=== PATIENT | female | born 1940 | race Caucasian/White ===

== ENCOUNTER 2019-05-18 05:39 | Outpatient (RCR) | payer MEDICARE, MEDICAID, SELFPAY | END 2019-05-18 09:00 | disposition home or self-care (01) | LOC: ONCMED 05:39 | PROVIDERS: Family Provider Family Medicine; Visit Provider Nurse Practitioner | DX: D46.Z Other myelodysplastic syndromes (principal); E78.00 Pure hypercholesterolemia, unspecified; K21.9 Gastro-esophageal reflux disease without esophagitis; N18.3 Chronic kidney disease, stage 3 (moderate); I12.9 Hypertensive chronic kidney disease with stage 1 through stage 4 chronic kidney disease, or unspecified chronic kidney disease; E89.0 Postprocedural hypothyroidism; F32.9 Major depressive disorder, single episode, unspecified; R32 Unspecified urinary incontinence; Z85.828 Personal history of other malignant neoplasm of skin; Z79.899 Other long term (current) drug therapy; Z79.891 Long term (current) use of opiate analgesic | CPT/HCPCS: 36415; 36430; 80053 ×3; 83615; 85025 ×4; 86850 ×3; 86900 ×3; 86901 ×3; 86920 ×6; 96374 ×2; 99214; J1940 ×2; J7050 ×2; P9040 ×6 ==

== ENCOUNTER 2019-05-18 11:07 | Outpatient (RCR) | payer MEDICARE, MEDICAID, SELFPAY | END 2019-05-18 23:59 | disposition home or self-care (01) | LOC: ONCMED 11:07 | PROVIDERS: Family Provider Family Medicine; Visit Provider Internal Medicine Medical Oncology | DX: D46.Z Other myelodysplastic syndromes (principal) | CPT/HCPCS: 36430; 96374; G0463; J1940 ==

== ENCOUNTER → 2019-05-25 00:01 | Outpatient (RCR) | payer SELFPAY | LOC: ONCMED 05-24 12:20 | PROVIDERS: Family Provider Family Medicine; Visit Provider Internal Medicine Medical Oncology | DX: D46.Z Other myelodysplastic syndromes (principal) | CPT/HCPCS: 85025; 86850; 86900; 86901; 86920 ×2; 96374; J1940; J7050; P9040 ×2 ==

== ENCOUNTER 2019-06-22 08:00 | Outpatient (RCR) | payer MEDICARE, MEDICAID, SELFPAY ==
[2019-05-31 17:32] LABS: Hematocrit 22.8 % (37.0-47.0); Hemoglobin 7.2 g/dL (11.5-15.3); Lymphocytes # 0.2 10^3/uL (0.8-4.8); Lymphocytes % 46.7 %; Mean Corpuscular HGB Conc 31.6 g/dL (30.0-36.0); Mean Corpuscular Hemoglobin 28.9 pg (28.0-34.0); Mean Corpuscular Volume 91.6 fL (81-99); Monocytes % 6.7 %; Neutrophils % 44.4 %; Nucleated Red Blood Cells % 0 %; Red Blood Count 2.49 10^6/uL (4.1-5.3); Red Cell Distribution Width 14.1 % (12.1-15.1)
[2019-05-31 17:56] LABS: White Blood Count 0.5 10^3/uL (4.0-10.0)
[2019-05-31 17:57] LABS: Neutrophils # 0.2 10^3/uL (1.8-7.7); Platelet Count 28 10^3/cmm (130-400)
[2019-05-31 23:22] LABS: Alanine Aminotransferase 24 U/L (0-33); Albumin Level 3.5 g/dL (3.5-5.2); Alkaline Phosphatase 91 IU/L (35-105); Anion Gap 14.4 (5-19); Aspartate Amino Transferase 22 U/L (0-32); Blood Urea Nitrogen 47 mg/dL (8-23); Carbon Dioxide 27 mmol/L (22-29); Chloride 96 mmol/L (98-107); Globulin 2.8 g/dL (1.3-4.6); Glucose 109 mg/dL (74-106); Potassium 4.4 mmol/L (3.5-5.1); Sodium 133 mmol/L (136-145); Total Protein 6.3 g/dL (6.6-8.7)
[2019-06-01] VITALS (10 sets, daily range): BP systolic 94–159; BP diastolic 50–65; PULSE 64–82; RESP 16; TEMP 36.8–37; O2SAT 97–98
[2019-06-01] MEDS: acetaminophen 325 mg Tablet 650 MG PO (09:50)
[2019-06-01] MEDS: diphenhydrAMINE 25 mg Capsule PO (09:50)
--- NOTE | 2019-06-07 10:37 | ONC FU_ITS ---
Dr. Chavez Patient Follow-Up Note Patient: Radha Boyd Unit #: [id number]: [id number] Dicatated By: Martin Chavez M.D.Date of Visit:Jun 01, 2019 Onc Med Follow-up/Prog Note Chief Complaint: Myelodysplasia/anemia. History of Present Illness: This is a 78 year-old woman with myelodysplasia, IPSS-R score 2.5, low risk. She has associated transfusion dependent anemia. She had initially presented in 2010 with a mild anemia, hemoglobin at that time in the range of 10 g. Her white blood cell count was borderline low at 4800, but her platelet count was mildly elevated at 459,000. Bone marrow aspiration/biopsy in February 2011 showed mildly increased cellularity, estimated at 60-70%. There were increased megakaryocytes with associated dyspoiesis in the megakaryocytes and in the red cells. Iron stores were 1+. Blasts were estimated at 1%. The chromosome analysis was normal, and the FISH panel for myelodysplasia was negative. The findings were felt to be nonspecific, but suggestive of myeloproliferative/myelodysplastic disease. She did complete a course of parenteral iron replacement with Venofer in October 2012, but there was no improvement in the anemia. She also was given the option of trying an erythropoietin stimulating agent, but as she was not overtly symptomatic, she preferred to just monitor it with observation. Over a period of several years, her hemoglobin/hematocrit levels had declined very gradually, but remaining in the range of 8 to 9 g. She had developed some fatigue with it, but not significant enough in her opinion to warrant any treatment. In 2014 she had some further elevation of the platelet count and an increasing LDH level, though hemoglobin/hematocrit levels had remained stable. She was, though, showing some decline in performance status. She also complained of persistent pain in the right leg, from the groin to the knee. Her laboratory studies in January 2015 included a JAK2 gene mutation study, which was positive for the JAK2 V617F mutation. An MRI of the right hip in February showed abnormal signal with enhancement involving the right acetabulum, lateral femoral head, and joint capsule, which appeared to be on the basis of degenerative arthritis and acute superimposed inflammatory response. She underwent repeat bone marrow aspiration/biopsy on 04/05/2015. The marrow was hypercellular, with overall cellularity 75%, but focally packed in some areas up to 100%. There was significant megakaryocytic hyperplasia and megakaryocyte dyspoiesis. There was also evidence of dyserythropoiesis and granulocytes were noted to be hypogranular. Blasts were estimated at 2%. The chromosome analysis was normal and the FISH panel for MDS was negative. 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 Her calculated IPSS-R score was still in the low risk category at 2.5. With the worsening anemia, she definitely needed to start treatment. As her IPSS-R score was still in the low risk category, I opted to give her a trial of therapy with Revlimid and to then proceed to a demethylating agent, as necessary. We had some difficulty getting insurance approval for the Revlimid, but she eventually did start treatment on 06/07/2015 at a dose of 10 mg daily. Unfortunately, within a week she developed a bad rash and itching, severe enough that she did have to stop the medication on 06/16/2015. She subsequently started a trial of therapy with decitabine, with cycle 1 day 1 on 06/26/2015. She was able to tolerate it without any significant acute toxicity. Following her 1st cycle of decitabine she had developed persistent, severe granulocytopenia, which was not unexpected. She remained afebrile on antibiotic prophylaxis with Levaquin. She continued to require transfusions of PRBC at least every week, and she also did require a platelet pheresis. At day 29 her her granulocyte count was still only 100, and I did opt to give her a treatment delay. However, she did start cycle 2 as of 07/31/2015, with a CBC at that point showing hemoglobin at 8.1 g, white blood cell count 1300 with ANC 400, and platelet count 66,000. During subsequent follow-up, her ANC again dropped to 100, though she remained afebrile on antibiotic prophylaxis. She continued to require transfusions of packed red blood cells. Her platelet counts remained moderately decreased, but adequate. At cycle 2 day 29, there was no indication of improvement in her blood counts. She underwent bone marrow aspiration/biopsy on 09/06/2015. Interpretation was somewhat limited, as it was a dry tap. Cellularity was 30%. Megakaryocytes were noted to be increased with dyspoietic changes. The most significant change was the development of significant fibrosis, with strongly positive reticulin stain and strongly positive trichrome stain. With those findings, I recommended stopping the decitabine. She did consent to going to [facility] for a second opinion evaluation. She was seen at [facility] yesterday by Dr. Jennifer Quinn. Unfortunately, with her low blood counts, her further treatment options appear to be very limited. In particular, with the low platelet count she was not eligible for treatment with ruxolitinib. She did recommend that we consider repeating bone marrow aspiration/biopsy to reassess for possible leukemic transformation. During subsequent follow-up she was admitted several times with symptoms of diverticulitis. The episodes all resolved with antibiotic therapy and other conservative measures. A repeat MRI of the right hip on 06/06/2016 showed significant improvement in the marrow fatty replacement of the proximal femurs compared to the previous study in September 2015. There was significant abnormal marrow signal in the right femoral head. There was progression in the mild destructive and degenerative changes involving the right hip joint and there was mild progression of enhancement involving the acetabulum and synovium of the right hip, possibly related to progression of myelodysplastic disease. For a period of time she had shown some evidence of spontaneous recovery of her blood counts. She had still been requiring transfusion, but less frequently. There was significant improvement in her platelet count and in her granulocyte count. Following her visit in December 2016 she was given a prescription to start treatment with Exjade for the iron overload. After some delay she eventually did start taking it, but she stopped it within a short time because she felt she was getting too many phone calls about it. I had seen her for a follow-up visit on 12/26/2017. At that point she appeared significantly weaker and more short of breath. She had jugular venous distention. Clinically I had suspected that she was in heart failure, presumably from the iron overload, and I did have her start diuretic therapy. Echocardiogram showed adequate left ventricular ejection fraction of 55%, there was grade 2 diastolic dysfunction with moderately elevated filling pressures and there was moderately increased left atrial size. There was just mild mitral valve regurgitation and mild aortic valve stenosis. Her CT abdomen/pelvis showed increased cardiomegaly compared to previous study in February 2017, consistent with progressive cardiomyopathy. There was decreased attenuation of the periportal soft tissues suggestive of mild periportal fibrosis. There was evidence of axial skeletal osteosclerosis. She required admission to the hospital on 04/11/2018 for acute diastolic heart failure. She was discharged the following day, but on 04/13/2018 she returned to the emergency room for syncope in association with profound bradycardia. She was then admitted to [facility] in [place] where she underwent placement of permanent pacemaker. Following that admission she had temporary residential placement for physical therapy/rehabilitation, and she eventually was able to get placed in [facility] for assisted living. During this time, she remained transfusion dependent. Her other medical illnesses include hypertension, hypercholesterolemia, and GERD. She has stage III chronic kidney disease. She also has a history of hyperthyroidism and history of depression. She underwent laparoscopic cholecystectomy in August 2012. She had upper GI endoscopy and colonoscopy prior to that procedure. In January 2013 she underwent repair of a ventral hernia which developed following the cholecystectomy. Prior surgeries have been limited to partial thyroidectomy for goiter in 1990 and removal of a skin cancer from the nose in 1999. She does not smoke or drink alcohol. Family history significant in that a brother was treated for renal cell cancer. INTERIM HISTORY: Following admission to [facility], she had continued decline in her performance status, in part due to her anemia and cardiac issues and in part due to progressive worsening of her right hip joint pain. The pain became severe enough that eventually did have her evaluated by Dr. Pina for possible palliative surgery/hip replacement. CT of the right hip on 02/09/2019 did confirm progressive severe degenerative arthritic changes of the right hip joint. Ultimately she was offered the option of undergoing hip replacement, but she then opted against surgery. During followup she has continued symptomatic/supporitve care. She has remained transfusion dependent. She is seen for a followup visit. She has been feeling about the same. Her only new complaint is that she has been having more swelling in her legs. She continues have very limited activity. ECOG score is 3. She says her appetite is not as good, but she is eating. She occasionally has nosebleeds, attributable to dryness. She has some shortness of breath. She does not complain of chest pain. She has just occasional nausea. Bowel function has been okay. She has urinary frequency and incontinence. She continues to have constant pain in her right hip. It is tolerable on the pain medication. Medications: Arctic Relief Pain Relieving 1 (4 %) Gel (jelly) Topical four times a day PRN, Bumex 1 (2 mg) Tablet Oral daily, Duragesic-25 1 Patch(es) (of 50 mcg/hr) Patch 72 Hr Transdermal q 72 hours, Escitalopram Oxalate 1 Tablet (of 20 mg) Oral daily, Fleet Enema Enema Rectal PRN, Hydrocodone-Acetaminophen 1 Tablet (of 10-325 mg) Oral four times a day PRN, lacri-lube opthalmic 1 Ointment q 3 hours PRN, Loratadine 1 Capsule (of 10 mg) Oral daily, Milk of Magnesia 1 (400 mg/5mL) Suspension Oral PRN, Ondansetron 1 - 2 Tablet (of 4 mg) Oral q 8 hours, raNITIdine HCl 1 (150 mg) Capsule Oral b.i.d., Requip 1 Tablet (of 0.25 mg) Oral at bedtime, Saline 2 [place](s) (of 0.65 %) Solution Nasal four times a day PRN, Soothe Solution Ophthalmic PRN, Tums Tablet, chewable Oral PRN Allergies: Amoxicillin, Codeine Sulfate, contrast dye, Lenalidoide , and Revlimid. Review of Systems: Constitutional - Her energy is low, but it does seed cone picker after her blood transfusions. She is mainly sedentary. Her appetite is not very good, but her weight is up about 5 pounds. No fever, chills, hot flashes, or night sweats. ECOG score is 3, ENMT - She has sinus drainage. No mouth sores. No sore throat or difficulty swallowing, Hematologic/Lymphatic - She has nosebleeds. She bruises easily, Respiratory - She has shortness of breath with activity. No cough. No pleuritic pain or hemoptysis, Cardiovascular - No angina pain. No palpitations, Gastrointestinal - She has occasional nausea. No vomiting. No heartburn or acid reflux. No diarrhea or constipation. No blood in the stool or black stools, Genitourinary (F) - No dysuria or hematuria. She has urinary frequency. She has urgency and incontinence, Musculoskeletal - She has pain in her hip, Integumentary - No skin complications, Neurologic - No headache or dizziness. She has occasional numbness and tingling in her feet, Psychiatric - She has some depression and she wants to sleep all the time. No insomnia. Vital Signs: Performed on Jun 01, 2019 08:22 Height - 62.00 in Weight - 165.4 lbs (HIGH) BSA - 1.76 sq.m BMI - 30.25 (HIGH) Temperature - 98.2 F (LOW) Pulse - 75 /min Respiration - 16 /min BP - 96/44 mm(hg) O2 Sat - 96 % Pain - 0 Physical Examination: Constitutional - She appears generally weak, Eyes - Sclerae nonicteric. Conjunctivae clear, ENMT - No lesions noted in the oral cavity, Hematologic/Lymphatic - No cervical, clavicular, or axillary adenopathy, Respiratory - Lungs sound clear, Cardiovascular - Heart rhythm is regular. There is a III/ systolic murmur. There is no gallop or rub noted, Abdomen - Soft. Liver is enlarged. Spleen is not palpable. There is no abdominal mass or ascites noted and there is no inguinal adenopathy, Extremities - There is 3+ lower extremity edema on the right and 2+ on the left. She has extensive purpura, Neurologic - No focal neurologic deficits noted. Lab/Imaging: Test performed on May 31, 2019 16:23 Glucose 109 mg/dL BUN 47 mg/dL Creatinine 1.4 mg/dL Cr Clearance (Est) 38.59 mL/min Sodium 133 mmol/L Potassium 4.4 mmol/L Chloride 96 mmol/L CO2 27 mmol/L Calcium 9 mg/dL Protein, Total 6.3 g/dL Albumin 3.5 g/dL Globulin 2.8 g/dL Bilirubin, Total 1 mg/dL Alkaline Phosphatase 91 IU/L AST (SGOT) 22 IU/L ALT (SGPT) 24 IU/L WBC 0.5 10^9/L RBC 2.49 10^12/L HGB 7.2 g/dL HCT 22.8 % MCV 91.6 fl MCH 28.9 pg MCHC 31.6 g/dL RDW 14.1 % Platelet Count 28 10^9/L MPV 15 fL Neutrophils (Gran) 0.2 10^9/L Lymphocytes 0.2 10^9/L Monocytes 0 10^9/L Eosinophils 0 10^9/L Basophils 0 10^9/L Manual Segs 44.4 % Manual Lymphocytes 46.7 % Manual Monocytes 6.7 % Manual Eosinophils 0 % Manual Basophils 0 % Impression: 1. Patient with moderately severe anemia along with a mildly decreased white blood cell count and a mildly increased platelet count. The initial bone marrow findings in February 2011 were consistent with myelodysplasia. She opted not to attempt any treatment, as she really had not been all that symptomatic. 2. In December 2014 she had a significant increase in her platelet count and her LDH level also increased significantly. She then had a drop in her hemoglobin/hematocrit levels. A JAK2 gene mutation study was positive for the JAK2 V617F mutation. Along with the changes in her blood count, she had a significant decline in her performance status, and she also became transfusion dependent. 3. Repeat bone marrow aspiration/biopsy on 04/05/2015 continued to show findings consistent with myeloproliferative disease/myelodysplasia, though with no identifiable cytogenetic changes. Her calculated IPSS-R score was 2.5, low risk category. 4. A trial of Revlimid at 10 mg daily was initiated on 06/07/2015. Treatment was stopped as of 06/16/2015 due to multiple side effects, most significantly a skin eruption. 5. She then started treatment with decitabine, cycle 1 day 1 on 06/26/2015. She subsequently developed severe, persistent granulocytopenia, and she also remained transfusion dependent. 6. She received a second cycle of decitabine starting 07/31/2015. During subsequent follow-up she has had no evidence of response, as she has continued to have severe granulocytopenia and moderately severe thrombocytopenia, and she remained transfusion dependent. 7. She had repeat bone marrow aspiration/biopsy on 09/06/2015. Interpretation was somewhat limited, as it was a dry tap. Cellularity was 30%. Megakaryocytes were noted to be increased with dyspoietic changes. The most significant change was the development of significant fibrosis, with strongly positive reticulin stain and strongly positive trichrome stain. 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 Due to her low platelet count it was felt that she was not appropriate for treatment with ruxolitinib. 8. She had ongoing complaint of fairly severe pain in the right leg, from the groin down to the knee. MRI of the right hip showed findings which appeared most consistent with severe degenerative arthritis. 9. She has had several hospital admissions for symptoms of diverticulitis. These have resolved with conservative management. 10. She had evidence of transfusion associated iron overload, but she declined to treatment for it. 11. She has CT evidence of gradually enlarging goiter with extension into the mediastinum. In November 2017 she had presented to the emergency room with fullness in her throat and difficulty swallowing. She was also having shortness of breath and cough. In addition, during the preceding month she had developed increasing lower extremity edema. By clinical evaluation she appeared to be in heart failure, and a subsequent echocardiogram did show evidence of grade [address] abdomen/pelvis showed increasing cardiomegaly since February 2017, consistent with progressive cardiomyopathy. There were also findings in the liver suggestive of periportal fibrosis. 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 In March 2018 she required admission to the hospital for acute diastolic congestive heart failure, and she then required placement of permanent pacemaker for syncope in association with profound bradycardia. During subsequent follow-up she continued to require transfusion on a regular basis, and there was a continued gradual decline in her performance status. She eventually was admitted to [facility] for assisted living. Initially she did show some improvement in her quality of life. However, it has since then been declining, in large part due to the worsening pain in the right hip. She was evaluated by Dr. Pina, and she was offered the option of undergoing palliative hip replacement, but she ultimately opted against surgery. She has since then continued symptomatic/supportive care. She has remained transfusion dependent. She continues to have fairly marginal performance status. She recently has developed more significant lower extremity edema. Her blood pressure now is relatively low. Plan: Blood counts will be monitored weekly and she will be transfused as needed for hemoglobin less than 8 gm. I will stop the losartan. She will be scheduled for a followup visit in 2 months. Signed By: Martin Chavez M.D. <<Signature on File>>
[2019-06-07 14:29] LABS: Alanine Aminotransferase 27 U/L (0-33); Albumin Level 3.8 g/dL (3.5-5.2); Alkaline Phosphatase 100 IU/L (35-105); Anion Gap 14.4 (5-19); Aspartate Amino Transferase 24 U/L (0-32); Blood Urea Nitrogen 41 mg/dL (8-23); Calcium 9.1 mg/Dl (8.8-10.2); Carbon Dioxide 27 mmol/L (22-29); Chloride 96 mmol/L (98-107); Globulin 2.8 g/dL (1.3-4.6); Glucose 124 mg/dL (74-106); Potassium 4.4 mmol/L (3.5-5.1); Sodium 133 mmol/L (136-145); Total Bilirubin 1.1 mg/dL (0.15-1.2); Total Protein 6.6 g/dL (6.6-8.7)
[2019-06-07 15:17] LABS: Hematocrit 25.9 % (37.0-47.0); Hemoglobin 8.1 g/dL (11.5-15.3); Lymphocytes # 0.4 10^3/uL (0.8-4.8); Lymphocytes % 46.1 %; Mean Corpuscular HGB Conc 31.3 g/dL (30.0-36.0); Mean Corpuscular Hemoglobin 29.8 pg (28.0-34.0); Mean Corpuscular Volume 95.2 fL (81-99); Monocytes # 0.1 10^3/uL (0.2-0.9); Monocytes % 6.6 %; Nucleated Red Blood Cells % 0 %; Platelet Count 41 10^3/cmm (130-400); Red Blood Count 2.72 10^6/uL (4.1-5.3); Red Cell Distribution Width 14.1 % (12.1-15.1)
[2019-06-07 15:19] LABS: Neutrophils # 0.4 10^3/uL (1.8-7.7); White Blood Count 0.8 10^3/uL (4.0-10.0)
[2019-06-08] MEDS: diphenhydrAMINE 25 mg Capsule PO (08:45)
[2019-06-08] MEDS: acetaminophen 325 mg Tablet 650 MG PO (08:45)
[2019-06-08 09:10] VITALS: BP 93/56; RESP 18; TEMP 37.1; O2SAT 96
[2019-06-08 09:25] VITALS: BP 134/61; PULSE 72; RESP 18; O2SAT 99
[2019-06-08 10:25] VITALS: BP 130/62; PULSE 72; RESP 18; TEMP 37.2; O2SAT 95
[2019-06-08] MEDS: FUROsemide 10 mg/mL SDV 2mL 20 MG IV (10:30)
[2019-06-08 11:05] VITALS: BP 142/62; PULSE 70; RESP 18; TEMP 37.2
[2019-06-08] MEDS: sodium chloride 0.9% 250 ML 999 ML IV (11:08)
[2019-06-08 11:20] VITALS: BP 138/58; PULSE 70; RESP 18; TEMP 37.1; O2SAT 96
[2019-06-08 12:00] VITALS: BP 138/58; PULSE 70; RESP 18; TEMP 37.3; O2SAT 96
[2019-06-14 12:10] LABS: Hematocrit 23.2 % (37.0-47.0); Hemoglobin 7.4 g/dL (11.5-15.3); Lymphocytes # 0.2 10^3/uL (0.8-4.8); Lymphocytes % 45.7 %; Mean Corpuscular HGB Conc 31.9 g/dL (30.0-36.0); Mean Corpuscular Hemoglobin 29.1 pg (28.0-34.0); Mean Corpuscular Volume 91.3 fL (81-99); Monocytes % 8.7 %; Neutrophils % 43.4 %; Nucleated Red Blood Cells % 0 %; Red Blood Count 2.54 10^6/uL (4.1-5.3); Red Cell Distribution Width 13.6 % (12.1-15.1)
[2019-06-14 12:12] LABS: Neutrophils # 0.2 10^3/uL (1.8-7.7); Platelet Count 28 10^3/cmm (130-400); White Blood Count 0.5 10^3/uL (4.0-10.0)
[2019-06-14 14:24] LABS: Alanine Aminotransferase 29 U/L (0-33); Albumin Level 3.2 g/dL (3.5-5.2); Alkaline Phosphatase 91 IU/L (35-105); Anion Gap 16.5 (5-19); Aspartate Amino Transferase 25 U/L (0-32); Blood Urea Nitrogen 48 mg/dL (8-23); Calcium 8.7 mg/Dl (8.8-10.2); Carbon Dioxide 25 mmol/L (22-29); Chloride 96 mmol/L (98-107); Glucose 137 mg/dL (74-106); Potassium 4.5 mmol/L (3.5-5.1); Sodium 133 mmol/L (136-145); Total Bilirubin 1.3 mg/dL (0.15-1.2); Total Protein 6.2 g/dL (6.6-8.7)
[2019-06-15] VITALS (9 sets, daily range): BP systolic 132–162; BP diastolic 65–74; PULSE 67–74; RESP 18; TEMP 36.6–37.3; O2SAT 95–100
[2019-06-15] MEDS: sodium chloride 0.9% 250 ML 999 ML IV (08:30)
[2019-06-15] MEDS: diphenhydrAMINE 25 mg Capsule PO (08:30)
[2019-06-15] MEDS: acetaminophen 325 mg Tablet 650 MG PO (08:30)
[2019-06-15] MEDS: FUROsemide 10 mg/mL SDV 2mL 20 MG IV (11:00)
[2019-06-21 15:38] LABS: Hematocrit 22.3 % (37.0-47.0); Hemoglobin 7.2 g/dL (11.5-15.3); Lymphocytes # 0.2 10^3/uL (0.8-4.8); Mean Corpuscular HGB Conc 32.3 g/dL (30.0-36.0); Mean Corpuscular Hemoglobin 29.3 pg (28.0-34.0); Mean Corpuscular Volume 90.7 fL (81-99); Monocytes % 8.3 %; Neutrophils % 39.6 %; Nucleated Red Blood Cells % 0 %; Red Blood Count 2.46 10^6/uL (4.1-5.3); Red Cell Distribution Width 13.2 % (12.1-15.1)
[2019-06-21 16:39] LABS: Neutrophils # 0.2 10^3/uL (1.8-7.7); Platelet Count 28 10^3/cmm (130-400); Slide Review Slide Review Perform; White Blood Count 0.5 10^3/uL (4.0-10.0)
[2019-06-22] VITALS (8 sets, daily range): BP systolic 108–153; BP diastolic 57–69; PULSE 68–78; RESP 18; TEMP 36.8–36.9; O2SAT 95–97
[2019-06-22] MEDS: acetaminophen 325 mg Tablet 650 MG PO (13:56)
[2019-06-22] MEDS: diphenhydrAMINE 25 mg Capsule PO (13:57)
[2019-06-22] MEDS: sodium chloride 0.9% 250 ML 999 ML IV (13:59)
[2019-06-22] MEDS: sodium chloride 0.9% 100 ML IV (13:59)
[2019-06-22] MEDS: sodium chloride 0.9% 100 ML 99 ML (14:00)
== END 2019-06-25 23:59 | disposition home or self-care (01) ==
LOC: ONCMED 08:00
PROVIDERS: Nurse Practitioner; Family Provider Family Medicine; PCP Family Medicine; Visit Provider Internal Medicine Medical Oncology
DX: D46.Z Other myelodysplastic syndromes (principal); E83.111 Hemochromatosis due to repeated red blood cell transfusions; K74.69 Other cirrhosis of liver; I42.9 Cardiomyopathy, unspecified; I13.0 Hypertensive heart and chronic kidney disease with heart failure and stage 1 through stage 4 chronic kidney disease, or unspecified chronic kidney disease; N18.3 Chronic kidney disease, stage 3 (moderate); I50.30 Unspecified diastolic (congestive) heart failure; E78.00 Pure hypercholesterolemia, unspecified; K21.9 Gastro-esophageal reflux disease without esophagitis; F32.9 Major depressive disorder, single episode, unspecified; E89.0 Postprocedural hypothyroidism; Z79.899 Other long term (current) drug therapy; Z79.891 Long term (current) use of opiate analgesic; Z85.828 Personal history of other malignant neoplasm of skin; Z90.49 Acquired absence of other specified parts of digestive tract; Z95.0 Presence of cardiac pacemaker
CPT/HCPCS: 36415; 36430; 80053; 85025; 86850; 86900; 99214; J1940; J7050; P9040

== ENCOUNTER 2019-07-19 03:45 | Outpatient (RCR) | payer MEDICARE, MEDICAID, SELFPAY ==
[2019-06-28 14:55] LABS: Hemoglobin 7.9 g/dL (11.5-15.3); Lymphocytes # 0.3 10^3/uL (0.8-4.8); Lymphocytes % 54.4 %; Mean Corpuscular HGB Conc 31.6 g/dL (30.0-36.0); Mean Corpuscular Hemoglobin 28.7 pg (28.0-34.0); Mean Corpuscular Volume 90.9 fL (81-99); Neutrophils % 36.8 %; Nucleated Red Blood Cells % 0 %; Platelet Count 37 10^3/cmm (130-400); Red Blood Count 2.75 10^6/uL (4.1-5.3); Red Cell Distribution Width 13.2 % (12.1-15.1)
[2019-06-28 15:03] LABS: Neutrophils # 0.2 10^3/uL (1.8-7.7); White Blood Count 0.6 10^3/uL (4.0-10.0)
[2019-06-28 15:17] LABS: Alanine Aminotransferase 25 U/L (0-33); Albumin Level 3.1 g/dL (3.5-5.2); Alkaline Phosphatase 105 IU/L (35-105); Anion Gap 15.5 (5-19); Aspartate Amino Transferase 22 U/L (0-32); Blood Urea Nitrogen 47 mg/dL (8-23); Calcium 8.9 mg/dL (8.5-10.5); Carbon Dioxide 26 mmol/L (22-29); Chloride 94 mmol/L (98-107); Globulin 3.5 g/dL (1.3-4.6); Glucose 116 mg/dL (74-106); Potassium 4.5 mmol/L (3.5-5.1); Sodium 131 mmol/L (136-145); Total Bilirubin 1.1 mg/dL (0.15-1.2); Total Protein 6.6 g/dL (6.6-8.7)
[2019-06-29] VITALS (9 sets, daily range): BP systolic 110–128; BP diastolic 50–68; PULSE 66–78; RESP 18; TEMP 36.6–37; O2SAT 95–98
[2019-06-29] MEDS: acetaminophen 325 mg Tablet 650 MG PO (16:14)
[2019-06-29] MEDS: diphenhydrAMINE 25 mg Capsule PO (16:15)
[2019-06-29] MEDS: sodium chloride 0.9% 500 ML 999 ML IV (16:16)
[2019-06-29] MEDS: FUROsemide 10 mg/mL SDV 2mL 20 MG IV (16:16)
[2019-07-05 15:08] LABS: Basophils % 1.7 %; Hematocrit 24.8 % (37.0-47.0); Hemoglobin 7.8 g/dL (11.5-15.3); Lymphocytes # 0.3 10^3/uL (0.8-4.8); Lymphocytes % 53.3 %; Mean Corpuscular HGB Conc 31.5 g/dL (30.0-36.0); Mean Corpuscular Hemoglobin 27.6 pg (28.0-34.0); Mean Corpuscular Volume 87.6 fL (81-99); Monocytes # 0.1 10^3/uL (0.2-0.9); Monocytes % 8.3 %; Nucleated Red Blood Cells % 0 %; Platelet Count 32 10^3/cmm (130-400); Red Blood Count 2.83 10^6/uL (4.1-5.3); Red Cell Distribution Width 13.9 % (12.1-15.1)
[2019-07-05 15:23] LABS: Alanine Aminotransferase 27 U/L (0-33); Albumin Level 3.3 g/dL (3.5-5.2); Alkaline Phosphatase 103 IU/L (35-105); Anion Gap 14.1 (5-19); Aspartate Amino Transferase 23 U/L (0-32); Blood Urea Nitrogen 57 mg/dL (8-23); Calcium 8.6 mg/dL (8.5-10.5); Carbon Dioxide 25 mmol/L (22-29); Chloride 96 mmol/L (98-107); Glucose 135 mg/dL (65-115); Potassium 5.1 mmol/L (3.5-5.1); Sodium 130 mmol/L (136-145); Total Bilirubin 0.8 mg/dL (0.15-1.2); Total Protein 6.3 g/dL (6.6-8.7)
[2019-07-05 15:26] LABS: Neutrophils # 0.2 10^3/uL (1.8-7.7); White Blood Count 0.6 10^3/uL (4.0-10.0)
[2019-07-07] VITALS (9 sets, daily range): BP systolic 121–134; BP diastolic 54–62; PULSE 67–73; RESP 18; TEMP 36.6–36.9; O2SAT 96
[2019-07-07] MEDS: acetaminophen 325 mg Tablet 650 MG PO (16:15)
[2019-07-07] MEDS: sodium chloride 0.9% 250 ML 999 ML IV (16:15)
[2019-07-07] MEDS: FUROsemide 10 mg/mL SDV 2mL 20 MG IV (16:16)
[2019-07-07] MEDS: diphenhydrAMINE 25 mg Capsule PO (16:17)
[2019-07-12 08:16] LABS: Hematocrit 25.5 % (37.0-47.0); Hemoglobin 8.1 g/dL (11.5-15.3); Lymphocytes # 0.4 10^3/uL (0.8-4.8); Mean Corpuscular HGB Conc 31.8 g/dL (30.0-36.0); Mean Corpuscular Hemoglobin 27.4 pg (28.0-34.0); Mean Corpuscular Volume 86.1 fL (81-99); Monocytes % 5.7 %; Neutrophils % 26.4 %; Nucleated Red Blood Cells % 0 %; Platelet Count 38 10^3/cmm (130-400); Red Blood Count 2.96 10^6/uL (4.1-5.3); Red Cell Distribution Width 13.5 % (12.1-15.1)
[2019-07-12 08:31] LABS: Mean Platelet Volume 10.5 fL (7.4-10.4); Neutrophils # 0.1 10^3/uL (1.8-7.7); White Blood Count 0.5 10^3/uL (4.0-10.0)
[2019-07-13] VITALS (9 sets, daily range): BP systolic 112–121; BP diastolic 59–64; PULSE 64–70; RESP 18; TEMP 20.5–37.1; O2SAT 96–98
[2019-07-13] MEDS: diphenhydrAMINE 25 mg Capsule PO (14:42)
[2019-07-13] MEDS: acetaminophen 325 mg Tablet 650 MG PO (14:42)
[2019-07-13] MEDS: FUROsemide 10 mg/mL SDV 2mL 20 MG IV (14:54)
[2019-07-13] MEDS: sodium chloride 0.9% 250 ML 999 ML IV (14:56)
[2019-07-19 08:45] LABS: Hematocrit 27.1 % (37.0-47.0); Hemoglobin 8.6 g/dL (11.5-15.3); Lymphocytes # 0.3 10^3/uL (0.8-4.8); Lymphocytes % 58.5 %; Mean Corpuscular HGB Conc 31.7 g/dL (30.0-36.0); Mean Corpuscular Hemoglobin 29.1 pg (28.0-34.0); Mean Corpuscular Volume 91.6 fL (81-99); Monocytes % 7.5 %; Neutrophils % 32.1 %; Nucleated Red Blood Cells % 0 %; Platelet Count 31 10^3/cmm (130-400); Red Blood Count 2.96 10^6/uL (4.1-5.3); Red Cell Distribution Width 13.5 % (12.1-15.1)
[2019-07-19 09:40] LABS: Neutrophils # 0.2 10^3/uL (1.8-7.7); White Blood Count 0.5 10^3/uL (4.0-10.0)
== END 2019-07-24 23:59 | disposition home or self-care (01) ==
LOC: ONCMED 03:45
PROVIDERS: Nurse Practitioner; Family Provider Family Medicine; PCP Family Medicine; Visit Provider Internal Medicine Medical Oncology
DX: D46.Z Other myelodysplastic syndromes (principal)
CPT/HCPCS: 36415; 36430; 80053; 85025; 86850; 86900; 96361; 96374; J1940; J7040; J7050; P9040

== ENCOUNTER 2019-08-24 08:21 | Outpatient (RCR) | payer MEDICARE, MEDICAID, SELFPAY ==
[2019-07-26] VITALS (9 sets, daily range): BP systolic 111–139; BP diastolic 52–72; PULSE 71–74; RESP 17–18; TEMP 36.6–37; O2SAT 96–98
[2019-07-26 09:45] LABS: Basophils % 1.1 %; Hematocrit 24.3 % (37.0-47.0); Hemoglobin 7.6 g/dL (11.5-15.3); Lymphocytes # 0.6 10^3/uL (0.8-4.8); Lymphocytes % 61.1 %; Mean Corpuscular HGB Conc 31.3 g/dL (30.0-36.0); Mean Corpuscular Hemoglobin 28.7 pg (28.0-34.0); Mean Corpuscular Volume 91.7 fL (81-99); Monocytes # 0.1 10^3/uL (0.2-0.9); Monocytes % 5.3 %; Neutrophils % 31.4 %; Nucleated Red Blood Cells % 0 %; Platelet Count 53 10^3/cmm (130-400); Red Blood Count 2.65 10^6/uL (4.1-5.3)
[2019-07-26 10:17] LABS: Neutrophils # 0.3 10^3/uL (1.8-7.7)
[2019-07-26] MEDS: sodium chloride 0.9% 250 ML 999 ML IV (17:07)
[2019-07-26] MEDS: FUROsemide 10 mg/mL SDV 2mL 20 MG IV (17:07)
[2019-07-26] MEDS: diphenhydrAMINE 25 mg Capsule PO (17:07)
[2019-07-26] MEDS: acetaminophen 325 mg Tablet 650 MG PO (17:07)
[2019-08-02 08:55] LABS: Hematocrit 22.3 % (37.0-47.0); Hemoglobin 7.1 g/dL (11.5-15.3); Lymphocytes # 0.3 10^3/uL (0.8-4.8); Lymphocytes % 55.6 %; Mean Corpuscular HGB Conc 31.8 g/dL (30.0-36.0); Mean Corpuscular Hemoglobin 29.3 pg (28.0-34.0); Mean Corpuscular Volume 92.1 fL (81-99); Monocytes % 4.4 %; Neutrophils % 35.6 %; Nucleated Red Blood Cells % 0 %; Platelet Count 30 10^3/cmm (130-400); Red Blood Count 2.42 10^6/uL (4.1-5.3); Red Cell Distribution Width 13.5 % (12.1-15.1)
[2019-08-02 09:20] LABS: Alanine Aminotransferase 17 U/L (0-33); Alkaline Phosphatase 100 IU/L (35-105); Anion Gap 13.5 (5-19); Aspartate Amino Transferase 16 U/L (0-32); Blood Urea Nitrogen 32 mg/dL (8-23); Calcium 8.7 mg/dL (8.5-10.5); Carbon Dioxide 26 mmol/L (22-29); Chloride 99 mmol/L (98-107); Globulin 3.2 g/dL (1.3-4.6); Glucose 91 mg/dL (65-115); Osmolality Calculated 275 mOsm/kg (285-295); Potassium 4.5 mmol/L (3.5-5.1); Sodium 134 mmol/L (136-145); Total Bilirubin 1.1 mg/dL (0.15-1.2); Total Protein 6.2 g/dL (6.6-8.7)
[2019-08-02 09:56] LABS: Neutrophils # 0.2 10^3/uL (1.8-7.7); Slide Review Slide Review Perform; White Blood Count 0.5 10^3/uL (4.0-10.0)
[2019-08-03] VITALS (11 sets, daily range): BP systolic 124–163; BP diastolic 49–71; PULSE 66–71; RESP 18; TEMP 36.4–36.8; O2SAT 97–99
[2019-08-03] MEDS: diphenhydrAMINE 25 mg Capsule PO (08:10)
[2019-08-03] MEDS: acetaminophen 325 mg Tablet 650 MG PO (08:10)
[2019-08-03] MEDS: sodium chloride 0.9% 250 ML 999 ML IV (08:20)
[2019-08-03] MEDS: FUROsemide 10 mg/mL SDV 2mL 20 MG IV (10:00)
[2019-08-03] MEDS: HYDROmorphone 1 mg/mL INJ 1 mL 2 MG SUBCUT (10:15)
--- NOTE | 2019-08-03 11:45 | PC.NURSE ---
IV dc'd and this time, catheter intake, site asymptomatic.
[2019-08-09 17:39] LABS: Hematocrit 23.7 % (37.0-47.0); Hemoglobin 7.4 g/dL (11.5-15.3); Lymphocytes # 0.4 10^3/uL (0.8-4.8); Lymphocytes % 60.9 %; Mean Corpuscular HGB Conc 31.2 g/dL (30.0-36.0); Mean Corpuscular Hemoglobin 29.4 pg (28.0-34.0); Monocytes # 0.1 10^3/uL (0.2-0.9); Monocytes % 11.6 %; Neutrophils % 26.1 %; Nucleated Red Blood Cells % 0 %; Platelet Count 34 10^3/cmm (130-400); Red Blood Count 2.52 10^6/uL (4.1-5.3); Red Cell Distribution Width 13.6 % (12.1-15.1)
[2019-08-09 18:00] LABS: Neutrophils # 0.2 10^3/uL (1.8-7.7); White Blood Count 0.7 10^3/uL (4.0-10.0)
[2019-08-10] VITALS (10 sets, daily range): BP systolic 104–148; BP diastolic 48–64; PULSE 65–94; RESP 18; TEMP 36.2–36.9; O2SAT 95–97
[2019-08-10] MEDS: diphenhydrAMINE 25 mg Capsule PO (12:32)
[2019-08-10] MEDS: sodium chloride 0.9% 250 ML 999 ML IV (12:32)
[2019-08-10] MEDS: acetaminophen 325 mg Tablet 650 MG PO (12:32)
[2019-08-10] MEDS: FUROsemide 10 mg/mL SDV 2mL 20 MG IV (14:40)
[2019-08-16] VITALS (10 sets, daily range): BP systolic 117–159; BP diastolic 55–67; PULSE 65–82; RESP 16–18; TEMP 36.2–36.6; O2SAT 94–98
[2019-08-16 06:15] LABS: Basophils % 1.5 %; Hematocrit 25.4 % (37.0-47.0); Hemoglobin 8.1 g/dL (11.5-15.3); Lymphocytes # 0.4 10^3/uL (0.8-4.8); Lymphocytes % 58.8 %; Mean Corpuscular HGB Conc 31.9 g/dL (30.0-36.0); Mean Corpuscular Hemoglobin 28.8 pg (28.0-34.0); Mean Corpuscular Volume 90.4 fL (81-99); Monocytes # 0.1 10^3/uL (0.2-0.9); Monocytes % 7.4 %; Neutrophils % 30.8 %; Nucleated Red Blood Cells % 0 %; Platelet Count 36 10^3/cmm (130-400); Red Blood Count 2.81 10^6/uL (4.1-5.3); Red Cell Distribution Width 13.3 % (12.1-15.1)
[2019-08-16 08:27] LABS: Neutrophils # 0.2 10^3/uL (1.8-7.7); White Blood Count 0.7 10^3/uL (4.0-10.0)
[2019-08-16] MEDS: acetaminophen 325 mg Tablet 650 MG PO (10:55)
[2019-08-16] MEDS: diphenhydrAMINE 25 mg Capsule PO (10:55)
[2019-08-16] MEDS: sodium chloride 0.9% 250 ML 999 ML IV (11:00)
[2019-08-16] MEDS: FUROsemide 10 mg/mL SDV 2mL 20 MG IV (13:08)
[2019-08-23 12:00] LABS: Hematocrit 22.7 % (37.0-47.0); Hemoglobin 7.2 g/dL (11.5-15.3); Lymphocytes # 0.3 10^3/uL (0.8-4.8); Lymphocytes % 56.4 %; Mean Corpuscular HGB Conc 31.7 g/dL (30.0-36.0); Mean Corpuscular Volume 91.5 fL (81-99); Monocytes % 7.3 %; Neutrophils % 34.5 %; Nucleated Red Blood Cells % 0 %; Platelet Count 32 10^3/cmm (130-400); Red Blood Count 2.48 10^6/uL (4.1-5.3); Red Cell Distribution Width 13.2 % (12.1-15.1)
[2019-08-23 13:00] LABS: Alanine Aminotransferase 24 U/L (0-33); Albumin Level 3.1 g/dL (3.5-5.2); Alkaline Phosphatase 96 IU/L (35-105); Anion Gap 13.6 (5-19); Aspartate Amino Transferase 22 U/L (0-32); Blood Urea Nitrogen 44 mg/dL (8-23); Calcium 8.9 mg/dL (8.5-10.5); Carbon Dioxide 27 mmol/L (22-29); Chloride 99 mmol/L (98-107); Free T4 Free Thyroxine 1.42 ng/dL (0.82-1.77); Globulin 2.6 g/dL (1.3-4.6); Glucose 85 mg/dL (65-115); Lactate Dehydrogenase 143 U/L (135-214); Osmolality Calculated 277 mOsm/kg (285-295); Potassium 4.6 mmol/L (3.5-5.1); Sodium 135 mmol/L (136-145); Thyroid Stimulating Hormone 0.05 uIU/mL (0.27-4.20); Total Bilirubin 1.2 mg/dL (0.15-1.2); Total Protein 5.7 g/dL (6.6-8.7)
[2019-08-23 13:53] LABS: Neutrophils # 0.2 10^3/uL (1.8-7.7); White Blood Count 0.6 10^3/uL (4.0-10.0)
[2019-08-23 13:54] LABS: Slide Review Slide Review Perform
[2019-08-24] VITALS (10 sets, daily range): BP systolic 117–132; BP diastolic 57–68; PULSE 68–80; RESP 16; TEMP 36.6–37.1; O2SAT 94–97
[2019-08-24] MEDS: sodium chloride 0.9% 250 ML 999 ML IV (09:00)
[2019-08-24] MEDS: ondansetron 2 mg/ML SDV 2 mL 8 MG IV (09:06)
[2019-08-24] MEDS: diphenhydrAMINE 25 mg Capsule PO (09:10)
[2019-08-24] MEDS: acetaminophen 325 mg Tablet 650 MG PO (09:10)
[2019-08-24] MEDS: FUROsemide 10 mg/mL SDV 2mL 20 MG IV (11:30)
== END 2019-08-24 23:59 | disposition home or self-care (01) ==
LOC: ONCMED 08:21
PROVIDERS: Family Provider Family Medicine; PCP Family Medicine; Visit Provider Internal Medicine Medical Oncology
DX: D64.9 Anemia, unspecified (principal)
CPT/HCPCS: 36430; 80053; 83615; 84439; 84443; 85025; 86850; 86900; 86920; 96372; 96374; J1170; J1940; J2405; J7050; P9040

== ENCOUNTER 2019-09-13 05:30 | Outpatient (RCR) | payer MEDICARE, MEDICAID, SELFPAY ==
[2019-08-30 07:34] LABS: Hematocrit 24.3 % (37.0-47.0); Hemoglobin 7.6 g/dL (11.5-15.3); Lymphocytes # 0.4 10^3/uL (0.8-4.8); Lymphocytes % 69.5 %; Mean Corpuscular HGB Conc 31.3 g/dL (30.0-36.0); Mean Corpuscular Hemoglobin 28.7 pg (28.0-34.0); Mean Corpuscular Volume 91.7 fL (81-99); Monocytes # 0.1 10^3/uL (0.2-0.9); Monocytes % 8.5 %; Neutrophils % 20.3 %; Nucleated Red Blood Cells % 0 %; Platelet Count 33 10^3/cmm (130-400); Red Blood Count 2.65 10^6/uL (4.1-5.3); Red Cell Distribution Width 13.1 % (12.1-15.1)
[2019-08-30 07:55] LABS: Alanine Aminotransferase 23 U/L (0-33); Albumin Level 3.1 g/dL (3.5-5.2); Alkaline Phosphatase 110 IU/L (35-105); Anion Gap 11.7 (5-19); Aspartate Amino Transferase 22 U/L (0-32); Blood Urea Nitrogen 39 mg/dL (8-23); Calcium 8.6 mg/dL (8.5-10.5); Carbon Dioxide 27 mmol/L (22-29); Chloride 98 mmol/L (98-107); Free T4 Free Thyroxine 1.38 ng/dL (0.82-1.77); Globulin 3.1 g/dL (1.3-4.6); Glucose 85 mg/dL (65-115); Lactate Dehydrogenase 149 U/L (135-214); Osmolality Calculated 271 mOsm/kg (285-295); Potassium 4.7 mmol/L (3.5-5.1); Sodium 132 mmol/L (136-145); Thyroid Stimulating Hormone 0.04 uIU/mL (0.27-4.20); Total Bilirubin 1.4 mg/dL (0.15-1.2); Total Protein 6.2 g/dL (6.6-8.7)
[2019-08-30 08:05] LABS: Slide Review Slide Review Perform
[2019-08-30 08:21] LABS: White Blood Count 0.6 10^3/uL (4.0-10.0)
[2019-08-30 08:22] LABS: Neutrophils # 0.1 10^3/uL (1.8-7.7)
[2019-08-31] VITALS (10 sets, daily range): BP systolic 128–152; BP diastolic 55–70; PULSE 67–76; RESP 17–18; TEMP 37.1–37.6; O2SAT 95–97
[2019-08-31] MEDS: diphenhydrAMINE 25 mg Capsule PO (08:30)
[2019-08-31] MEDS: acetaminophen 325 mg Tablet 650 MG PO ×2 (08:30→12:06)
[2019-08-31] MEDS: HYDROmorphone 1 mg/mL INJ 1 mL SUBCUT (08:34)
[2019-08-31] MEDS: sodium chloride 0.9% 250 ML 999 ML IV (09:00)
[2019-08-31] MEDS: FUROsemide 10 mg/mL SDV 2mL 20 MG IV (10:42)
--- NOTE | 2019-08-31 12:34 | ONC FU_ITS ---
Dr. Chavez Patient Follow-Up Note Patient: Radha Boyd Unit #: [id number]: 1940 Dicatated By: Martin Chavez M.D.Date of Visit:Aug 31, 2019 Onc Med Follow-up/Prog Note Chief Complaint: Myelodysplasia/anemia. History of Present Illness: This is an 79 year-old woman with myelodysplasia, IPSS-R score 2.5, low risk. She has associated transfusion dependent anemia and associated iron overload. She had initially presented in 2010 with a mild anemia, hemoglobin at that time in the range of 10 g. Her white blood cell count was borderline low at 4800, but her platelet count was mildly elevated at 459,000. Bone marrow aspiration/biopsy in February 2011 showed mildly increased cellularity, estimated at 60-70%. There were increased megakaryocytes with associated dyspoiesis in the megakaryocytes and in the red cells. Iron stores were 1+. Blasts were estimated at 1%. The chromosome analysis was normal, and the FISH panel for myelodysplasia was negative. The findings were felt to be nonspecific, but suggestive of myeloproliferative/myelodysplastic disease. She did complete a course of parenteral iron replacement with Venofer in October 2012, but there was no improvement in the anemia. She also was given the option of trying an erythropoietin stimulating agent, but as she was not overtly symptomatic, she preferred to just monitor it with observation. Over a period of several years, her hemoglobin/hematocrit levels had declined very gradually, but remaining in the range of 8 to 9 g. She had developed some fatigue with it, but not significant enough in her opinion to warrant any treatment. In 2014 she had some further elevation of the platelet count and an increasing LDH level, though hemoglobin/hematocrit levels had remained stable. She was, though, showing some decline in performance status. She also complained of persistent pain in the right leg, from the groin to the knee. Her laboratory studies in January 2015 included a JAK2 gene mutation study, which was positive for the JAK2 V617F mutation. An MRI of the right hip in February showed abnormal signal with enhancement involving the right acetabulum, lateral femoral head, and joint capsule, which appeared to be on the basis of degenerative arthritis and acute superimposed inflammatory response. She underwent repeat bone marrow aspiration/biopsy on 04/05/2015. The marrow was hypercellular, with overall cellularity 75%, but focally packed in some areas up to 100%. There was significant megakaryocytic hyperplasia and megakaryocyte dyspoiesis. There was also evidence of dyserythropoiesis and granulocytes were noted to be hypogranular. Blasts were estimated at 2%. The chromosome analysis was normal and the FISH panel for MDS was negative. 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 Her calculated IPSS-R score was still in the low risk category at 2.5. With the worsening anemia, she definitely needed to start treatment. As her IPSS-R score was still in the low risk category, I opted to give her a trial of therapy with Revlimid and to then proceed to a demethylating agent, as necessary. We had some difficulty getting insurance approval for the Revlimid, but she eventually did start treatment on 06/07/2015 at a dose of 10 mg daily. Unfortunately, within a week she developed a bad rash and itching, severe enough that she did have to stop the medication on 06/16/2015. She subsequently started a trial of therapy with decitabine, with cycle 1 day 1 on 06/26/2015. She was able to tolerate it without any significant acute toxicity. Following her 1st cycle of decitabine she had developed persistent, severe granulocytopenia, which was not unexpected. She remained afebrile on antibiotic prophylaxis with Levaquin. She continued to require transfusions of PRBC at least every week, and she also did require a platelet pheresis. At day 29 her her granulocyte count was still only 100, and I did opt to give her a treatment delay. However, she did start cycle 2 as of 07/31/2015, with a CBC at that point showing hemoglobin at 8.1 g, white blood cell count 1300 with ANC 400, and platelet count 66,000. During subsequent follow-up, her ANC again dropped to 100, though she remained afebrile on antibiotic prophylaxis. She continued to require transfusions of packed red blood cells. Her platelet counts remained moderately decreased, but adequate. At cycle 2 day 29, there was no indication of improvement in her blood counts. She underwent bone marrow aspiration/biopsy on 09/06/2015. Interpretation was somewhat limited, as it was a dry tap. Cellularity was 30%. Megakaryocytes were noted to be increased with dyspoietic changes. The most significant change was the development of significant fibrosis, with strongly positive reticulin stain and strongly positive trichrome stain. With those findings, I recommended stopping the decitabine. She did consent to going to [facility] for a second opinion evaluation. She was seen at [facility] yesterday by Dr. Jennifer Quinn. Unfortunately, with her low blood counts, her further treatment options appear to be very limited. In particular, with the low platelet count she was not eligible for treatment with ruxolitinib. She did recommend that we consider repeating bone marrow aspiration/biopsy to reassess for possible leukemic transformation. During subsequent follow-up she was admitted several times with symptoms of diverticulitis. The episodes all resolved with antibiotic therapy and other conservative measures. A repeat MRI of the right hip on 06/06/2016 showed significant improvement in the marrow fatty replacement of the proximal femurs compared to the previous study in September 2015. There was significant abnormal marrow signal in the right femoral head. There was progression in the mild destructive and degenerative changes involving the right hip joint and there was mild progression of enhancement involving the acetabulum and synovium of the right hip, possibly related to progression of myelodysplastic disease. For a period of time she had shown some evidence of spontaneous recovery of her blood counts. She had still been requiring transfusion, but less frequently. There was significant improvement in her platelet count and in her granulocyte count. Following her visit in December 2016 she was given a prescription to start treatment with Exjade for the iron overload. After some delay she eventually did start taking it, but she stopped it within a short time because she felt she was getting too many phone calls about it. I had seen her for a follow-up visit on 12/26/2017. At that point she appeared significantly weaker and more short of breath. She had jugular venous distention. Clinically I had suspected that she was in heart failure, presumably from the iron overload, and I did have her start diuretic therapy. Echocardiogram showed adequate left ventricular ejection fraction of 55%, there was grade 2 diastolic dysfunction with moderately elevated filling pressures and there was moderately increased left atrial size. There was just mild mitral valve regurgitation and mild aortic valve stenosis. Her CT abdomen/pelvis showed increased cardiomegaly compared to previous study in February 2017, consistent with progressive cardiomyopathy. There was decreased attenuation of the periportal soft tissues suggestive of mild periportal fibrosis. There was evidence of axial skeletal osteosclerosis. She required admission to the hospital on 04/11/2018 for acute diastolic heart failure. She was discharged the following day, but on 04/13/2018 she returned to the emergency room for syncope in association with profound bradycardia. She was then admitted to [facility] in [place] where she underwent placement of permanent pacemaker. Following that admission she had temporary prison placement for physical therapy/rehabilitation, and she eventually was able to get placed in [facility] for assisted living. During this time, she remained transfusion dependent. Her other medical illnesses include hypertension, hypercholesterolemia, and GERD. She has stage III chronic kidney disease. She also has a history of hyperthyroidism and history of depression. She underwent laparoscopic cholecystectomy in August 2012. She had upper GI endoscopy and colonoscopy prior to that procedure. In January 2013 she underwent repair of a ventral hernia which developed following the cholecystectomy. Prior surgeries have been limited to partial thyroidectomy for goiter in 1990 and removal of a skin cancer from the nose in 1999. She does not smoke or drink alcohol. Family history significant in that a brother was treated for renal cell cancer. INTERIM HISTORY: Following admission to [facility], she had continued decline in her performance status, in part due to her anemia and cardiac issues and in part due to progressive worsening of her right hip joint pain. The pain became severe enough that eventually did have her evaluated by Dr. Pina for possible palliative surgery/hip replacement. CT of the right hip on 02/09/2019 did confirm progressive severe degenerative arthritic changes of the right hip joint. Ultimately she was offered the option of undergoing hip replacement, but she then opted against surgery. During followup she has continued symptomatic/supporitve care. She has remained transfusion dependent. She is seen for a followup visit. She has not been feeling good. Her main complaint is that her right hip pain continues to get worse despite having pain medication, including an increased dosage on her fentanyl patch and hydrocodone/APAP as needed. She says the pain gets bad enough that she can hardly bear it. She does have some increase in her energy with blood transfusion, but her activity remains very limited. ECOG score is 3. Her appetite is good enough, though not as good as it used to be. She has not had fever or night sweats. She says her breathing has been pretty good lately. She has not had cough and she does not complain of chest pain. She has no GI complaints. She does have frequent urination and she has urgency/incontinence. She does not complain of headache or dizziness. She has some numbness/tingling in her feet, and she complains that her hands and arms cramp up. She also complains that her memory is getting worse. Medications: Arctic Relief Pain Relieving 1 (4 %) Gel (jelly) Topical four times a day PRN, Bumex 1 (2 mg) Tablet Oral daily, Duragesic-25 1 Patch(es) (of 50 mcg/hr) Patch 72 Hr Transdermal q 72 hours, Escitalopram Oxalate 1 Tablet (of 20 mg) Oral daily, Fleet Enema Enema Rectal PRN, Hydrocodone-Acetaminophen 1 Tablet (of 10-325 mg) Oral four times a day PRN, lacri-lube opthalmic 1 Ointment q 3 hours PRN, Loratadine 1 Capsule (of 10 mg) Oral daily, Milk of Magnesia 1 (400 mg/5mL) Suspension Oral PRN, Ondansetron 1 - 2 Tablet (of 4 mg) Oral q 8 hours, raNITIdine HCl 1 (150 mg) Capsule Oral b.i.d., Requip 1 Tablet (of 0.25 mg) Oral at bedtime, Saline 2 [place](s) (of 0.65 %) Solution Nasal four times a day PRN, Soothe Solution Ophthalmic PRN, Tums Tablet, chewable Oral PRN Allergies: Amoxicillin, Codeine Sulfate, contrast dye, Lenalidoide , and Revlimid. Review of Systems: Constitutional - Her energy is a little better after her blood transfusions, but her activity remains very limited. She is mainly sedentary. Her appetite is good enough, but not as good as it used to be. No fever, chills, hot flashes, or night sweats. ECOG score is 3, ENMT - No sinus congestion/drainage. She has a bad tooth. No sore throat or difficulty swallowing, Hematologic/Lymphatic - She has some bruising, Respiratory - Her breathing is pretty good. No cough. No pleuritic pain or hemoptysis, Cardiovascular - No angina pain. No palpitations, Gastrointestinal - No nausea or vomiting. No heartburn or acid reflux. No diarrhea or constipation. No blood in the stool or black stools, Genitourinary (F) - No dysuria or hematuria. She has urinary frequency with urgency and incontinence, Musculoskeletal - She has pain in her right hip, which has continued to get worse, Integumentary - No skin complications, Neurologic - No headache or dizziness. She has occasional numbness and tingling in her feet. She also complains that her hands and arms cramp up, Psychiatric - She has some depression, but not as bad. She usually sleeps OK. Vital Signs: Blood pressure 130/55, pulse 71, respirations 18, temp 99.7 degrees, oxygen saturation 95%. Physical Examination: Constitutional - She appears generally weak, Eyes - Sclerae nonicteric. Conjunctivae clear, ENMT - She has a few remaining teeth which are in poor repair. There are no other lesions noted in the oral cavity, Hematologic/Lymphatic - No cervical, clavicular, or axillary adenopathy, Respiratory - Lungs sound clear, Cardiovascular - Heart rhythm is regular. There is a III/ systolic murmur. There is no gallop or rub noted, Abdomen - Mildly distended and firm. Liver appears to be significantly enlarged. Spleen is not palpable. There is no abdominal mass or ascites noted and there is no inguinal adenopathy, Extremities - There is mild lower extremity edema. She has scattered purpuric lesions, Integumentary - No skin eruption, Neurologic - No focal neurologic deficits noted. Lab/Imaging: Test performed on Aug 30, 2019 04:00 LDH (Total) 149 U/L Sodium 132 mmol/L T4, Free 1.38 ng/dL TSH 0.04 uIU/mL Potassium 4.7 mmol/L Chloride 98 mmol/L CO2 27 mmol/L Anion Gap 11.7 BUN 39 mg/dL Creatinine 1.2 mg/dL Cr Clearance (Est) 44.2900 mL/min Glucose 85 mg/dL Calcium 8.6 mg/dL Protein, Total 6.2 g/dL Albumin 3.1 g/dL Globulin 3.1 g/dL Bilirubin, Total 1.4 mg/dL ALT (SGPT) 23 U/L AST (SGOT) 22 U/L Alkaline Phosphatase 110 IU/L WBC 0.6 10 3/uL RBC 2.65 10 6/uL HGB 7.6 g/dL HCT 24.3 % MCV 91.7 fL MCH 28.7 pg MCHC 31.3 g/dL RDW 13.1 % Platelet Count 33 10 3/cmm Neutrophils 0.1 10 3/uL Lymphocytes 0.4 10 3/uL Monocytes 0.1 10 3/uL Eosinophils 0.0 10 3/uL Basophils 0.0 10 3/uL Neutrophil % 20.3 % Lymphocyte % 69.5 % Monocyte % 8.5 % Eosinophil % 0.0 % Basophils % 0.0 % CBC Slide Review Slide Review Perform SLIDE REVIEW AGREES WITH AUTOMATED RESULTS ST Impression: 1. Patient with moderately severe anemia along with a mildly decreased white blood cell count and a mildly increased platelet count. The initial bone marrow findings in February 2011 were consistent with myelodysplasia. She opted not to attempt any treatment, as she really had not been all that symptomatic. 2. In December 2014 she had a significant increase in her platelet count and her LDH level also increased significantly. She then had a drop in her hemoglobin/hematocrit levels. A JAK2 gene mutation study was positive for the JAK2 V617F mutation. Along with the changes in her blood count, she had a significant decline in her performance status, and she also became transfusion dependent. 3. Repeat bone marrow aspiration/biopsy on 04/05/2015 continued to show findings consistent with myeloproliferative disease/myelodysplasia, though with no identifiable cytogenetic changes. Her calculated IPSS-R score was 2.5, low risk category. 4. A trial of Revlimid at 10 mg daily was initiated on 06/07/2015. Treatment was stopped as of 06/16/2015 due to multiple side effects, most significantly a skin eruption. 5. She then started treatment with decitabine, cycle 1 day 1 on 06/26/2015. She subsequently developed severe, persistent granulocytopenia, and she also remained transfusion dependent. 6. She received a second cycle of decitabine starting 07/31/2015. During subsequent follow-up she has had no evidence of response, as she has continued to have severe granulocytopenia and moderately severe thrombocytopenia, and she remained transfusion dependent. 7. She had repeat bone marrow aspiration/biopsy on 09/06/2015. Interpretation was somewhat limited, as it was a dry tap. Cellularity was 30%. Megakaryocytes were noted to be increased with dyspoietic changes. The most significant change was the development of significant fibrosis, with strongly positive reticulin stain and strongly positive trichrome stain. 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 Due to her low platelet count it was felt that she was not appropriate for treatment with ruxolitinib. 8. She had ongoing complaint of fairly severe pain in the right leg, from the groin down to the knee. MRI of the right hip showed findings which appeared most consistent with severe degenerative arthritis. 9. She has had several hospital admissions for symptoms of diverticulitis. These have resolved with conservative management. 10. She had evidence of transfusion associated iron overload, but she declined to treatment for it. 11. She has CT evidence of gradually enlarging goiter with extension into the mediastinum. In November 2017 she had presented to the emergency room with fullness in her throat and difficulty swallowing. She was also having shortness of breath and cough. In addition, during the preceding month she had developed increasing lower extremity edema. By clinical evaluation she appeared to be in heart failure, and a subsequent echocardiogram did show evidence of grade [address] abdomen/pelvis showed increasing cardiomegaly since February 2017, consistent with progressive cardiomyopathy. There were also findings in the liver suggestive of periportal fibrosis. 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 In March 2018 she required admission to the hospital for acute diastolic congestive heart failure, and she then required placement of permanent pacemaker for syncope in association with profound bradycardia. During subsequent follow-up she continued to require transfusion on a regular basis, and there was a continued gradual decline in her performance status. She eventually was admitted to [facility] for assisted living. Initially she did show some improvement in her quality of life. However, it has since then been declining, in large part due to the worsening pain in the right hip. She was evaluated by Dr. Pina, and she was offered the option of undergoing palliative hip replacement, but she ultimately opted against surgery. During followup she has continued on symptomatic/supportive care. She has remained transfusion dependent. She continues to have fairly marginal performance status, but her main complaint is that the right hip pain is continued to worsen even with her current opiate pain regimen. Plan: At the present time she desires to continue transfusion support, so her blood counts will be monitored weekly and she will be transfused PRBC as indicated. Her fentanyl dosage will now be increased to 100 mcg/h and her breakthrough pain medication will be changed to immediate release oxycodone 15 mg. I did have a discussion with her regarding a healthcare directive, and she is undecided about those issues, which she does not fully comprehend. Her overall prognosis, though, is poor. Signed By: Martin Chavez M.D. <<Signature on File>>
[2019-09-06 09:21] LABS: Basophils % 1.3 %; Hematocrit 27.5 % (37.0-47.0); Hemoglobin 8.6 g/dL (11.5-15.3); Lymphocytes # 0.5 10^3/uL (0.8-4.8); Lymphocytes % 67.5 %; Mean Corpuscular HGB Conc 31.3 g/dL (30.0-36.0); Mean Corpuscular Hemoglobin 29.2 pg (28.0-34.0); Mean Corpuscular Volume 93.2 fL (81-99); Neutrophils % 24.9 %; Nucleated Red Blood Cells % 0 %; Platelet Count 36 10^3/cmm (130-400); Red Blood Count 2.95 10^6/uL (4.1-5.3); Red Cell Distribution Width 13.2 % (12.1-15.1)
[2019-09-06 09:30] LABS: Neutrophils # 0.2 10^3/uL (1.8-7.7); White Blood Count 0.8 10^3/uL (4.0-10.0)
[2019-09-13 08:44] LABS: Basophils % 0.8 %; Hematocrit 24.2 % (37.0-47.0); Hemoglobin 7.6 g/dL (11.5-15.3); Lymphocytes # 0.6 10^3/uL (0.8-4.8); Lymphocytes % 49.6 %; Mean Corpuscular HGB Conc 31.4 g/dL (30.0-36.0); Mean Corpuscular Hemoglobin 28.4 pg (28.0-34.0); Mean Corpuscular Volume 90.3 fL (81-99); Monocytes # 0.1 10^3/uL (0.2-0.9); Neutrophils % 39.6 %; Nucleated Red Blood Cells % 0 %; Platelet Count 61 10^3/cmm (130-400); Red Blood Count 2.68 10^6/uL (4.1-5.3); White Blood Count 1.2 10^3/uL (4.0-10.0)
[2019-09-13 09:26] LABS: Neutrophils # 0.5 10^3/uL (1.8-7.7); Slide Review Slide Review Perform
[2019-09-14] VITALS (10 sets, daily range): BP systolic 100–144; BP diastolic 46–69; PULSE 70–95; RESP 16–18; TEMP 36.2–37.1
[2019-09-14] MEDS: acetaminophen 325 mg Tablet 650 MG PO (10:22)
[2019-09-14] MEDS: diphenhydrAMINE 25 mg Capsule PO (10:22)
[2019-09-14] MEDS: sodium chloride 0.9% 250 ML 50 ML IV (10:40)
[2019-09-14] MEDS: FUROsemide 10 mg/mL SDV 2mL 20 MG IV (12:37)
== END 2019-09-13 23:59 | disposition home or self-care (01) ==
LOC: ONCMED 05:30
PROVIDERS: Family Provider Family Medicine; PCP Family Medicine; Visit Provider Internal Medicine Medical Oncology
DX: D46.Z Other myelodysplastic syndromes (principal); M25.551 Pain in right hip; E05.90 Thyrotoxicosis, unspecified without thyrotoxic crisis or storm; E83.111 Hemochromatosis due to repeated red blood cell transfusions; E04.9 Nontoxic goiter, unspecified; Z95.0 Presence of cardiac pacemaker; Z79.891 Long term (current) use of opiate analgesic
CPT/HCPCS: 36430; 80053; 83615; 84439; 84443; 85025; 86850; 86900; 86920; 96372; 99214; J1170; J1940; J7050; P9040

== ENCOUNTER 2019-09-18 20:01 | Inpatient (IN) | payer MEDICARE, MEDICAID, SELFPAY ==
[2019-09-18 20:16] VITALS: BP 163/64; PULSE 72; RESP 18; TEMP 37.3; O2SAT 98; BMI 29.1
--- NOTE | 2019-09-18 20:43 | XRR_ITS ---
PROCEDURE INFORMATION: Exam: XR Chest, 1 View Exam date and time: 09/18/2019 9:39 PM Age: 79 years old Clinical indication: Other: Weakness TECHNIQUE: Imaging protocol: XR of the chest Views: 1 view. COMPARISON: [place] Chest 1 [place] [id number] 04/12/2019 12:00 PM FINDINGS: Lungs: Lungs are clear. Pleural space: There is no pleural effusion or pneumothorax. Heart/Mediastinum: The cardiac silhouette is within normal limits of size given AP technique. Bones/joints: Bones Other findings: There is there is a stable substernal mass with rightward tracheal displacement, unchanged since 04/12/2019. XR/XR chest 1V portable [id number] IMPRESSION: 1. No acute findings. 2. 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
--- NOTE | 2019-09-18 20:44 | ED_ITS ---
HPI - Weakness General: Chief complaint: Weakness Stated complaint: NEEDS BLOOD TRANSFUSION/ WEAKNESS Time Seen by Provider: 09/18/19 20:40 History of Present Illness: HPI Narrative: 79-year-old female evidently with a myelodysplastic disorder who presents with generalized weakness. She states that she usually has to have a transfusion every week to 2 weeks. She has not had one in 2 weeks. She is afraid that this is the problem. He also complains of chronic right hip pain. MD Complaint: generalized weakness Onset (ago): day(s) Duration: constant Location: generalized Migration: none Severity: similar to previous episodes Relieving factors: none Exacerbating factors: exertion Context: history of similar Associated symptoms: Reports myalgias; Denies chest pain, chills, dysuria, fever(s), headache(s), nausea or vomiting Review of Systems Const: Denies: fever or chills Eyes: Denies: change in vision or blurry vision ENMT: Denies: painful swallowing or facial/sinus pain Card: Denies: chest pain, palpitations, irregular heart rhythm or edema Resp: Denies: shortness of breath, productive cough, non-productive cough or wheezing GI: Denies: abdominal pain, nausea or vomiting : Reports: urinary frequency and urinary urgency; Denies: painful urination or blood in urine Musc: Denies: redness or joint warmth Skin/Breast: Denies: rash, itching or redness Neuro: Denies: headache or dizziness Psych: Denies: anxiety PFSH ED PFSH: Social History Smoking and tobacco status: former smoker Physical Exam Const: GENERAL APPEARANCE: well developed ORIENTATION/CONSCIOUSNESS: Yes oriented to person and Yes oriented to place HENMT: COMMON NORMALS: external ears normal and external nose normal NOSE: external nose normal and no nasal discharge EXTERNAL EAR: Yes external ears normal TEETH & GINGIVA: no abnormal tooth and associated gingiva THROAT: posterior oropharynx normal; no peritonsillar mass Eye: COMMON NORMALS: PERRL, EOMs intact bilaterally and conjunctivae normal EYELID: eyelids normal CONJUNCTIVA: Yes conjunctivae normal PUPIL: Yes PERRL Neck/C-Spine: COMMON NORMALS: full ROM GENERAL: No tracheal deviation CERVICAL SPINE: Yes normal cervical lordosis and No cervical spine tenderness Chest: COMMONS NORMALS: inspection of chest normal CHEST: No tenderness Resp: COMMON NORMALS: clear to auscultation bilaterally EFFORT & INSPECTION: No tachypneic, No respiratory distress, No retractions, No uses accessory muscles and No tracheal deviation AUSCULTATION: clear to auscultation bilaterally, no rhonchi, no wheezes and lung sounds not diminished Cardio: COMMON NORMALS: regular rate and regular rhythm RATE: regular rate RHYTHM: regular rhythm HEART SOUNDS: no murmurs PERIPHERAL PULSES: radial pulses present GI: INSPECTION: No abdominal distension AUSCULTATION: No hyperactive bowel sounds and No hypoactive bowel sounds PALPATION: No guarding and No rigid PERCUSSION: no dullness to percussion and no tympanic to percussion Neuro: SENSORIUM/ORIENTATION: Yes oriented to person and Yes oriented to place Psych: COMMON NORMALS: mental status grossly normal Skin: COMMON NORMALS: no rashes or lesions noted GENERAL SKIN EXAM: no rashes or lesions noted Course Vital Signs: Vital signs: Vital Signs Temperature 98.6 F 09/19/19 02:33 Pulse Rate 73 09/19/19 02:33 Respiratory Rate 18 09/19/19 02:33 Blood Pressure 167/56 09/19/19 02:33 Pulse Oximetry 99 09/19/19 00:46 MDM - Weakness MDM Narrative: Medical decision making narrative: 79-year-old female with a history of myelodysplastic disorder. She presents with generalized weakness. She also has right-sided hip pain. She denies feeling ill otherwise, or having fevers or chills. Her white blood cell count is 0.7. Her ANC is 100. Her hemoglobin is 7.3. She will be transfused 2 units. Her temperature, was elevated on arrival. She has no definite focus of infection, but since she is neutropenic, she will be covered with antibiotics empirically. She will be observed in the hospital. Lab Data: Labs: Lab Results 09/18/19 09/18/19 09/18/19 Range/Units 20:47 20:47 20:47 WBC 0.7 L* (4.0-10.0) 10^3/ uL RBC 2.56 L (4.1-5.3) 10^6/u L Hgb 7.3 L (11.5-15.3) g/dL Hct 22.9 L (37.0-47.0) % MCV 89.5 (81-99) fL MCH 28.5 (28.0-34.0) pg MCHC 31.9 (30.0-36.0) g/dL RDW 13.2 (12.1-15.1) % Plt Count 30 L (130-400) 10^3/c mm Neut % (Auto) 21.6 % Lymph % (Auto) 63.1 % Mclean % (Auto) 9.2 % Eos % (Auto) 0.0 % Baso % (Auto) 1.5 % Neut # (Auto) 0.1 L* (1.8-7.7) 10^3/u L Lymph # (Auto) 0.4 L (0.8-4.8) 10^3/u L Mclean # (Auto) 0.1 L (0.2-0.9) 10^3/u L Eos # (Auto) 0.0 (0.0-0.8) 10^3/u L Baso # (Auto) 0.0 (0.0-0.1) 10^3/u L Nucleated RBC % (a uto) 0 % Nucleated RBCs # 0.0 /100WBC PT 16.40 H (10.5-13.3) SECO NDS INR 1.28 H (0.8-1.2) APTT 37.5 H (23.9-36.7) SECO NDS Sodium 133 L (136-145) mmol/L Potassium 4.5 (3.5-5.1) mmol/L Chloride 98 (98-107) mmol/L Carbon Dioxide 27 (22-29) mmol/L Anion Gap 12.5 (5-19) BUN 35 H (8-23) mg/dL Creatinine 1.4 H (0.5-0.9) mg/dL Glucose 103 (65-115) mg/dL Calculated Osmolal ity 274 L (285-295) mOsm/k g Lactate (0.5-2.2) mmol/L Calcium 8.5 (8.5-10.5) mg/dL Total Bilirubin 1.2 (0.15-1.2) mg/dL AST 21 (0-32) U/L ALT 19 (0-33) U/L Alkaline Phosphata se 137 H (35-105) IU/L C-Reactive Protein 9.0 H (0.0-4.9) mg/L Total Protein 6.2 L (6.6-8.7) g/dL Albumin 3.3 L (3.5-5.2) g/dL Globulin 2.9 (1.3-4.6) g/dL Urine Color (Yellow) Urine Appearance (CLEAR) Urine pH (5-7) Ur Specific Gravit y (1.005-1.030) Urine Protein (Negative) Urine Glucose (UA) (Normal) Urine Ketones (Negative) Urine Blood (Negative) Urine Nitrate (Negative) Urine Bilirubin (NEGATIVE) Prot Sulfosalicyli c Acd (Negative) Urine Urobilinogen (Negative) mg/dL Ur Leukocyte Katia ase (Negative) Blood Type Rho(D) Type Antibody Screen Crossmatch 09/18/19 09/18/19 09/18/19 Range/Units 20:47 20:47 21:15 WBC (4.0-10.0) 10^3/ uL RBC (4.1-5.3) 10^6/u L Hgb (11.5-15.3) g/dL Hct (37.0-47.0) % MCV (81-99) fL MCH (28.0-34.0) pg MCHC (30.0-36.0) g/dL RDW (12.1-15.1) % Plt Count (130-400) 10^3/c mm Neut % (Auto) % Lymph % (Auto) % Mclean % (Auto) % Eos % (Auto) % Baso % (Auto) % Neut # (Auto) (1.8-7.7) 10^3/u L Lymph # (Auto) (0.8-4.8) 10^3/u L Mclean # (Auto) (0.2-0.9) 10^3/u L Eos # (Auto) (0.0-0.8) 10^3/u L Baso # (Auto) (0.0-0.1) 10^3/u L Nucleated RBC % (a uto) % Nucleated RBCs # /100WBC PT (10.5-13.3) SECO NDS INR (0.8-1.2) APTT (23.9-36.7) SECO NDS Sodium (136-145) mmol/L Potassium (3.5-5.1) mmol/L Chloride (98-107) mmol/L Carbon Dioxide (22-29) mmol/L Anion Gap (5-19) BUN (8-23) mg/dL Creatinine (0.5-0.9) mg/dL Glucose (65-115) mg/dL Calculated Osmolal ity (285-295) mOsm/k g Lactate 0.6 (0.5-2.2) mmol/L Calcium (8.5-10.5) mg/dL Total Bilirubin (0.15-1.2) mg/dL AST (0-32) U/L ALT (0-33) U/L Alkaline Phosphata se (35-105) IU/L C-Reactive Protein (0.0-4.9) mg/L Total Protein (6.6-8.7) g/dL Albumin (3.5-5.2) g/dL Globulin (1.3-4.6) g/dL Urine Color Yellow (Yellow) Urine Appearance Clear (CLEAR) Urine pH 8 H (5-7) Ur Specific Gravit y 1.010 (1.005-1.030) Urine Protein Neg (Negative) Urine Glucose (UA) Norm (Normal) Urine Ketones Negative (Negative) Urine Blood Neg (Negative) Urine Nitrate Negative (Negative) Urine Bilirubin Neg (NEGATIVE) Prot Sulfosalicyli c Acd Negative (Negative) Urine Urobilinogen 1 H (Negative) mg/dL Ur Leukocyte Katia ase Negative (Negative) Blood Type O Positive Rho(D) Type Positive Antibody Screen Negative Crossmatch See Detail Discharge Plan Discharge Patient Disposition: Placed in Observation Admit Provider: Bela Vaz Clinical Impression: Anemia Qualifiers: Anemia type: bone marrow failure Bone marrow failure anemia type: pancytopenia, other Qualified Code(s): D61.818 - Other pancytopenia Condition: Stable Discharge Date/Time: 09/19/19 02:40 Coding Level of Care Code 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
--- NOTE | 2019-09-18 20:44 | ECG_ITS ---
Measurements Intervals [place] Rate: 72 P: 62 AL: 252 QRS: 22 QRSD: 104 T: 40 QT: 406 QTc: 444 SINUS RHYTHM WITH FIRST DEGREE AV BLOCK Compared to ECG 04/12/2019 23:15:56 No significant changes Electronically Signed On 09-19-2019 20:21:37 CDT by Wojciech Valdivia M.D. [email or web address]
[2019-09-18 21:31] LABS: Add Urine Microscopic? NO
[2019-09-18 21:32] LABS: Basophils % 1.5 %; Hematocrit 22.9 % (37.0-47.0); Hemoglobin 7.3 g/dL (11.5-15.3); Lymphocytes # 0.4 10^3/uL (0.8-4.8); Lymphocytes % 63.1 %; Mean Corpuscular HGB Conc 31.9 g/dL (30.0-36.0); Mean Corpuscular Hemoglobin 28.5 pg (28.0-34.0); Mean Corpuscular Volume 89.5 fL (81-99); Monocytes # 0.1 10^3/uL (0.2-0.9); Monocytes % 9.2 %; Neutrophils % 21.6 %; Nucleated Red Blood Cells % 0 %; Platelet Count 30 10^3/cmm (130-400); Positive M 1; Red Blood Count 2.56 10^6/uL (4.1-5.3); Red Cell Distribution Width 13.2 % (12.1-15.1)
[2019-09-18 21:42] LABS: INR 1.28 (0.8-1.2); Partial Thromboplastin Time 37.5 SECONDS (23.9-36.7)
[2019-09-18 21:46] VITALS: BP 165/70; PULSE 77; RESP 16; O2SAT 100
[2019-09-18 21:50] LABS: Alanine Aminotransferase 19 U/L (0-33); Albumin Level 3.3 g/dL (3.5-5.2); Alkaline Phosphatase 137 IU/L (35-105); Anion Gap 12.5 (5-19); Aspartate Amino Transferase 21 U/L (0-32); Blood Urea Nitrogen 35 mg/dL (8-23); Calcium 8.5 mg/dL (8.5-10.5); Carbon Dioxide 27 mmol/L (22-29); Chloride 98 mmol/L (98-107); Globulin 2.9 g/dL (1.3-4.6); Glucose 103 mg/dL (65-115); Osmolality Calculated 274 mOsm/kg (285-295); Potassium 4.5 mmol/L (3.5-5.1); Sodium 133 mmol/L (136-145); Total Bilirubin 1.2 mg/dL (0.15-1.2); Total Protein 6.2 g/dL (6.6-8.7)
[2019-09-18 21:51] LABS: Lactate (Lactic Acid level) 0.6 mmol/L (0.5-2.2)
[2019-09-18 22:02] LABS: Neutrophils # 0.1 10^3/uL (1.8-7.7); White Blood Count 0.7 10^3/uL (4.0-10.0)
[2019-09-18 22:08] VITALS: RESP 14
[2019-09-18] MEDS: fentaNYL 50 mcg/mL INJ 2mL IVP (22:08)
[2019-09-18] MEDS: ondansetron 2 mg/ML SDV 2 mL 4 MG IVP (22:08)
[2019-09-18 22:12] LABS: Urine Appearance Clear (CLEAR); Urine Color Yellow (Yellow)
[2019-09-18 22:13] LABS: Bilirubin Urine Neg (NEGATIVE); Blood Urine Neg (Negative); Glucose Urine UA Norm (Normal); Ketones Urine Negative (Negative); Leukocyte Esterase Urine Negative (Negative); Nitrate Urine Negative (Negative); Protein Urine Neg (Negative); Sulfosalicylic Acid Urine Negative (Negative); Urobilinogen Urine 1 mg/dL (Negative); pH Urine 8 (5-7)
[2019-09-19] VITALS (14 sets, daily range): BP systolic 149–196; BP diastolic 56–89; PULSE 70–110; RESP 16–20; TEMP 36.3–37.1; O2SAT 96–99
[2019-09-19] MEDS: morphine 4 mg/mL SDV 1 mL IVP (01:10)
[2019-09-19] MEDS: levoFLOXacin 750 mg Tablet PO (01:11)
--- NOTE | 2019-09-19 01:48 | PM.HP ---
Providers/Chief Complaint Admitting Physician: Bela Vaz MD Primary Care Provider: Tiff Lafleur MD Chief Complaint: NEEDS BLOOD TRANSFUSION/ WEAKNESS History of Present Illness Radha Boyd is a 79 year old female who presented to the emergency room stating that she needed some blood. She also complained of being more and more weak lately. She has transfusion dependent myelodysplasia with myelofibrosis. Has had chronic issues with neutropenia and thrombocytopenia as well. She has not responded to various treatments. She gets weekly blood transfusions. It looks like her last transfusion was on September 13. She felt too weak and short of breath to make it until Friday. Hemoglobin was at 7.3. She is being admitted for transfusion given her symptoms. In addition to the shortness of breath and weakness, she complains of pain. She saw Dr. Chavez earlier this month and he increased her fentanyl patch to 100 mcg. She cannot tell me when it was last placed nor where it is on her body. Looking at facility medication records, it looks like she has been on only 75 mcg. At this point in time I do not know if her dose was not increased to 100 or if it was taken back down to [address] Chavez on August 30 and the JUL list the date of the fentanyl patch as August 22. Patient is not able to localize the pain to a new area. It is primarily located in the right hip. She does not report any fevers. She not had any night sweats. Denies productive cough. No painful urination. No diarrhea. Review of Systems Const: Reports: fatigue and malaise; Denies: fever ENMT: Denies: throat pain Card: Denies: chest pain Resp: Reports: shortness of breath GI: Reports: other (Reports eating okay); Denies: vomiting or diarrhea : Reports: urinary frequency and urinary incontinence; Denies: painful urination Musc: Reports: extremity pain (Severe); Denies: joint swelling or redness Skin/Breast: Denies: itching Neuro: Reports: numbness in extremities and weakness in extremities Psych: Reports: anxiety Medications/Allergies Allergies Allergy/AdvReac Type Severity Reaction Status Date / Time No Known Drug Allergies Allergy Unknown Verified 09/18/19 20:23 PFSH Acute PFSH: Medical History (Updated 09/19/19 @ 08:15 by Bela Vaz MD) Chronic kidney disease, stage III (moderate) GERD (gastroesophageal reflux disease) Hyperlipidemia Hypertension Hyperthyroidism Myelodysplastic syndrome Transfusion dependent, 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, associated with neutropenia and thrombocytopenia Skin cancer of nose Removed Surgical History (Updated 09/19/19 @ 08:07 by Bela Vaz MD) History of cholecystectomy History of partial thyroidectomy History of ventral hernia repair Family History (Updated 09/19/19 @ 08:08 by Bela Vaz MD) Brother Cancer Social History Smoking and tobacco status: former smoker Vitals/I&O/Wt Last Vital Signs Temp 99.2 F 09/18/19 20:16 Pulse 77 09/18/19 21:46 Resp 14 09/18/19 22:08 BP 165/70 09/18/19 21:46 Pulse Ox 100 09/18/19 21:46 Weight last 48 hrs Weight 79.379 kg Physical Exam Const: COMMON NORMALS: oriented x3 and alert HENMT: COMMON NORMALS: normocephalic, head/scalp atraumatic and moist oral mucous membranes TEETH & GINGIVA: Yes fair dentition Eye: COMMON NORMALS: PERRL and EOMs intact bilaterally Neck/C-Spine: COMMON NORMALS: supple Resp: COMMON NORMALS: normal respiratory effort, no use of accessory muscles and clear to auscultation bilaterally Cardio: COMMON NORMALS: regular rate and regular rhythm GI: COMMON NORMALS: soft to palpation and non-tender AUSCULTATION: Yes normoactive bowel sounds Extremity: COMMON NORMALS: normal capillary refill GENERAL: No edema Neuro: COMMON NORMALS: oriented x3, moves all extremities and no sensory deficits noted SENSORIUM/ORIENTATION: Yes alert Psych: OTHER: Patient is generally cooperative but but determined, as she should be, to make her own decisions regardless of what others might think Skin: NARRATIVE SKIN EXAM: Patient has a bronze appearance to her skin. Skin is dry. She has some small ecchymoses and a few scratches. Data : 09/18/19 20:47 09/18/19 20:47 Micro: Microbiology 09/18/19 22:30 Blood Culture - Preliminary Blood SPECIMEN COLLECTED 09/18/19 22:25 Blood Culture - Preliminary Blood SPECIMEN COLLECTED A&P Assessment and plan (1) Anemia: With neutropenia and thrombocytopenia. Secondary to myelodysplastic syndrome with myelofibrosis. Currently symptomatic with increased shortness of breath and malaise Status: Acute Qualifiers: Anemia type: bone marrow failure Bone marrow failure anemia type: pancytopenia, other Qualified Code(s): D61.818 - Other pancytopenia (2) Myelodysplastic syndrome: Follows with Dr. Chavez, transfusion dependent. No longer a candidate for most if any therapies otherwise. Status: Chronic (3) Chronic right hip pain: Has had some changes in pain medications lately. Not knowing her is hard to discern if the pain is worse than usual. It has been quite severe per her descriptions. She was offered palliative surgery but ultimately declined. Status: Chronic (4) Hypertension: I am sure currently exacerbated by pain Status: Chronic Qualifiers: Hypertension type: essential hypertension Qualified Code(s): I10 - Essential (primary) hypertension (5) Chronic kidney disease, stage III (moderate): Probably near baseline Status: Acute Additional A&P Information Observation admission Patient is to receive transfusion CBC posttransfusion I have asked nurses to also search for a fentanyl patch, which I am not able to personally find. That may be part of why the pain is more severe if it is no longer on her. We will order oral medications for breakthrough pain Need to clarify between Dr. Chavez's most recent visit note and [facility] what pain medication patient is actually supposed to be on as we may be able to make adjustments to medications to help her pain control better Keep in isolation secondary to neutropenia with low absolute neutrophil count Low volume IV fluids tonight Supportive care otherwise No pharmacological DVT prophylaxis secondary to thrombocytopenia Full code. I cannot find paperwork or get a clear answer from her regarding advanced directives [facility] Necessity Statement*: Currently anticipated stay less than 2 midnights and transfusion dependent patient presenting with shortness of breath and malaise suggestive of symptomatic anemia. She also complains of chronic hip pain that is not well controlled presently. Coding Level of Care Code Acute House Wire[employer] Hel[employer] for [employer] Spann Diagnoses Anemia D61.818 Anemia type: bone marrow failure Bone marrow failure anemia type: pancytopenia, other Myelodysplastic syndrome D46.9 Chronic right hip pain M25.551; G89.29 Hypertension I10 Hypertension type: essential hypertension Chronic kidney disease, stage III (moderate) N18.3
[2019-09-19] MEDS: HYDROcodone-acetaminophen 10-325 mg Tablet 1 TAB PO ×2 (03:48→07:33)
[2019-09-19] MEDS: sodium chloride 0.9% 1,000 ML 75 ML IV (04:29)
[2019-09-19 09:21] LABS: Hematocrit 25.3 % (37.0-47.0); Hemoglobin 8.2 g/dL (11.5-15.3); Mean Corpuscular HGB Conc 32.4 g/dL (30.0-36.0); Mean Corpuscular Hemoglobin 28.8 pg (28.0-34.0); Mean Corpuscular Volume 88.8 fL (81-99); Platelet Count 35 10^3/cmm (130-400); Red Blood Count 2.85 10^6/uL (4.1-5.3); Red Cell Distribution Width 12.9 % (12.1-15.1)
[2019-09-19 09:40] LABS: White Blood Count 0.6 10^3/uL (4.0-10.0)
[2019-09-19 09:49] LABS: Total Cells Counted 50 (0-100)
[2019-09-19 09:50] LABS: Absolute Segmented Neutrophil 0.2 10/cmm (1.6-7.1); Lymphocytes 60 %; Segmented Neutrophils 36 %; Smudge Cells Trace
[2019-09-19 09:51] LABS: Anisocytosis Trace; Giant Platelets 1+; Platelet Estimate Decreased (Normal); Poikilocytosis 1+
[2019-09-19 09:52] LABS: Lymphocytes Absolute 0.4 10^3/cmm (1.2-3.4)
[2019-09-19 09:58] LABS: Absolute Neutrophil 0.2 10^3/cmm (1.4-6.5)
--- NOTE | 2019-09-19 10:46 | CTR_ITS ---
PROCEDURE INFORMATION: Exam: CT Maxillofacial Without Contrast Exam date and time: 09/19/2019 10:53 AM Age: 79 years old Clinical indication: Mass, lump, or swelling; Mouth; Patient HX: C/O R sided facial/jaw swelling w intermittent pain x 6 weeks; Additional info: Right jaw swelling, R/O jaw abscess TECHNIQUE: Imaging protocol: Computed tomography images of the face without contrast. Total DLP: 711.59 mGy-cm Radiation optimization: All CT scans at this facility use at least one of these dose optimization techniques: automated exposure control; mA and/or kV adjustment per patient size (includes targeted exams where dose is matched to clinical indication); or iterative reconstruction. COMPARISON: CT facial bones wo con* [id number] 04/12/2018 8:19 PM FINDINGS: Orbits: See Bones/joints finding. Bones/joints: Mandible, pterygoid plates, maxilla, skull base, middle ears, paranasal sinuses, zygomatic arches, and orbital taylor normal. Retrobulbar fat and orbits are normal. Nasal fractures likely chronic. severe degenerative changes in the spine most pronounced C4-C5 Sinuses: Normal. No air-fluid levels. 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 No significant perimandibular inflammatory changes. No visualized abscess. Other findings: Poor dentition CT/CT facial bones wo con* [id number] IMPRESSION: 1. 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 2. No significant perimandibular inflammatory changes. No visualized abscess. large soft tissue mass in the neck on the left in the region of the thoracic inlet measuring 4 cm x 3.5 cm. Thyroid in nature. Radiation Dose CTDIVOL = (mGy): DLP = 711.59 (mGy-cm)
[2019-09-19] MEDS: haloperidol inj 5 mg/mL INJ 1 mL 2 MG IM (10:52)
[2019-09-19 11:35] LABS: Procalcitonin 0.25 ng/mL (0-0.5)
[2019-09-19 11:47] LABS: C Reactive Protein 7.2 mg/L (0.0-4.9); Erythrocyte Sedimentation Rate 14 mm/hr (0-15)
[2019-09-19] MEDS: fentaNYL 100 mcg Patch 1 PATCH TRANSDERMA (13:00)
--- NOTE | 2019-09-19 14:06 | PM.PN ---
Subjective Subjective: Interval history: This morning patient had episodes of agitation, confusion, alert oriented x1, she was found wandering the hallways with her purse, stated that she want to leave the hospital, wanted to go see her sister Patient was escorted back to her room, she is alert oriented x1, states that all she needs is a blood transfusion, and she wants to leave the hospital, During my examination, patient does answer questions appropriately such as knowing that she has a bone marrow disorder, she requires blood transfusions on a weekly basis, she sees Dr. Chavez as outpatient, she lives by her self at [facility], she denies a history of falls, no cough, no fevers, but does have right jaw pain related to a molar tooth infection, I was able to get more of the history from [facility], according to nurses there, patient has had a steady decline, has been more and more confused, no falls, no injury, has been on multiple rounds of antibiotics for a molar tooth infection Vitals/I&O/Wt Last Vital Signs Temp 98.1 F 09/19/19 11:40 Pulse 83 09/19/19 11:40 Resp 18 09/19/19 11:40 BP 149/70 09/19/19 11:40 Pulse Ox 97 09/19/19 11:40 09/18/19 09/19/19 09/19/19 22:59 06:59 14:59 Intake Total 570 / 570 120 / 120 Output Total 350 / 350 Balance 220 / 220 120 / 120 Weight last 48 hrs Weight 79.379 kg Physical Exam Const: COMMON NORMALS: no apparent distress and alert ORIENTATION/CONSCIOUSNESS: not oriented to person, not oriented to place and not oriented to time HENMT: COMMON NORMALS: normocephalic HEAD & SCALP: normocephalic Neck/C-Spine: COMMON NORMALS: no JVD Resp: COMMON NORMALS: normal respiratory effort, no retractions, no use of accessory muscles and clear to auscultation bilaterally AUSCULTATION: clear to auscultation bilaterally Cardio: COMMON NORMALS: no JVD, regular rate, regular rhythm, S1 normal heart sound and S2 normal heart sound RATE: regular rate RHYTHM: regular rhythm HEART SOUNDS: S1 normal and S2 normal GI: COMMON NORMALS: normal to inspection, nondistended, normoactive bowel sounds, soft to palpation, non-tender, no hepatosplenomegaly, no masses and no bruits PALPATION: Yes soft and Yes no hepatosplenomegaly Extremity: COMMON NORMALS: normal capillary refill, no clubbing, cyanosis or edema, no calf tenderness and no pedal edema Neuro: SENSORIUM/ORIENTATION: Yes alert, No oriented to person, No oriented to place, No oriented to time and Yes fluctuating sensorium Psych: COMMON NORMALS: mental status grossly normal Data : 09/19/19 09:14 09/18/19 20:47 Micro: Microbiology 09/18/19 22:30 Blood Culture - Preliminary Blood SPECIMEN COLLECTED 09/18/19 22:25 Blood Culture - Preliminary Blood SPECIMEN COLLECTED A&P Assessment and plan (1) Anemia: - Secondary to myelodysplastic syndrome with myelofibrosis -Currently symptomatic with increased shortness of breath and malaise -Status post 1 unit PRBC, hemoglobin up to 8.2 -We will continue to monitor hemoglobin -Patient's myelodysplastic syndrome, 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 Chavez about the case, he states that patient has had a slow decline over the last month, has been more confused, and is been discussing with the patient her goals of care, end-of-life care, hospice, CODE STATUS, however patient would never provide an answer, would always want to discuss with sister before making a decision, but no decision would be made -When patient was more oriented, I had a discussion with patient about her goals of care, patient declined to answer, she stated that she want to talk to her sister before making a decision, wants to continue all interventions, wants to continue to get blood transfusions -I will reach out to patient's sisters to help in decision making, goals of care, CODE STATUS, Status: Acute Qualifiers: Anemia type: bone marrow failure Bone marrow failure anemia type: pancytopenia, other Qualified Code(s): D61.818 - Other pancytopenia (2) Myelodysplastic syndrome: Follows with Dr. Chavez, transfusion dependent. No longer a candidate for most if any therapies otherwise. Status: Chronic (3) Chronic right hip pain: -I spoke to the long term, today's a day that patient's fentanyl patch 100 mcg will be changed , we could not find the fentanyl patch on her -Continue fentanyl 100 mcg once daily -Will obtain medication reconciliation list from [facility] Status: Chronic (4) Hypertension: I am sure currently exacerbated by pain Status: Chronic Qualifiers: Hypertension type: essential hypertension Qualified Code(s): I10 - Essential (primary) hypertension (5) Chronic kidney disease, stage III (moderate): Probably near baseline Status: Acute (6) Neutropenia: Neutropenic precautions, monitor for fevers, Augmentin Levaquin Status: Acute (7) Dental abscess: -Dental abscess of right lower molar, with right jaw swelling, and periodontitis -CT scan of the jaw has no evidence of deep tissue infection, no abscess -But given patient's absolute neutropenia will treat with Augmentin and Levaquin -Clinically monitor Status: Acute (8) AMS (altered mental status): -Agitation and altered mental status multifactorial -Likely related to anemia, some component related to opiate withdrawal, dental infection, dementia -I believe that the underlying source of patient's alteration of her mentation is likely her progressive dementia that has been become more pronounced while she is hospitalized -UA is unremarkable for UTI, chest x-ray unremarkable for pneumonia, she does have a right dental abscess without evidence of deep tissue infection Plan: -Haldol for anxiety, will require one-on-one sitter -I have reached out to patient's sisters to help in decision-making Status: Acute Additional A&P Information Observation admission Patient is to receive transfusion CBC posttransfusion I have asked nurses to also search for a fentanyl patch, which I am not able to personally find. That may be part of why the pain is more severe if it is no longer on her. We will order oral medications for breakthrough pain Need to [facility] what pain medication patient is actually supposed to be on as we may be able to make adjustments to medications to help her pain control better Keep in isolation secondary to neutropenia with low absolute neutrophil count Low volume IV fluids tonight Supportive care otherwise No pharmacological DVT prophylaxis secondary to thrombocytopenia Full code. I cannot find paperwork or get a clear answer from her regarding advanced directives Anticipate disposition back to [facility] Attestations Medical Necessity Statement*: She requires continued hospitalization due to altered mental status, anemia, absolute neutropenia Coding Level of Care Code Acute Risk Control Field Representative for g Fwd Diagnoses Anemia D61.818 Anemia type: bone marrow failure Bone marrow failure anemia type: pancytopenia, other Myelodysplastic syndrome D46.9 Chronic right hip pain M25.551; G89.29 Hypertension I10 Hypertension type: essential hypertension Chronic kidney disease, stage III (moderate) N18.3 Neutropenia D70.9 Dental abscess K04.7 AMS (altered mental status) R41.82
[2019-09-19] MEDS: amoxicillin-clav 500-125 mg Tablet 1 TAB PO ×2 (14:20→20:53)
[2019-09-19] MEDS: LORazepam 2 mg/mL INJ 1 mL 1 MG IVP (14:20)
[2019-09-19] MEDS: ciprofloxacin 500 mg Tablet 750 MG PO (17:20)
[2019-09-19] MEDS: ropinirole 0.25 mg Tablet PO (17:20)
[2019-09-19] MEDS: oxyCODONE 5 mg IR Tab/Cap 10 MG PO ×2 (19:29→23:42)
[2019-09-20] VITALS (8 sets, daily range): BP systolic 160–184; BP diastolic 63–89; PULSE 83–105; RESP 16–18; TEMP 36.6–37.5; O2SAT 94–99
--- NOTE | 2019-09-20 00:34 | PC.PHAR ---
RENAL DOSING OF CIPRO 750MG PO BID CHANGED TO 500 MG BID DUE TO CRCL OF [phone]
[2019-09-20 05:34] LABS: Hematocrit 24.8 % (37.0-47.0); Lymphocytes # 0.2 10^3/uL (0.8-4.8); Lymphocytes % 42.9 %; Mean Corpuscular HGB Conc 32.3 g/dL (30.0-36.0); Mean Corpuscular Hemoglobin 28.6 pg (28.0-34.0); Mean Corpuscular Volume 88.6 fL (81-99); Monocytes % 7.1 %; Neutrophils % 48.2 %; Nucleated Red Blood Cells % 0 %; Platelet Count 32 10^3/cmm (130-400)
[2019-09-20 05:52] LABS: Alanine Aminotransferase 21 U/L (0-33); Albumin Level 3.1 g/dL (3.5-5.2); Alkaline Phosphatase 107 IU/L (35-105); Anion Gap 14.7 (5-19); Blood Urea Nitrogen 21 mg/dL (8-23); Calcium 8.7 mg/dL (8.5-10.5); Carbon Dioxide 21 mmol/L (22-29); Chloride 100 mmol/L (98-107); Globulin 2.7 g/dL (1.3-4.6); Glucose 90 mg/dL (65-115); Magnesium 2.3 mg/dL (1.7-2.3); Osmolality Calculated 268 mOsm/kg (285-295); Phosphorus 2.9 mg/dL (2.5-4.5); Potassium 4.7 mmol/L (3.5-5.1); Sodium 131 mmol/L (136-145); Total Bilirubin 1.7 mg/dL (0.15-1.2); Total Protein 5.8 g/dL (6.6-8.7)
[2019-09-20 06:17] LABS: Aspartate Amino Transferase 25 U/L (0-32)
[2019-09-20 06:26] LABS: White Blood Count 0.6 10^3/uL (4.0-10.0)
[2019-09-20 06:27] LABS: Neutrophils # 0.3 10^3/uL (1.8-7.7); Slide Review Slide Review Perform
[2019-09-20] MEDS: oxyCODONE 5 mg IR Tab/Cap 10 MG PO ×2 (09:38→16:35)
[2019-09-20] MEDS: ciprofloxacin 500 mg Tablet PO ×2 (09:39→18:00)
[2019-09-20] MEDS: amoxicillin-clav 500-125 mg Tablet 1 TAB PO ×3 (09:39→21:14)
--- NOTE | 2019-09-20 09:46 | PC.CHAP ---
Pastoral Care Encounter/Spiritual Assessment Type of Contact [] Declined safety technician visit [] Patient/Family/Request visit [] Outpatient visit [] Follow-up visit [] Physician referral [] Code/Alert [x] Routine visit [] Staff referral [] Actively dying [x] Patient sleeping [] Family support [] [] Out of room [] Palliative care [] [] Receiving care in room [] Pre-surgical visit [] Trauma [] Long length of stay [] ICU visit [] Other: Relational/Emotional Strength [] Patient feels connected with others/family/visitors/staff [] Distress [] Loneliness/isolation [] Abandonment Spirituality of Patient [] Person of Lorena [] Attends Islam of their [place] [] Believes in Prayer [] Reads Bible or Roman Catholic materials [] There are Spiritual issues to be addressed Bobtail Driver Interventions [x] Prayer [] Active listening [] Non-anxious presence [] Spiritual/emotional support [] Crisis/trauma care [] Spiritual counseling [] Bereavement support [] Provided bereavement packet [] Provided Bible/devotional materials [] Provided toy/stuffed animal, coloring book to patient or family member [] Provided Communion [] Anointing/[place] [] Salvation [x] Completed spiritual assessment [] Other: Impact on Illness or Injury [] Angry [] Fearful [] Anxious [] Often cries [] Exhaustion [] Unable to work [] Unable to attend cheondoism [] Unable to walk/stand [] Unable to read [] Unable to drive [] Unable to eat/drink [] Unable to sleep [] Unable to be with family [] Patient intubated [] Other: Summary Patient resting. Nurse setting with her Time spent with patient
--- NOTE | 2019-09-20 10:33 | P.PN_ITS ---
Subjective Subjective: Interval history: This morning patient is alert, she does not know what town she is in, but thinks it is [place], does not know the date, does not know the year, does know that Sha Traylor is the president, she answers most questions appropriately, but is a bit agitated at times. Patient's concerned about being here in the hospital, she has no complaints this morning, no jaw pain, no jaw swelling, no trouble swallowing, no pain with mastication, no fevers, no chills, no cough, no dysuria I had discussion about patient's disposition, patient is agreeable to consider [facility] [place] [facility], currently she is at [facility] I had a discussion with patient about her goals of care, she understands that this is a important decision, she is not ready to make a decision yet, would like to talk to Dr. Chavez Vitaljagruti/I&O/Wt Last Vital Signs Temp 98.5 F 09/20/19 07:55 Pulse 105 H 09/20/19 07:55 Resp 18 09/20/19 09:38 BP 168/89 09/20/19 07:55 Pulse Ox 95 09/20/19 07:55 09/19/19 09/20/19 09/20/19 22:59 06:59 14:59 Intake Total 0 / 858.75 200 / 1058.75 360 / 360 Balance 0 / 858.75 200 / 1058.75 360 / 360 Weight last 48 hrs Weight 79.379 kg Physical Exam Const: COMMON NORMALS: no apparent distress and alert ORIENTATION/CONSCIOUSNESS: Yes oriented to person; not oriented to place and not oriented to time HENMT: COMMON NORMALS: normocephalic HEAD & SCALP: normocephalic Neck/C-Spine: COMMON NORMALS: no JVD Resp: COMMON NORMALS: normal respiratory effort, no retractions, no use of accessory muscles and clear to auscultation bilaterally AUSCULTATION: clear to auscultation bilaterally Cardio: COMMON NORMALS: no JVD, regular rate, regular rhythm, S1 normal heart sound and S2 normal heart sound RATE: regular rate RHYTHM: regular rhythm HEART SOUNDS: S1 normal and S2 normal GI: COMMON NORMALS: normal to inspection, nondistended, normoactive bowel terrie nds, soft to palpation, non-tender, no hepatosplenomegaly, no masses and no bruits PALPATION: Yes soft and Yes no hepatosplenomegaly Extremity: COMMON NORMALS: normal capillary refill, no clubbing, cyanosis or edema, no calf tenderness and no pedal edema Neuro: SENSORIUM/ORIENTATION: Yes alert, Yes oriented to person, No oriented to place and No oriented to time Psych: COMMON NORMALS: mental status grossly normal and thought process normal THOUGHT PROCESS: normal thought process THOUGHT CONTENT: Yes normal thought content ATTENTION/CONCENTRATION: Yes attention grossly intact and Yes concentration grossly intact INSIGHT: fair JUDGEMENT: fair Data : 09/20/19 05:15 09/20/19 05:15 Micro: Microbiology 09/18/19 22:30 Blood Culture - Preliminary Blood NEGATIVE TO DATE 09/18/19 22:25 Blood Culture - Preliminary Blood NEGATIVE TO DATE A&P Assessment and plan (1) Anemia: - Secondary to myelodysplastic syndrome with myelofibrosis -Currently symptomatic with increased shortness of breath and malaise -Status post 1 unit PRBC, hemoglobin up to 8.0 -We will continue to monitor hemoglobin -Patient's myelodysplastic syndrome, 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 Chavez about the case, he states that patient has had a slow decline over the last month, has been more confused, and is been discussing with the patient her goals of care, end-of-life care, hospice, CODE STATUS, however patient would never provide an answer, would always want to discuss with sister before making a decision, but no decision would be made, Dr. Chavez has been kind enough to come by see the patient today -I had a discussion with patient about her goals of care, patient declined to answer again, she stated that she want to talk to Dr. Chavez, wants to continue all interventions, wants to continue to get blood transfusions -Will await Dr. Chavez's discussion with patient -Currently patient is agreeable to go to [facility] [place] [facility] Status: Acute Qualifiers: Anemia type: bone marrow failure Bone marrow failure anemia type: pancytopenia, other Qualified Code(s): D61.818 - Other pancytopenia (2) Myelodysplastic syndrome: Follows with Dr. Chavez, transfusion dependent. No longer a candidate for most if any therapies otherwise. Status: Chronic (3) Chronic right hip pain: -I [place] to [place] [facility], today's a day that patient's fentanyl patch 100 mcg will be changed , we could not find the fentanyl patch on her -Continue fentanyl 100 mcg once daily, continue [place] Status: Chronic (4) Hypertension: -Continue Bumex -Have added Norvasc Status: Chronic Qualifiers: Hypertension type: essential hypertension Qualified Code(s): I10 - Essential (primary) hypertension (5) Chronic kidney disease, stage III (moderate): Probably near baseline Status: Acute (6) Neutropenia: Neutropenic precautions, monitor for fevers, Augmentin and Levaquin Status: Acute (7) Dental abscess: -Dental abscess of right lower molar, with right jaw swelling, and periodontitis -CT scan of the jaw has no evidence of deep tissue infection, no abscess -But given patient's absolute neutropenia will treat with Augmentin and Levaquin -Clinically monitor Status: Acute (8) AMS (altered mental status): -Agitation and altered mental status multifactorial -Likely related to anemia, some component related to opiate withdrawal, dental infection, dementia -I believe that the underlying source of patient's alteration of her mentation is likely her progressive dementia that has been become more pronounced while she is hospitalized -UA is unremarkable for UTI, chest x-ray unremarkable for pneumonia, she does have a right dental abscess without evidence of deep tissue infection Plan: -Haldol for anxiety, will require one-on-one sitter -I have reached out to patient's sisters to help in decision-making Status: Acute Additional A&P Information No pharmacological DVT prophylaxis secondary to thrombocytopenia Full code. I cannot find paperwork or get a clear answer from her regarding advanced directives Anticipate disposition [place] [facility] [place] Attestations Medical Necessity Statement*: She requires continued hospitalization due to dental abscess, neutropenia, anemia, thrombocytopenia, awaiting [place] [facility] [place] Coding Level of Care Code Acute Document Clerk for Madelyn Spann Diagnoses Anemia D61.818 Anemia type: bone marrow failure Bone marrow failure anemia type: pancytopenia, other Myelodysplastic syndrome D46.9 Chronic right hip pain M25.551; G89.29 Hypertension I10 Hypertension type: essential hypertension Chronic kidney disease, stage III (moderate) N18.3 Neutropenia D70.9 Dental abscess K04.7 AMS (altered mental status) R41.82
[2019-09-20] MEDS: amlodipine 10 mg Tablet PO (11:56)
[2019-09-20] MEDS: famotidine 20 mg Tablet PO (17:59)
[2019-09-20] MEDS: ropinirole 0.25 mg Tablet 0.5 MG PO (18:00)
[2019-09-21] VITALS (13 sets, daily range): BP systolic 95–127; BP diastolic 53–67; PULSE 70–93; RESP 18–70; TEMP 36.5–37.6; O2SAT 95–100
[2019-09-21] MEDS: oxyCODONE 5 mg IR Tab/Cap 10 MG PO ×2 (03:20→09:09)
[2019-09-21 05:30] LABS: Hematocrit 22.5 % (37.0-47.0); Hemoglobin 7.4 g/dL (11.5-15.3); Lymphocytes # 0.4 10^3/uL (0.8-4.8); Lymphocytes % 42.2 %; Mean Corpuscular HGB Conc 32.9 g/dL (30.0-36.0); Mean Corpuscular Hemoglobin 29.4 pg (28.0-34.0); Mean Corpuscular Volume 89.3 fL (81-99); Monocytes # 0.1 10^3/uL (0.2-0.9); Monocytes % 8.4 %; Neutrophils % 48.2 %; Nucleated Red Blood Cells % 0 %; Platelet Count 33 10^3/cmm (130-400); Red Blood Count 2.52 10^6/uL (4.1-5.3); Red Cell Distribution Width 13.2 % (12.1-15.1)
[2019-09-21 05:45] LABS: White Blood Count 0.8 10^3/uL (4.0-10.0)
[2019-09-21 05:46] LABS: Alanine Aminotransferase 20 U/L (0-33); Albumin Level 2.9 g/dL (3.5-5.2); Alkaline Phosphatase 100 IU/L (35-105); Anion Gap 12.5 (5-19); Aspartate Amino Transferase 19 U/L (0-32); Blood Urea Nitrogen 25 mg/dL (8-23); Calcium 8.5 mg/dL (8.5-10.5); Carbon Dioxide 23 mmol/L (22-29); Chloride 100 mmol/L (98-107); Globulin 2.6 g/dL (1.3-4.6); Glucose 101 mg/dL (65-115); Magnesium 2.2 mg/dL (1.7-2.3); Neutrophils # 0.4 10^3/uL (1.8-7.7); Osmolality Calculated 269 mOsm/kg (285-295); Phosphorus 3.1 mg/dL (2.5-4.5); Potassium 4.5 mmol/L (3.5-5.1); Sodium 131 mmol/L (136-145); Total Bilirubin 1.4 mg/dL (0.15-1.2); Total Protein 5.5 g/dL (6.6-8.7)
[2019-09-21] MEDS: bumetanide 1 mg Tablet 2 MG PO (09:02)
[2019-09-21] MEDS: amlodipine 10 mg Tablet PO (09:02)
[2019-09-21] MEDS: amoxicillin-clav 500-125 mg Tablet 1 TAB PO ×3 (09:03→20:15)
[2019-09-21] MEDS: escitalopram 10 mg Tablet 20 MG PO (09:03)
[2019-09-21] MEDS: famotidine 20 mg Tablet PO ×2 (09:03→18:23)
[2019-09-21] MEDS: ropinirole 0.25 mg Tablet 0.5 MG PO ×2 (09:03→18:09)
[2019-09-21] MEDS: ciprofloxacin 500 mg Tablet PO ×2 (09:03→18:08)
--- NOTE | 2019-09-21 11:35 | PC.CHAP ---
Pastoral Care Encounter/Spiritual Assessment Type of Contact [] Declined visual effects artist visit [] Patient/Family/Request visit [] Outpatient visit [] Follow-up visit [] Physician referral [] Code/Alert [] Routine visit [] Staff referral [] Actively dying [] Patient sleeping [] Family support [] [] Out of room [] Palliative care [] [] Receiving care in room [] Pre-surgical visit [] Trauma [] Long length of stay [] ICU visit [x] Other: Isolation Relational/Emotional Strength [] Patient feels connected with others/family/visitors/staff [] Distress [] Loneliness/isolation [] Abandonment Spirituality of Patient [] Person of Lorena [] Attends Mandaen of their [place] [] Believes in Prayer [] Reads Bible or [place] materials [] There are Spiritual issues to be addressed Entertainer & Comic Interventions [] Prayer [] Active listening [] Non-anxious presence [] Spiritual/emotional support [] Crisis/trauma care [] Spiritual counseling [] Bereavement support [] Provided bereavement packet [] Provided Bible/devotional materials [] Provided toy/stuffed animal, coloring book to patient or family member [] Provided Communion [] Anointing/[place] [] Salvation [] Completed spiritual assessment [] Other: Impact on Illness or Injury [] Angry [] Fearful [] Anxious [] Often cries [] Exhaustion [] Unable to work [] Unable to attend congregation [] Unable to walk/stand [] Unable to read [] Unable to drive [] Unable to eat/drink [] Unable to sleep [] Unable to be with family [] Patient intubated [] Other: Summary isolation Time spent with patient 5 mins
--- NOTE | 2019-09-21 12:14 | PC.NURSE ---
Behavior calm patent is was sitting up in her chair eating her lunch, sitter placed call light to have her placed back in bed, patient transferred well with walker and stand by assistance. currently resting in bed calm and happy.
[2019-09-21] MEDS: LORazepam 2 mg/mL INJ 1 mL 1 MG IVP (14:29)
--- NOTE | 2019-09-21 15:51 | P.PN_ITS ---
Subjective Subjective: Interval history: She denies current complains, although earlier did get restless, requesting to call her sister and ended up scratching a nurse in agitation. She had received some Ativan. I had been told this in report after seeing her, and after Ativan during my visit she was calm, collective, able to discuss to limited extent about her condition, remembered speaking to Dr. Chavez yesterday, and stating that limited things can be done for her condition, however, states what could be done has been and she has been interested in continuing so for now. On attempted discussion of goals of care in case of deterioration and cardiopulmonary arrest, she avoids the topic, stating she has not thought about things, and feels that she should discuss this with her family which I encouraged her as well as the previous providers have, though it does not appear that she has so far. I discussed her condition, prognosis, as well as our discussion on goals of care also with her sister to make her informed. Vitals/I&O/Wt Last Vital Signs Temp 98.9 F 09/21/19 12:00 Pulse 72 09/21/19 12:00 Resp 18 09/21/19 12:00 BP 116/62 09/21/19 12:00 Pulse Ox 96 09/21/19 12:00 09/21/19 09/21/19 09/21/19 06:59 14:59 22:59 Intake Total 500 / 1180 350 / 350 Output Total 200 / 401 Balance 300 / 779 350 / 350 Physical Exam Const: COMMON NORMALS: no apparent distress GENERAL APPEARANCE: frail appearing OTHER: Sitting up in chair. HENMT: COMMON NORMALS: oropharynx normal Neck/C-Spine: COMMON NORMALS: no JVD Resp: COMMON NORMALS: normal respiratory effort and clear to auscultation bilaterally AUSCULTATION: clear to auscultation bilaterally Cardio: COMMON NORMALS: no JVD, regular rhythm, S1 normal heart sound, S2 normal heart sound and no murmurs RHYTHM: regular rhythm HEART SOUNDS: S1 normal and S2 normal GI: COMMON NORMALS: normal to inspection, nondistended, normoactive bowel sounds, soft to palpation and non-tender PALPATION: Yes soft Extremity: COMMON NORMALS: no joint enlargement and no pedal edema Neuro: COMMON NORMALS: moves all extremities Skin: COMMON NORMALS: no rashes or lesions noted GENERAL SKIN EXAM: no rashes or lesions noted and ecchymosis Data : 09/21/19 05:05 09/21/19 05:05 A&P Assessment and plan (1) Anemia: Pancytopenia with MDS. Transfusion dependent. She appears to understand that she has the condition, and that she has been receiving transfusions to help support her blood counts, and she has been interested/willing to continue. She is less clear with regards to any additional goals of care, including any CPR wishes in case of cardiopulmonary arrest. Discussed with her internet cafe manager. At this time will give her additional 1 unit PRBC transfusion. As she is currently neutropenic, with suspected dental infection, continue antibiotics. IV Flagyl while in the hospital. Discussed with hematology. In case requiring procedure may need platelet pheresis prior to that. We will follow-up in office for reassessment, and referred for dental procedure if not improving, to be timed with a platelet transfusion. Discussed this also with her sister who Bertha who I am told has power of manufacturing engineer chief and is in agreement with the plan. 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 Will cut down dose of fentanyl patch to 50 mcg in case this is contributing to her episodes of confusion. For now continue Ativan as needed as she appears to responding well to this, although discussed with her sister long-term this is not an optimal strategy, but may be necessary in case of recurrent episodes of agitation. -I spoke to the care home, today's a day that patient's fentanyl patch 100 mcg will be changed , we could not find the fentanyl patch on her Continue Julian Status: Chronic (4) Hypertension: Blood pressure soft. Hold Bumex. Decrease amlodipine dose to 5 mg for now. Monitor. Decrease fentanyl patch to 50 mcg. Status: Chronic Qualifiers: Hypertension type: essential hypertension Qualified Code(s): I10 - Esse ntial (primary) hypertension (5) Chronic kidney disease, stage III (moderate): Probably near baseline Status: Acute (6) Neutropenia: Neutropenic precautions, monitor for fevers, Augmentin and Levaquin Status: Acute (7) Dental abscess: -Dental abscess of right lower molar, with right jaw swelling, and periodontitis -CT scan of the jaw has no evidence of deep tissue infection, no abscess -But given patient's absolute neutropenia will treat with antibiotic. Follow-up for resolution. Refer to dentist if not improving, may need platelets transfusion prior to any procedure due to thrombocytopenia. Status: Acute (8) AMS (altered mental status): Discussed with her sister. Concern is for possible progressing underlying chronic cognitive decline, possibly dementia, which may be making her more prone to episodes of delirium perhaps due to general medical condition, hospitalization, periodontal infection, combined with her age and polypharmacy. As above for now we will decrease fentanyl patch dose to 50 mcg. Monitor symptoms and if very agitated may require Ativan as appears to respond well today. Subsequently calm and lucid during discussion with me. Discussed with her sister that unfortunately she is at elevated risk of delirium. Her sister has been unable to visits due to hospitalwide visitation restrictions. Encouraged her sisters to call when to help reorient. She has done well enough to discontinue sitter. Will have bed alarm on. Monitor. Status: Acute Additional A&P Information Physical deconditioning: Deconditioned, requiring also supervision and greater level of care, awaiting placement to SNF. Attestations Medical Necessity Statement*: Continue admission for assessment management of pancytopenia, anemia, altered mental status with episodes of delirium, periodontal infection. Coding Level of Care Code Acute Hose Wrapper for [facility] Diagnoses Anemia D61.818 Anemia type: bone marrow failure Bone marrow failure anemia type: pancytopenia, other Myelodysplastic syndrome D46.9 Chronic right hip pain M25.551; G89.29 Hypertension I10 Hypertension type: essential hypertension Chronic kidney disease, stage III (moderate) N18.3 Neutropenia D70.9 Dental abscess K04.7 AMS (altered mental status) R41.82
[2019-09-21] MEDS: sodium chloride 0.9% 100 ML 10 ML (18:09)
[2019-09-21] MEDS: fentaNYL 50 mcg Patch 1 PATCH TRANSDERMA (18:17)
[2019-09-21] MEDS: metroNIDAZOLE IV 500 MG/100 ML PREMIX 100 MG IV (20:17)
[2019-09-21 21:19] LABS: Basophils % 0.9 %; Hematocrit 27.3 % (37.0-47.0); Hemoglobin 8.7 g/dL (11.5-15.3); Lymphocytes # 0.5 10^3/uL (0.8-4.8); Lymphocytes % 44.4 %; Mean Corpuscular HGB Conc 31.9 g/dL (30.0-36.0); Mean Corpuscular Hemoglobin 29.5 pg (28.0-34.0); Mean Corpuscular Volume 92.5 fL (81-99); Monocytes # 0.1 10^3/uL (0.2-0.9); Neutrophils % 38.9 %; Nucleated Red Blood Cells % 0 %; Platelet Count 36 10^3/cmm (130-400); Red Blood Count 2.95 10^6/uL (4.1-5.3); Red Cell Distribution Width 13.2 % (12.1-15.1); White Blood Count 1.1 10^3/uL (4.0-10.0)
[2019-09-21 21:23] LABS: Neutrophils # 0.4 10^3/uL (1.8-7.7)
[2019-09-22] VITALS: BP 135/60; PULSE 76; RESP 17; TEMP 36.9; O2SAT 96
[2019-09-22] MEDS: metroNIDAZOLE IV 500 MG/100 ML PREMIX 100 MG IV ×4 (01:36→20:54)
[2019-09-22] MEDS: HYDROcodone-acetaminophen 10-325 mg Tablet PO (01:40)
[2019-09-22 04:00] VITALS: BP 143/58; PULSE 77; RESP 16; TEMP 36.8; O2SAT 96
[2019-09-22 05:28] LABS: Hemoglobin 7.7 g/dL (11.5-15.3); Lymphocytes # 0.3 10^3/uL (0.8-4.8); Lymphocytes % 52.5 %; Mean Corpuscular HGB Conc 30.8 g/dL (30.0-36.0); Mean Corpuscular Hemoglobin 29.5 pg (28.0-34.0); Mean Corpuscular Volume 95.8 fL (81-99); Monocytes # 0.1 10^3/uL (0.2-0.9); Monocytes % 9.8 %; Neutrophils % 34.4 %; Nucleated Red Blood Cells % 0 %; Platelet Count 29 10^3/cmm (130-400); Red Blood Count 2.61 10^6/uL (4.1-5.3); Red Cell Distribution Width 13.3 % (12.1-15.1)
[2019-09-22 05:49] LABS: Alanine Aminotransferase 19 U/L (0-33); Albumin Level 2.8 g/dL (3.5-5.2); Alkaline Phosphatase 88 IU/L (35-105); Anion Gap 16.5 (5-19); Aspartate Amino Transferase 16 U/L (0-32); Blood Urea Nitrogen 41 mg/dL (8-23); Calcium 8.5 mg/dL (8.5-10.5); Carbon Dioxide 19 mmol/L (22-29); Chloride 98 mmol/L (98-107); Globulin 2.9 g/dL (1.3-4.6); Glucose 96 mg/dL (65-115); Magnesium 2.3 mg/dL (1.7-2.3); Osmolality Calculated 266 mOsm/kg (285-295); Phosphorus 4.9 mg/dL (2.5-4.5); Potassium 4.5 mmol/L (3.5-5.1); Sodium 129 mmol/L (136-145); Total Bilirubin 1.1 mg/dL (0.15-1.2); Total Protein 5.7 g/dL (6.6-8.7)
[2019-09-22 06:06] LABS: Neutrophils # 0.2 10^3/uL (1.8-7.7); Slide Review Slide Review Perform; White Blood Count 0.6 10^3/uL (4.0-10.0)
[2019-09-22 08:00] VITALS: BP 143/63; PULSE 96; RESP 16; TEMP 36.4; O2SAT 99
[2019-09-22] MEDS: ciprofloxacin 500 mg Tablet PO ×2 (09:24→16:54)
[2019-09-22] MEDS: famotidine 20 mg Tablet PO ×2 (09:24→16:54)
[2019-09-22] MEDS: ropinirole 0.25 mg Tablet 0.5 MG PO ×2 (09:24→16:54)
[2019-09-22] MEDS: escitalopram 10 mg Tablet 20 MG PO (09:24)
[2019-09-22] MEDS: amlodipine 10 mg Tablet 5 MG PO (09:25)
[2019-09-22] MEDS: amoxicillin-clav 500-125 mg Tablet 1 TAB PO ×3 (09:25→21:08)
[2019-09-22 11:14] VITALS: BP 111/50; PULSE 75; RESP 16; TEMP 36.9; O2SAT 98
[2019-09-22 15:47] VITALS: BP 132/61; PULSE 81; RESP 16; TEMP 37.2; O2SAT 96
[2019-09-22] MEDS: LORazepam 2 mg/mL INJ 1 mL 1 MG IVP (16:53)
[2019-09-22 20:00] VITALS: BP 130/62; PULSE 79; RESP 16; TEMP 36.8; O2SAT 96
--- NOTE | 2019-09-22 22:06 | PM.PN ---
Subjective Subjective: Interval history: She reports she is doing okay today, even feeling little better than yesterday. Vitals/I&O/Wt Last Vital Signs Temp 99.0 F 09/22/19 15:47 Pulse 81 09/22/19 15:47 Resp 16 09/22/19 15:47 BP 132/61 09/22/19 15:47 Pulse Ox 96 09/22/19 15:47 09/22/19 09/22/19 09/22/19 06:59 14:59 22:59 Intake Total 220 / 1140 220 / 220 220 / 440 Balance 220 / 1140 220 / 220 220 / 440 Physical Exam Const: COMMON NORMALS: no apparent distress GENERAL APPEARANCE: frail appearing OTHER: Sitting up in bed. HENMT: FACE & SINUS: other MOUTH: other (Only very minimal swelling at the right side lower cheek, no significant erythema, I do not appreciate a significant gingival swelling, purulence.) Neck/C-Spine: COMMON NORMALS: no JVD Resp: COMMON NORMALS: normal respiratory effort and clear to auscultation bilaterally AUSCULTATION: clear to auscultation bilaterally Cardio: COMMON NORMALS: no JVD, regular rhythm, S1 normal heart sound, S2 normal heart sound and no murmurs RHYTHM: regular rhythm HEART SOUNDS: S1 normal and S2 normal GI: COMMON NORMALS: normal to inspection, nondistended, normoactive bowel sounds, soft to palpation and non-tender PALPATION: Yes soft Extremity: COMMON NORMALS: no joint enlargement and no pedal edema Neuro: COMMON NORMALS: moves all extremities Skin: COMMON NORMALS: no rashes or lesions noted GENERAL SKIN EXAM: no rashes or lesions noted and ecchymosis Data : 09/22/19 04:44 09/22/19 04:44 A&P Assessment and plan (1) Anemia: Pancytopenia with MDS. Transfusion dependent. Improvement in hemoglobin although still 7.7. Will transfuse additional unit PRBC. Goal hemoglobin 8 per her java golden gate developer. If remains stable, potentially may be be discharged tomorrow. Status: Acute Qualifiers: Anemia type: bone marrow failure Bone marrow failure anemia type: pancytopenia, other Qualified Code(s): D61.818 - Other pancytopenia (2) Myelodysplastic syndrome: Transfusion dependent. With neutropenia, with periodontal infection. Currently on antibiotics. Does not appear to be septic. Not febrile. Monitor cautiously due to her severe neutropenia. Neutropenic precautions. In case requiring dental procedure for extraction may need platelet pheresis prior to that. We will follow-up in office for reassessment, and referred for dental procedure if not improving, to be timed with a platelet transfusion. Status: Chronic (3) Chronic right hip pain: Cut down dose of fentanyl patch to 50 mcg in case this is contributing to her episodes of confusion. For now continue Ativan as needed as she appears to responding well to this, although discussed with her sister long-term this is not an optimal strategy, but may be necessary in case of recurrent episodes of agitation. Status: Chronic (4) Hypertension: Blood pressure better. Hold Bumex. Decrease amlodipine dose to 5 mg for now. Monitor. Decreased fentanyl patch to 50 mcg. Status: Chronic Qualifiers: Hypertension type: essential hypertension Qualified Code(s): I10 - Essential (primary) hypertension (5) Chronic kidney disease, stage III (moderate): Probably near baseline Status: Acute (6) Neutropenia: Neutropenic precautions, monitor for fevers, Augmentin and Levaquin Status: Acute (7) Dental abscess: As above. -Dental abscess of right lower molar, with right jaw swelling, and periodontitis -CT scan of the jaw has no evidence of deep tissue infection, no abscess -But given patient's absolute neutropenia will treat with antibiotic. Follow-up for resolution. Refer to dentist if not improving, may need platelets transfusion prior to any procedure due to thrombocytopenia. Status: Acute (8) AMS (altered mental status): Better today. In good spirits. Has been doing well without one-to-one sitter. Discussed with her sister. Concern is for possible progressing underlying chronic cognitive decline, possibly dementia, which may be making her more prone to episodes of delirium perhaps due to general medical condition, hospitalization, periodontal infection, combined with her age and polypharmacy. As above for now we will decrease fentanyl patch dose to 50 mcg. Monitor symptoms and if very agitated may require Ativan as appears to respond well today. Subsequently calm and lucid during discussion with me. Discussed with her sister that unfortunately she is at elevated risk of delirium. Her sister has been unable to visits due to hospitalwide visitation restrictions. Encouraged her sisters to call when to help reorient. Status: Acute Additional A&P Information Acute kidney injury: Creatinine up to 1.9 today. Not clear cause. Reviewed her medications, does not appear to have any nephrotoxins. Bumex is on hold. Recheck renal function, monitor that is not declining. Physical deconditioning: Deconditioned, requiring also supervision and greater level of care, awaiting placement to SNF. Attestations Medical Necessity Statement*: Continue to assessment management of MDS, with transfusion dependence, anemia, additional transfusions today, and monitor for worsening renal function with acute kidney injury, if doing well, potential discharge to nursing home facility with outpatient follow-up with hematology and possible follow-up with dentistry. Coding Level of Care Code Acute Cooper Apprentice for [facility] Fwd Diagnoses Anemia D61.818 Anemia type: bone marrow failure Bone marrow failure anemia type: pancytopenia, other Myelodysplastic syndrome D46.9 Chronic right hip pain M25.551; G89.29 Hypertension I10 Hypertension type: essential hypertension Chronic kidney disease, stage III (moderate) N18.3 Neutropenia D70.9 Dental abscess K04.7 AMS (altered mental status) R41.82
[2019-09-23] VITALS (11 sets, daily range): BP systolic 126–146; BP diastolic 58–67; PULSE 70–86; RESP 16–22; TEMP 36.6–37.4; O2SAT 92–100
[2019-09-23 02:31] LABS: Hematocrit 22.3 % (37.0-47.0); Hemoglobin 7.2 g/dL (11.5-15.3); Lymphocytes # 0.3 10^3/uL (0.8-4.8); Lymphocytes % 49.1 %; Mean Corpuscular HGB Conc 32.3 g/dL (30.0-36.0); Mean Corpuscular Hemoglobin 29.1 pg (28.0-34.0); Mean Corpuscular Volume 90.3 fL (81-99); Monocytes % 7.3 %; Neutrophils % 41.8 %; Nucleated Red Blood Cells % 0 %; Red Blood Count 2.47 10^6/uL (4.1-5.3); Red Cell Distribution Width 13.2 % (12.1-15.1)
[2019-09-23] MEDS: metroNIDAZOLE IV 500 MG/100 ML PREMIX 100 MG IV ×4 (02:32→21:03)
[2019-09-23 02:36] LABS: Anion Gap 13.4 (5-19); Blood Urea Nitrogen 45 mg/dL (8-23); Carbon Dioxide 21 mmol/L (22-29); Chloride 102 mmol/L (98-107); Glucose 85 mg/dL (65-115); Osmolality Calculated 271 mOsm/kg (285-295); Potassium 4.4 mmol/L (3.5-5.1); Sodium 132 mmol/L (136-145)
[2019-09-23 03:59] LABS: Neutrophils # 0.2 10^3/uL (1.8-7.7); Platelet Count 25 10^3/cmm (130-400); White Blood Count 0.6 10^3/uL (4.0-10.0)
[2019-09-23] MEDS: sodium chloride 0.9% (100 ml) 100 ML (06:01)
--- NOTE | 2019-09-23 07:52 | US_ITS ---
NOTE: Report was unsigned for reason: Order was edited. Original Signature date and time was: 09/23/19 0901 WS: [id number] RENAL ULTRASOUND HISTORY: JADIEL COMPARISON: 10/29/2010 TECHNIQUE: 2-D and color Doppler imaging of the kidney submitted. Right kidney: 10.0 cm x 4.1 cm x 3.6 cm. Normal echogenicity with no hydronephrosis or mass. Left kidney: 9.8 cm x 3.8 cm x 4.0 cm. Normal echogenicity with no hydronephrosis or mass. Aorta: Normal. Urinary Bladder: Normal distention. [facility] US/US renal BI with bladder IMPRESSION: Normal renal ultrasound.
[2019-09-23] MEDS: ropinirole 0.25 mg Tablet 0.5 MG PO ×2 (08:03→17:37)
[2019-09-23] MEDS: amoxicillin-clav 500-125 mg Tablet 1 TAB PO ×3 (08:03→21:04)
[2019-09-23] MEDS: famotidine 20 mg Tablet PO (08:03)
[2019-09-23] MEDS: ciprofloxacin 500 mg Tablet PO (08:04)
[2019-09-23] MEDS: escitalopram 10 mg Tablet 20 MG PO (08:04)
[2019-09-23] MEDS: amlodipine 10 mg Tablet 5 MG PO (08:04)
[2019-09-23 08:23] LABS: Creatine Phosphokinase 9 U/L (26-192); Iron 65 ug/dL (37-145); Percent Saturation 66.3 % (20-50); Total Iron Binding Capacity 98 mcg/dl; Unsaturated Iron Binding 33 ug/dL (112-347)
[2019-09-23 08:37] LABS: Vitamin B12 1115 pg/mL (232-1245)
[2019-09-23 08:38] LABS: Folate Level 3.3 ng/mL (4.8-37.3)
[2019-09-23 09:15] LABS: Ferritin 2666 ng/mL (15-150)
--- NOTE | 2019-09-23 09:15 | PC.SOCIAL ---
IMM Page 2 of IMM explained to patient. Initialed, dated, and timed and placed in chart. Copy provided to patient.
--- NOTE | 2019-09-23 12:27 | P.PN_ITS ---
Subjective Subjective: Interval history: She says she is doing all right. Reportedly per nursing staff was thirsty earlier. Denies any pain or discomfort. Vitals/I&O/Wt Last Vital Signs Temp 98.2 F 09/23/19 11:28 Pulse 70 09/23/19 11:28 Resp 22 H 09/23/19 11:28 BP 131/62 09/23/19 11:28 Pulse Ox 96 09/23/19 11:28 09/22/19 09/23/19 09/23/19 22:59 06:59 14:59 Intake Total 800 / 1020 350 / 1370 640 / 640 Output Total 150 / 150 700 / 700 Balance 800 / 1020 200 / 1220 -60 / -60 Physical Exam Const: COMMON NORMALS: no apparent distress GENERAL APPEARANCE: frail appearing OTHER: Sitting up in chair. HENMT: COMMON NORMALS: oropharynx normal FACE & SINUS: other MOUTH: other (Only very minimal swelling at the right side lower cheek, no significant erythema, I do not appreciate a significant gingival swelling, purulence.) Neck/C-Spine: COMMON NORMALS: no JVD Resp: COMMON NORMALS: normal respiratory effort and clear to auscultation bilaterally AUSCULTATION: clear to auscultation bilaterally Cardio: COMMON NORMALS: no JVD, regular rhythm, S1 normal heart sound, S2 n ormal heart sound and no murmurs RHYTHM: regular rhythm HEART SOUNDS: S1 normal and S2 normal GI: COMMON NORMALS: normal to inspection, nondistended, normoactive bowel sounds, soft to palpation and non-tender PALPATION: Yes soft Extremity: COMMON NORMALS: no joint enlargement and no pedal edema Neuro: COMMON NORMALS: moves all extremities Skin: COMMON NORMALS: no rashes or lesions noted GENERAL SKIN EXAM: no rashes or lesions noted and ecchymosis Data : 09/23/19 01:45 09/23/19 01:45 A&P Assessment and plan (1) Anemia: Hemoglobin is again down to 7.2. So far 3 units PRBC transfused during his hospitalization. No outward bleeding grossly noted. Will request for Hemoccult. Change famotidine to Protonix. Discussed with hematology, also request for LDH, haptoglobin. For now hold off additional transfusion as she is also developing JADIEL, otherwise clinically stable. She is iron overloaded. B12 is normal. Folic acid is low. Will request replacement. Monitor. If does not continue to trend down, remains clinically stable, perhaps may be will discharge with outpatient follow-up. Discussed plan with her. Pancytopenia with MDS. Transfusion dependent. Status: Acute Qualifiers: Anemia type: bone marrow failure Bone marrow failure anemia type: pancytopenia, other Qualified Code(s): D61.818 - Other pancytopenia (2) JADIEL (acute kidney injury): Creatinine up to 2 today. BUN elevated 45. Reportedly has been thirsty and drinking quite a bit today. Renal studies, US ordered. I do not see any obvious medications that may contribute to her acute kidney injury. We will switch out famotidine to pantoprazole. We will give gentle IV hydration. With concern of possibly pigment induced injury for now avoid additional transfusion. Status: Acute (3) Myelodysplastic syndrome: Transfusion dependent. With neutropenia, with periodontal infection. Currently on antibiotics. Does not appear to be septic. Not febrile. Monitor cautiously due to her severe neutropenia. Neutropenic precautions. In case requiring dental procedure for extraction may need platelet pheresis prior to that. We will follow-up in office for reassessment, and referred for dental procedure if not improving, to be timed with a platelet transfusion. Status: Chronic (4) Chronic right hip pain: Cut down dose of fentanyl patch to 50 mcg in case this is contributing to her episodes of confusion. For now continue Ativan as needed as she appears to responding well to this, although discussed with her sister long-term this is not an optimal strategy, but may be necessary in case of recurrent episodes of agitation. Status: Chronic (5) Hypertension: Blood pressure better. Hold Bumex. Decrease amlodipine dose to 5 mg for now. Monitor. Decreased fentanyl patch to 50 mcg. Status: Chronic Qualifiers: Hypertension type: essential hypertension Qualified Code(s): I10 - Essential (primary) hypertension (6) Chronic kidney disease, stage III (moderate): Probably near baseline Status: Acute (7) Neutropenia: Neutropenic precautions, monitor for fevers, Augmentin and Levaquin Status: Acute (8) Dental abscess: As above. -Dental abscess of right lower molar, with right jaw swelling, and periodontitis -CT scan of the jaw has no evidence of deep tissue infection, no abscess -But given patient's absolute neutropenia will treat with antibiotic. Follow-up for resolution. Refer to dentist if not improving, may need platelets transfusion prior to any procedure due to thrombocytopenia. Status: Acute (9) AMS (altered mental status): Better. Has been doing well without one-to-one sitter. Concern is for possible progressing underlying chronic cognitive decline, possibly dementia, which may be making her more prone to episodes of delirium perhaps due to general medical condition, hospitalization, periodontal infection, combined with her age and polypharmacy. As above for now we will decrease fentanyl patch dose to 50 mcg. Monitor symptoms and if very agitated may require Ativan as appears to respond well today. Subsequently calm and lucid during discussion with me. Discussed with her sister that unfortunately she is at elevated risk of delirium. Her sister has been unable to visits due to hospitalwide visitation restrictions. Encouraged her sisters to call when to help reorient. Status: Acute Additional A&P Information Physical deconditioning: Deconditioned, requiring also supervision and greater level of care, awaiting placement to SNF. Attestations Medical Necessity Statement*: Continue admission for cyst management of acute on chronic anemia, pancytopenia, acute kidney injury. Coding Level of Care Code Acute Electric Motor Winder for [facility] Fwd Diagnoses Anemia D61.818 Anemia type: bone marrow failure Bone marrow failure anemia type: pancytopenia, other JADIEL (acute kidney injury) N17.9 Myelodysplastic syndrome D46.9 Chronic right hip pain M25.551; G89.29 Hypertension I10 Hypertension type: essential hypertension Chronic kidney disease, stage III (moderate) N18.3 Neutropenia D70.9 Dental abscess K04.7 AMS (altered mental status) R41.82
[2019-09-23 12:49] LABS: Lactate Dehydrogenase 150 U/L (135-214)
[2019-09-23] MEDS: pantoprazole DR 40 mg Tablet PO (13:57)
[2019-09-23] MEDS: folic acid 1 mg Tablet PO (13:58)
[2019-09-23] MEDS: sodium chloride 0.9% 1,000 ML 30 ML IV (14:00)
[2019-09-23] MEDS: acetaminophen 325 mg Tablet 650 MG PO (15:20)
[2019-09-23 17:00] LABS: Urine Creatinine 111 mg/dL (28-217)
[2019-09-23 17:01] LABS: Urine Random Sodium 15 mmol/L
--- NOTE | 2019-09-23 18:11 | PC.NURSE ---
Patient set up for all meals, with assist of one. Patient was continent of urine and stool today, but has incontinence of urine at night. Appetite is fair, eating %50 of meals. Patient has had adequate PO intake of water. Patient complained in pain in her groin and received tylenol and states it helped.
[2019-09-24] VITALS: BP 131/68; PULSE 76; RESP 17; TEMP 36.6; O2SAT 97
[2019-09-24] MEDS: HYDROcodone-acetaminophen 10-325 mg Tablet 1 TAB PO (01:47)
[2019-09-24] MEDS: metroNIDAZOLE IV 500 MG/100 ML PREMIX 100 MG IV ×2 (02:40→08:31)
[2019-09-24] MEDS: ciprofloxacin 500 mg Tablet PO (02:51)
[2019-09-24 03:42] LABS: Urea Nitrogen,Urine Random 824 mg/dL
[2019-09-24 04:00] VITALS: BP 145/69; PULSE 76; RESP 16; TEMP 36.6; O2SAT 97
[2019-09-24 05:34] LABS: Hematocrit 24.2 % (37.0-47.0); Lymphocytes # 0.3 10^3/uL (0.8-4.8); Lymphocytes % 67.3 %; Mean Corpuscular HGB Conc 33.1 g/dL (30.0-36.0); Mean Corpuscular Volume 90.6 fL (81-99); Monocytes % 6.1 %; Neutrophils % 24.6 %; Nucleated Red Blood Cells % 0 %; Red Blood Count 2.67 10^6/uL (4.1-5.3); Red Cell Distribution Width 13.2 % (12.1-15.1)
[2019-09-24 05:59] LABS: Anion Gap 13.2 (5-19); Blood Urea Nitrogen 37 mg/dL (8-23); Calcium 8.5 mg/dL (8.5-10.5); Carbon Dioxide 21 mmol/L (22-29); Chloride 103 mmol/L (98-107); Glucose 93 mg/dL (65-115); Osmolality Calculated 273 mOsm/kg (285-295); Potassium 4.2 mmol/L (3.5-5.1); Sodium 133 mmol/L (136-145)
[2019-09-24 06:27] LABS: Neutrophils # 0.1 10^3/uL (1.8-7.7); Platelet Count 26 10^3/cmm (130-400); Slide Review Slide Review Perform; White Blood Count 0.5 10^3/uL (4.0-10.0)
[2019-09-24 07:54] VITALS: BP 160/60; PULSE 76; RESP 18; TEMP 36.3; O2SAT 98
[2019-09-24] MEDS: sodium chloride 0.9% 1,000 ML 30 ML IV (08:31)
[2019-09-24] MEDS: amoxicillin-clav 500-125 mg Tablet 1 TAB PO (08:32)
[2019-09-24] MEDS: pantoprazole DR 40 mg Tablet PO (08:32)
[2019-09-24] MEDS: amlodipine 10 mg Tablet 5 MG PO (08:32)
[2019-09-24] MEDS: escitalopram 10 mg Tablet 20 MG PO (08:32)
[2019-09-24] MEDS: folic acid 1 mg Tablet PO (08:32)
[2019-09-24] MEDS: ropinirole 0.25 mg Tablet 0.5 MG PO (08:32)
[2019-09-24 11:43] VITALS: BP 162/62; PULSE 90; RESP 18; TEMP 36.6; O2SAT 97
--- NOTE | 2019-09-24 12:29 | P.DS_ITS ---
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, associated with neutropenia and thrombocytopenia (7) Chronic right hip pain: Status: Chronic Problem details: Declined palliative surgery (8) Hypertension: Status: Chronic Qualifiers: Hypertension type: essential hypertension Qualified Code(s): I10 - Essential (primary) hypertension (9) Chronic kidney disease, stage III (moderate): Status: Acute Reason for Visit Reason for Visit: Reason For Visit: NEEDS BLOOD TRANSFUSION/ WEAKNESS Hospital Course Hospital Course: Very pleasant 79-year-old lady with advanced mild dysplastic syndrome, with pancytopenia, transfusion dependent, following up with hematology, treated with palliative transfusions. She was admitted from emergency department due to worsening anemia requiring transfusion, as well as generalized weakness. Confusion/altered mental status was also noted on presentation, perhaps either due to worsening anemia, or related to polypharmacy, possibly fentanyl patch. Dose of this had been decreased to 50 mcg. She has been treated for periodontal infection of right lower molar with which she has been having trouble for a while. No evidence of other acute infection was noted. Blood culture has been negative. She is remained afebrile. For now she will continue on 10 more days of Augmentin and ciprofloxacin. Please extend coverage as needed depending on clinical symptoms. 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 During the hospital also was noted to have mild acute kidney injury with creatinine up to 1.9. Appears to have been mildly dehydrated, and so Bumex dose is decreased to 1 mg. This improved with gentle fluid challenge with slow IV hydration. She states she is feeling well. Her condition and plan was discussed with her sister who Bertha who has power of steak tenderizer machine healthcare. With extremely poor prognosis discussion of goals of care was attempted during this admission, however, patient has been reluctant to make any decisions, and for now preferring to continue the status quo with palliative transfusions. Continue to readdress as her condition evolves. Physical Exam Const: COMMON NORMALS: no apparent distress GENERAL APPEARANCE: frail appearing OTHER: Sitting up in bed. HENMT: COMMON NORMALS: oropharynx normal FACE & SINUS: other MOUTH: other (Barely perceptible if any swelling at the right side lower cheek, no significant erythema, I do not appreciate a significant gingival swelling, purulence.) Neck/C-Spine: COMMON NORMALS: no JVD Resp: COMMON NORMALS: normal respiratory effort and clear to auscultation bilaterally AUSCULTATION: clear to auscultation bilaterally Cardio: COMMON NORMALS: no JVD, regular rhythm, S1 normal heart sound, S2 normal heart sound and no murmurs RHYTHM: regular rhythm HEART SOUNDS: S1 normal and S2 normal GI: COMMON NORMALS: normal to inspection, nondistended, normoactive bowel sounds, soft to palpation and non-tender PALPATION: Yes soft Extremity: COMMON NORMALS: no joint enlargement and no pedal edema Neuro: COMMON NORMALS: moves all extremities Skin: COMMON NORMALS: no rashes or lesions noted GENERAL SKIN EXAM: no rashes or lesions noted and ecchymosis Discharge Data Data Completed and Pending: Completed Studies During Hospitalization Category Date Time Status CT facial bones w o con* [id number] Stat Cat Scan 09/19/19 10:46 Completed XR chest 1V ana maría ble [id number] Urgent Exams 09/18/19 20:43 Completed US renal BI* [id number] Routine Ultrasound 09/23/19 07:52 Completed Pending at discharge Category Date Time Status Basic Metabolic P kirby AM LABS Lab 09/25/19 04:00 Ordered Complete Blood Co unt w/Auto AM LABS Lab 09/25/19 04:00 Ordered Labs from last 24 hours 09/24/19 09/24/19 09/23/19 04:30 04:30 12:53 WBC 0.5 L* RBC 2.67 L Hgb 8.0 L Hct 24.2 L MCV 90.6 MCH 30.0 MCHC 33.1 RDW 13.2 Plt Count 26 L* MPV TNP Neut % (Auto) 24.6 Lymph % (Auto) 67.3 Burnet % (Auto) 6.1 Eos % (Auto) 0.0 Baso % (Auto) 0.0 Neut # (Auto) 0.1 L* Lymph # (Auto) 0.3 L Burnet # (Auto) 0.0 L Eos # (Auto) 0.0 Baso # (Auto) 0.0 Nucleated RBC % (a uto) 0 Nucleated RBCs # 0.0 Haptoglobin Sodium 133 L Potassium 4.2 Chloride 103 Carbon Dioxide 21 L Anion Gap 13.2 BUN 37 H Creatinine 1.3 H Glucose 93 Calculated Osmolal ity 273 L Calcium 8.5 Lactate Dehydrogen ase Ur Random Sodium 15 Ur Random Urea Nit rogn Urine Creatinine 111 09/23/19 09/23/19 12:53 01:45 WBC RBC Hgb Hct MCV MCH MCHC RDW Plt Count MPV Neut % (Auto) Lymph % (Auto) Burnet % (Auto) Eos % (Auto) Baso % (Auto) Neut # (Auto) Lymph # (Auto) Burnet # (Auto) Eos # (Auto) Baso # (Auto) Nucleated RBC % (a uto) Nucleated RBCs # Haptoglobin 77.0 Sodium Potassium Chloride Carbon Dioxide Anion Gap BUN Creatinine Glucose Calculated Osmolal ity Calcium Lactate Dehydrogen ase 150 Ur Random Sodium Ur Random Urea Nit rogn 824 Urine Creatinine Vitals: Last Vital Signs Temp 98 F 09/24/19 11:43 Pulse 90 09/24/19 11:43 Resp 18 09/24/19 11:43 BP 162/62 09/24/19 11:43 Pulse Ox 97 09/24/19 11:43 Discharge Plan Discharge Patient Disposition: Xfer SNF Condition: Stable Prescriptions: New amoxicillin-pot clavulanate 500-125 mg Tablet 1 tab PO TID Qty: 30 RF: 0 ciprofloxacin HCl 500 mg Tablet 500 mg PO Q18H Qty: 14 RF: 0 pantoprazole 40 mg Tablet,Delayed Release (Dr/Ec) 40 mg PO DAILY Qty: 30 RF: 0 folic acid 1 mg Tablet 1 mg PO DAILY Qty: 30 RF: 0 Continued hydrocodone-acetaminophen 10-325 mg tablet 10 - 325 tab PO TID PRN (Reason: Pain) RF: 0 ropinirole 0.5 mg tablet 0.5 mg PO BID RF: 0 ondansetron 4 mg tablet,disintegrating 4 mg PO Q8H PRN (Reason: Nausea) RF: 0 Milk of Magnesia 400 mg/5 mL Suspension 400 mg PO DAILY PRN (Reason: Constipation) RF: 0 escitalopram oxalate 20 mg tablet 20 mg PO DAILY RF: 0 calcium carbonate 500 mg calcium (1,250 mg) Tablet,Chewable 500 mg PO BID PRN (Reason: Heartburn) RF: 0 Changed bumetanide 2 mg tablet 1 mg PO DAILY Qty: 0 RF: 0 fentanyl 100 mcg/hr patch 72 hour 50 mcg topical Q72H Qty: 0 RF: 0 Discontinued clindamycin HCl 300 mg capsule See Rx Instructions .ROUTE .COMPLEX RF: 0 famotidine 20 mg tablet 20 mg PO BID RF: 0 Discharge Orders: Discharge Order (Routine); Ordered 09/24/19 Ordered By: Korey Hudson Other Ambulatory Orders: Complete Blood Count w/Auto (Routine) Timeframe: 3 Days Location: Determined by Patient Ordered By: Korey Hudson Referrals: [facility] [Outside] Tiff Lafleur MD [Primary Care Provider] - 4-7 days Martin Chavez MD [Hospitalist] - 4-7 days Discharge Diet: Regular Discharge Activity: Increase activity as tolerated and As per PT/OT instructions Activity Restrictions/Additional Instructions: Neutropenic precautions and neutropenic diet. Strict fall precautions. High bleeding risk with thrombocytopenia. Follow-up visit with Dr. Chavez in office to also reassess condition of periodontal infection, with possible referral to dentist depending on condition, as this would require platelet pheresis prior to any extraction. Bumetanide dose is decreased for now due to some dehydration while in the hospital. Mild acute kidney injury, which has improved. Discharge Attestations Time Spent in Discharge Care*: greater than 30 min Quality Metrics Clinical Quality Measures During this hospital stay, did patient experience: None Coding Level of Care Code Acute Vendor Quality Supervisor for Chg Fwd Diagnoses Anemia D61.818 Anemia type: bone marrow failure Bone marrow failure anemia type: pancytopenia, other Neutropenia D70.9 Periodontitis K05.30 AMS (altered mental status) R41.82 JADIEL (acute kidney injury) N17.9 Myelodysplastic syndrome D46.9 Chronic right hip pain M25.551; G89.29 Hypertension I10 Hypertension type: essential hypertension Chronic kidney disease, stage III (moderate) N18.3
[2019-09-24 13:03] VITALS: BP 162/62; PULSE 90; RESP 18; TEMP 36.6; O2SAT 97
[2019-09-24 15:31] VITALS: BP 162/62; PULSE 90; RESP 18; TEMP 36.6; O2SAT 97
== END 2019-09-24 15:00 | disposition skilled nursing facility (03) | DRG 812 ==
LOC: ER 21:09 → MEDSURG 09-19 01:06
PROVIDERS: Family Medicine; Admitting Provider Hospitalist; Emergency Provider Emergency Medicine; Family Provider Family Medicine; PCP Family Medicine; Visit Provider Internal Medicine
DX: D46.9 Myelodysplastic syndrome, unspecified (principal); D61.818 Other pancytopenia; N17.9 Acute kidney failure, unspecified; M25.551 Pain in right hip; N18.3 Chronic kidney disease, stage 3 (moderate); K04.7 Periapical abscess without sinus; D47.4 Osteomyelofibrosis; D63.0 Anemia in neoplastic disease; I12.9 Hypertensive chronic kidney disease with stage 1 through stage 4 chronic kidney disease, or unspecified chronic kidney disease; K21.9 Gastro-esophageal reflux disease without esophagitis; E05.90 Thyrotoxicosis, unspecified without thyrotoxic crisis or storm; Z87.891 Personal history of nicotine dependence
CPT/HCPCS: 12345; 36415; 36430; 70486; 71045; 76770; 76857; 80048; 80053; 81003; 82274; 82550; 82570; 82607; 82728; 82746; 83010; 83540; 83550; 83605; 83615; 83735; 84100; 84145; 84300; 84540; 85007; 85025; 85027; 85610; 85651; 85730; 86140; 86850; 86900; 86920; 87040; 93005; 96372; 96374; 96375; 97110; 97116; 97161; 97166; 97530; 97535; 99283; G0378; J1630; J2060; J2270; J2405; J3010; J7030; P9040; S0030

== ENCOUNTER 2019-10-21 11:28 | Outpatient (RCR) | payer OTHER, MEDICARE, MEDICAID, SELFPAY ==
[2019-09-27 13:06] LABS: Basophils % 2.6 %; Hematocrit 23.4 % (37.0-47.0); Hemoglobin 7.4 g/dL (11.5-15.3); Lymphocytes # 0.2 10^3/uL (0.8-4.8); Lymphocytes % 42.1 %; Mean Corpuscular HGB Conc 31.6 g/dL (30.0-36.0); Mean Corpuscular Volume 91.8 fL (81-99); Monocytes % 7.9 %; Neutrophils % 44.8 %; Nucleated Red Blood Cells % 0 %; Red Blood Count 2.55 10^6/uL (4.1-5.3)
[2019-09-27 14:31] LABS: Neutrophils # 0.2 10^3/uL (1.8-7.7); Platelet Count 23 10^3/cmm (130-400); White Blood Count 0.4 10^3/uL (4.0-10.0)
[2019-09-27 14:32] LABS: Slide Review Slide Review Perform
[2019-09-28] VITALS (10 sets, daily range): BP systolic 119–156; BP diastolic 61–66; PULSE 73–83; RESP 16; TEMP 36.4–37.2; O2SAT 98–99
[2019-10-04 15:31] LABS: Hematocrit 25.8 % (37.0-47.0); Hemoglobin 8.4 g/dL (11.5-15.3); Lymphocytes # 0.2 10^3/uL (0.8-4.8); Lymphocytes % 63.9 %; Mean Corpuscular HGB Conc 32.6 g/dL (30.0-36.0); Mean Corpuscular Hemoglobin 29.2 pg (28.0-34.0); Mean Corpuscular Volume 89.6 fL (81-99); Monocytes % 5.6 %; Neutrophils % 27.7 %; Nucleated Red Blood Cells % 0 %; Red Blood Count 2.88 10^6/uL (4.1-5.3); Red Cell Distribution Width 12.8 % (12.1-15.1)
[2019-10-04 16:06] LABS: Neutrophils # 0.1 10^3/uL (1.8-7.7); Platelet Count 27 10^3/cmm (130-400); White Blood Count 0.4 10^3/uL (4.0-10.0)
[2019-10-04 16:07] LABS: Slide Review Slide Review Perform
--- NOTE | 2019-10-06 07:24 | ONC FU_ITS ---
Dr. Chavez Patient Follow-Up Note Patient: Radha Boyd Unit #: [id number]: 1940 Dicatated By: Martin Chavez M.D.Date of Visit:October 05, 2019 Onc Med Follow-up/Prog Note Chief Complaint: Myelodysplasia/anemia. History of Present Illness: This is an 79 year-old woman with myelodysplasia, IPSS-R score 2.5, low risk. She has associated transfusion dependent anemia and associated iron overload. She had initially presented in 2010 with a mild anemia, hemoglobin at that time in the range of 10 g. Her white blood cell count was borderline low at 4800, but her platelet count was mildly elevated at 459,000. Bone marrow aspiration/biopsy in February 2011 showed mildly increased cellularity, estimated at 60-70%. There were increased megakaryocytes with associated dyspoiesis in the megakaryocytes and in the red cells. Iron stores were 1+. Blasts were estimated at 1%. The chromosome analysis was normal, and the FISH panel for myelodysplasia was negative. The findings were felt to be nonspecific, but suggestive of myeloproliferative/myelodysplastic disease. She did complete a course of parenteral iron replacement with Venofer in October 2012, but there was no improvement in the anemia. She also was given the option of trying an erythropoietin stimulating agent, but as she was not overtly symptomatic, she preferred to just monitor it with observation. Over a period of several years, her hemoglobin/hematocrit levels had declined very gradually, but remaining in the range of 8 to 9 g. She had developed some fatigue with it, but not significant enough in her opinion to warrant any treatment. In 2014 she had some further elevation of the platelet count and an increasing LDH level, though hemoglobin/hematocrit levels had remained stable. She was, though, showing some decline in performance status. She also complained of persistent pain in the right leg, from the groin to the knee. Her laboratory studies in January 2015 included a JAK2 gene mutation study, which was positive for the JAK2 V617F mutation. An MRI of the right hip in February showed abnormal signal with enhancement involving the right acetabulum, lateral femoral head, and joint capsule, which appeared to be on the basis of degenerative arthritis and acute superimposed inflammatory response. She underwent repeat bone marrow aspiration/biopsy on 04/05/2015. The marrow was hypercellular, with overall cellularity 75%, but focally packed in some areas up to 100%. There was significant megakaryocytic hyperplasia and megakaryocyte dyspoiesis. There was also evidence of dyserythropoiesis and granulocytes were noted to be hypogranular. Blasts were estimated at 2%. The chromosome analysis was normal and the FISH panel for MDS was negative. 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 Her calculated IPSS-R score was still in the low risk category at 2.5. With the worsening anemia, she definitely needed to start treatment. As her IPSS-R score was still in the low risk category, I opted to give her a trial of therapy with Revlimid and to then proceed to a demethylating agent, as necessary. We had some difficulty getting insurance approval for the Revlimid, but she eventually did start treatment on 06/07/2015 at a dose of 10 mg daily. Unfortunately, within a week she developed a bad rash and itching, severe enough that she did have to stop the medication on 06/16/2015. She subsequently started a trial of therapy with decitabine, with cycle 1 day 1 on 06/26/2015. She was able to tolerate it without any significant acute toxicity. Following her 1st cycle of decitabine she had developed persistent, severe granulocytopenia, which was not unexpected. She remained afebrile on antibiotic prophylaxis with Levaquin. She continued to require transfusions of PRBC at least every week, and she also did require a platelet pheresis. At day 29 her her granulocyte count was still only 100, and I did opt to give her a treatment delay. However, she did start cycle 2 as of 07/31/2015, with a CBC at that point showing hemoglobin at 8.1 g, white blood cell count 1300 with ANC 400, and platelet count 66,000. During subsequent follow-up, her ANC again dropped to 100, though she remained afebrile on antibiotic prophylaxis. She continued to require transfusions of packed red blood cells. Her platelet counts remained moderately decreased, but adequate. At cycle 2 day 29, there was no indication of improvement in her blood counts. She underwent bone marrow aspiration/biopsy on 09/06/2015. Interpretation was somewhat limited, as it was a dry tap. Cellularity was 30%. Megakaryocytes were noted to be increased with dyspoietic changes. The most significant change was the development of significant fibrosis, with strongly positive reticulin stain and strongly positive trichrome stain. With those findings, I recommended stopping the decitabine. She did consent to going to [facility] for a second opinion evaluation. She was seen at [facility] yesterday by Dr. Jennifer Quinn. Unfortunately, with her low blood counts, her further treatment options appear to be very limited. In particular, with the low platelet count she was not eligible for treatment with ruxolitinib. She did recommend that we consider repeating bone marrow aspiration/biopsy to reassess for possible leukemic transformation. During subsequent follow-up she was admitted several times with symptoms of diverticulitis. The episodes all resolved with antibiotic therapy and other conservative measures. A repeat MRI of the right hip on 06/06/2016 showed significant improvement in the marrow fatty replacement of the proximal femurs compared to the previous study in September 2015. There was significant abnormal marrow signal in the right femoral head. There was progression in the mild destructive and degenerative changes involving the right hip joint and there was mild progression of enhancement involving the acetabulum and synovium of the right hip, possibly related to progression of myelodysplastic disease. For a period of time she had shown some evidence of spontaneous recovery of her blood counts. She had still been requiring transfusion, but less frequently. There was significant improvement in her platelet count and in her granulocyte count. Following her visit in December 2016 she was given a prescription to start treatment with Exjade for the iron overload. After some delay she eventually did start taking it, but she stopped it within a short time because she felt she was getting too many phone calls about it. I had seen her for a follow-up visit on 12/26/2017. At that point she appeared significantly weaker and more short of breath. She had jugular venous distention. Clinically I had suspected that she was in heart failure, presumably from the iron overload, and I did have her start diuretic therapy. Echocardiogram showed adequate left ventricular ejection fraction of 55%, there was grade 2 diastolic dysfunction with moderately elevated filling pressures and there was moderately increased left atrial size. There was just mild mitral valve regurgitation and mild aortic valve stenosis. Her CT abdomen/pelvis showed increased cardiomegaly compared to previous study in February 2017, consistent with progressive cardiomyopathy. There was decreased attenuation of the periportal soft tissues suggestive of mild periportal fibrosis. There was evidence of axial skeletal osteosclerosis. She required admission to the hospital on 04/11/2018 for acute diastolic heart failure. She was discharged the following day, but on 04/13/2018 she returned to the emergency room for syncope in association with profound bradycardia. She was then admitted to [facility] in [place] where she underwent placement of permanent pacemaker. Following that admission she had temporary penitentiary placement for physical therapy/rehabilitation, and she eventually was able to get placed in [facility] for assisted living. During this time, she remained transfusion dependent. Her other medical illnesses include hypertension, hypercholesterolemia, and GERD. She has stage III chronic kidney disease. She also has a history of hyperthyroidism and history of depression. She underwent laparoscopic cholecystectomy in August 2012. She had upper GI endoscopy and colonoscopy prior to that procedure. In January 2013 she underwent repair of a ventral hernia which developed following the cholecystectomy. Prior surgeries have been limited to partial thyroidectomy for goiter in 1990 and removal of a skin cancer from the nose in 1999. She does not smoke or drink alcohol. Family history significant in that a brother was treated for renal cell cancer. INTERIM HISTORY: Following admission to [facility], she had continued decline in her performance status, in part due to her anemia and cardiac issues and in part due to progressive worsening of her right hip joint pain. The pain became severe enough that eventually did have her evaluated by Dr. Pina for possible palliative surgery/hip replacement. CT of the right hip on 02/09/2019 did confirm progressive severe degenerative arthritic changes of the right hip joint. Ultimately she was offered the option of undergoing hip replacement, but she then opted against surgery. During followup she continued symptomatic/supporitve care. She remained transfusion dependent. On 09/19/2019 she was admitted to the hospital with increased weakness and confusion. Her hemoglobin was a little lower at 7.3 g, but not dramatically worse. Her neutrophil count had declined to 100, but she was not febrile. Her platelet count also had declined, to 30,000. She had no active bleeding. It was presumed that at least some component of the confusion was related to her opiate pain medication, which was problematic, as she continued to have significant pain in the right hip area. At discharge she was transferred to [facility]. She is seen for a followup visit. She has not been feeling as good since she has been in the penitentiary. Her main complaint is that she has been having severe nausea. She thinks this may be related to medication. The penitentiary staff indicates that she is still having significant confusion. However, at least at the time of this visit, her cognitive function is better compared to her status in the hospital. She still has very limited activity. ECOG score is 3. She says her appetite is not very good. She has not had fever or night sweats. She says she has had some chills. She has some shortness of breath. She does not complain of cough and she has not been having chest pain. She has had diarrhea since she has been in the penitentiary. She has bladder incontinence. She continues to have significant pain in the right hip area. She does not complain of headache or dizziness, and she has no focal neurologic symptoms. Medications: Arctic Relief Pain Relieving 1 (4 %) Gel (jelly) Topical four times a day PRN, Bumex 1 (1 mg) Tablet Oral daily, Calcium Carbonate 1 Tablet (of 500 mg) Oral b.i.d., Duragesic-25 1 Patch(es) (of 50 mcg/hr) Patch 72 Hr Transdermal q 72 hours, Escitalopram Oxalate 1 Tablet (of 20 mg) Oral daily, Fleet Enema Enema Rectal PRN, Folic Acid 1 Tablet (of 1 mg) Oral daily, Hydrocodone-Acetaminophen 1 Tablet (of 10-325 mg) Oral t.i.d. PRN, Milk of Magnesia 1 (400 mg/5mL) Suspension Oral PRN, Ondansetron 1 Tablet (of 4 mg) Oral q 8 hours, Pantoprazole Sodium 1 Tablet (of 40 mg) Tablet, enteric coated Oral daily, Requip 1 Tablet (of 0.5 mg) Oral b.i.d. Allergies: Amoxicillin, Codeine Sulfate, contrast dye, Lenalidoide , and Revlimid. Review of Systems: Constitutional - She has very limited activity. She is mainly sedentary. Her appetite is not very good. No fever or night sweats. She sometimes has chills. ECOG score is 3, ENMT - No sinus congestion/drainage. She has a bad tooth. No sore throat or difficulty swallowing, Hematologic/Lymphatic - She has some bruising, Respiratory - She has some shortness of breath. No cough. No pleuritic pain or hemoptysis, Cardiovascular - No angina pain. No palpitations, Gastrointestinal - She has been having a lot of nausea, but no vomiting. She thinks this may be due to medication. No heartburn or acid reflux. She says she has been having diarrhea since she has been in [facility]. No blood in the stool or black stools, Genitourinary (F) - No dysuria or hematuria. She has urinary frequency and incontinence, Musculoskeletal - She has severe pain in her right hip, Integumentary - No skin complications, Neurologic - No headache or dizziness. No numbness/paresthesias or other focal neurologic symptoms. She does complain of having muscle cramping, Psychiatric - She has had some depression. The penitentiary reports that she is still having significant confusion. She has not been sleeping well. Vital Signs: Performed on October 05, 2019 09:14 Height - 62.00 in Temperature - 98.4 F Pulse - 81 /min Respiration - 18 /min BP - 118/40 mm(hg) O2 Sat - 100 % Pain - 0 Physical Examination: Constitutional - She appears generally weak, but she actually does look a little better compared to her status in the hospital, Eyes - Sclerae nonicteric. Conjunctivae clear, ENMT - She has a bad right lower molar tooth. There are no other lesions noted in the oral cavity, Hematologic/Lymphatic - No cervical, clavicular, or axillary adenopathy, Respiratory - Lungs sound clear, Cardiovascular - Heart rhythm is regular. There is a III/ systolic murmur. There is no gallop or rub noted, Abdomen - Mildly distended. Liver appears to be significantly enlarged. Spleen is not palpable. There is no abdominal mass or ascites noted and there is no inguinal adenopathy, Extremities - Mild edema. She has multiple ecchymoses/purpuric lesions, Integumentary - No skin eruption, Neurologic - No focal neurologic deficits noted. Lab/Imaging: Test performed on September 27, 2019 10:10 WBC 0.4 10 3/uL RBC 2.55 10 6/uL HGB 7.4 g/dL HCT 23.4 % MCV 91.8 fL MCH 29.0 pg MCHC 31.6 g/dL RDW 13.0 % Platelet Count 23 10 3/cmm MPV 15.0 fL Neutrophils 0.2 10 3/uL Lymphocytes 0.2 10 3/uL Monocytes 0.0 10 3/uL Eosinophils 0.0 10 3/uL Basophils 0.0 10 3/uL Neutrophil % 44.8 % Lymphocyte % 42.1 % Monocyte % 7.9 % Eosinophil % 0.0 % Basophils % 2.6 % CBC Slide Review Slide Review Perform SLIDE REVIEW AGREES WITH AUTO DIFF. Impression: 1. Patient with moderately severe anemia along with a mildly decreased white blood cell count and a mildly increased platelet count. The initial bone marrow findings in February 2011 were consistent with myelodysplasia. She opted not to attempt any treatment, as she really had not been all that symptomatic. 2. In December 2014 she had a significant increase in her platelet count and her LDH level also increased significantly. She then had a drop in her hemoglobin/hematocrit levels. A JAK2 gene mutation study was positive for the JAK2 V617F mutation. Along with the changes in her blood count, she had a significant decline in her performance status, and she also became transfusion dependent. 3. Repeat bone marrow aspiration/biopsy on 04/05/2015 continued to show findings consistent with myeloproliferative disease/myelodysplasia, though with no identifiable cytogenetic changes. Her calculated IPSS-R score was 2.5, low risk category. 4. A trial of Revlimid at 10 mg daily was initiated on 06/07/2015. Treatment was stopped as of 06/16/2015 due to multiple side effects, most significantly a skin eruption. 5. She then started treatment with decitabine, cycle 1 day 1 on 06/26/2015. She subsequently developed severe, persistent granulocytopenia, and she also remained transfusion dependent. 6. She received a second cycle of decitabine starting 07/31/2015. During subsequent follow-up she has had no evidence of response, as she has continued to have severe granulocytopenia and moderately severe thrombocytopenia, and she remained transfusion dependent. 7. She had repeat bone marrow aspiration/biopsy on 09/06/2015. Interpretation was somewhat limited, as it was a dry tap. Cellularity was 30%. Megakaryocytes were noted to be increased with dyspoietic changes. The most significant change was the development of significant fibrosis, with strongly positive reticulin stain and strongly positive trichrome stain. 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 Due to her low platelet count it was felt that she was not appropriate for treatment with ruxolitinib. 8. She had ongoing complaint of fairly severe pain in the right leg, from the groin down to the knee. MRI of the right hip showed findings which appeared most consistent with severe degenerative arthritis. 9. She has had several hospital admissions for symptoms of diverticulitis. These have resolved with conservative management. 10. She had evidence of transfusion associated iron overload, but she declined to treatment for it. 11. She has CT evidence of gradually enlarging goiter with extension into the mediastinum. In November 2017 she had presented to the emergency room with fullness in her throat and difficulty swallowing. She was also having shortness of breath and cough. In addition, during the preceding month she had developed increasing lower extremity edema. By clinical evaluation she appeared to be in heart failure, and a subsequent echocardiogram did show evidence of grade [address] abdomen/pelvis showed increasing cardiomegaly since February 2017, consistent with progressive cardiomyopathy. There were also findings in the liver suggestive of periportal fibrosis. 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 In March 2018 she required admission to the hospital for acute diastolic congestive heart failure, and she then required placement of permanent pacemaker for syncope in association with profound bradycardia. During subsequent follow-up she continued to require transfusion on a regular basis, and there was a continued gradual decline in her performance status. She eventually was admitted to [facility] for assisted living. Initially she did show some improvement in her quality of life. However, it has since then been declining, in large part due to the worsening pain in the right hip. She was evaluated by Dr. Pina, and she was offered the option of undergoing palliative hip replacement, but she ultimately opted against surgery. During followup she has continued on symptomatic/supportive care. She has remained transfusion dependent. She continues to have fairly marginal performance status, but her main complaint is that the right hip pain is continued to worsen even with her current opiate pain regimen. Plan: Her blood counts will be monitored weekly, as she still wants to continue transfusion support. Her fentanyl dosage has been reduced to 50 mcg/hr. I will look into the possibility of changing her breakthrough pain medication, as the hydrocodone would be the most likely cause for the nausea. As a precaution, I will also stop the ropinirole. I did have another discussion with her regarding her intermediate outlook and management, and she is agreeable now to a have a DNR order in place. Signed By: Martin Chavez M.D. <<Signature on File>>
[2019-10-11 19:51] LABS: Lymphocytes # 0.3 10^3/uL (0.8-4.8); Lymphocytes % 53.8 %; Mean Corpuscular HGB Conc 31.5 g/dL (30.0-36.0); Mean Corpuscular Hemoglobin 28.8 pg (28.0-34.0); Mean Corpuscular Volume 91.3 fL (81-99); Monocytes % 3.8 %; Neutrophils % 42.4 %; Nucleated Red Blood Cells % 0 %; Red Blood Count 2.19 10^6/uL (4.1-5.3); Red Cell Distribution Width 13.2 % (12.1-15.1)
[2019-10-11 21:22] LABS: White Blood Count 0.5 10^3/uL (4.0-10.0)
[2019-10-11 21:23] LABS: Hemoglobin 6.3 g/dL (11.5-15.3); Neutrophils # 0.2 10^3/uL (1.8-7.7); Platelet Count 21 10^3/cmm (130-400)
[2019-10-12] VITALS (10 sets, daily range): BP systolic 112–150; BP diastolic 57–70; PULSE 67–98; RESP 16; TEMP 36.3–36.9; O2SAT 96–99
[2019-10-12 00:37] LABS: Alanine Aminotransferase 27 U/L (0-33); Albumin Level 3.3 g/dL (3.5-5.2); Alkaline Phosphatase 128 IU/L (35-105); Anion Gap 13.6 (5-19); Aspartate Amino Transferase 21 U/L (0-32); Blood Urea Nitrogen 30 mg/dL (8-23); Calcium 8.4 mg/dL (8.5-10.5); Carbon Dioxide 26 mmol/L (22-29); Chloride 100 mmol/L (98-107); Glucose 92 mg/dL (65-115); Osmolality Calculated 277 mOsm/kg (285-295); Potassium 4.6 mmol/L (3.5-5.1); Sodium 135 mmol/L (136-145); Total Bilirubin 0.8 mg/dL (0.15-1.2); Total Protein 6.3 g/dL (6.6-8.7)
[2019-10-12] MEDS: acetaminophen 325 mg Tablet 650 MG PO (12:08)
[2019-10-12] MEDS: sodium chloride 0.9% 250 ML 999 ML IV (12:08)
[2019-10-12] MEDS: diphenhydrAMINE 25 mg Capsule PO (12:08)
[2019-10-12] MEDS: FUROsemide 10 mg/mL SDV 2mL 20 MG IV (14:05)
[2019-10-20 16:13] LABS: Lymphocytes # 0.3 10^3/uL (0.8-4.8); Lymphocytes % 61.2 %; Mean Corpuscular HGB Conc 30.9 g/dL (30.0-36.0); Mean Corpuscular Hemoglobin 27.9 pg (28.0-34.0); Mean Corpuscular Volume 90.4 fL (81-99); Monocytes % 6.1 %; Neutrophils % 28.6 %; Nucleated Red Blood Cells % 0 %; Platelet Count 32 10^3/cmm (130-400); Red Blood Count 2.29 10^6/uL (4.1-5.3); Red Cell Distribution Width 13.4 % (12.1-15.1)
[2019-10-20 16:23] LABS: Hematocrit 20.7 % (37.0-47.0); Hemoglobin 6.4 g/dL (11.5-15.3); White Blood Count 0.5 10^3/uL (4.0-10.0)
[2019-10-20 19:10] LABS: Slide Review Slide Review Perform
[2019-10-21] VITALS (7 sets, daily range): BP systolic 124–138; BP diastolic 44–50; PULSE 69–76; RESP 18; TEMP 36.8–37.2; O2SAT 98–99
[2019-10-21] MEDS: acetaminophen 325 mg Tablet 650 MG PO (09:30)
[2019-10-21] MEDS: sodium chloride 0.9% 250 ML 999 ML IV (09:30)
[2019-10-21] MEDS: FUROsemide 10 mg/mL SDV 2mL 20 MG IV (14:59)
[2019-10-21] MEDS: diphenhydrAMINE 25 mg Capsule PO (15:00)
== END 2019-10-24 23:59 | disposition home or self-care (01) ==
LOC: ONCMED 11:28
PROVIDERS: Internal Medicine Hematology & Oncology; Family Provider Family Medicine; PCP Family Medicine; Visit Provider Internal Medicine Medical Oncology
DX: E83.111 Hemochromatosis due to repeated red blood cell transfusions (principal); D46.Z Other myelodysplastic syndromes; D64.9 Anemia, unspecified; F41.9 Anxiety disorder, unspecified; F32.9 Major depressive disorder, single episode, unspecified; K21.9 Gastro-esophageal reflux disease without esophagitis; E78.5 Hyperlipidemia, unspecified; E03.9 Hypothyroidism, unspecified; Z92.21 Personal history of antineoplastic chemotherapy; Z66 Do not resuscitate
CPT/HCPCS: 36415; 36430; 80053; 85025; 86850; 86900; 86920; 99214; J1940; J7050; P9040

== ENCOUNTER 2019-11-22 06:55 | Outpatient (RCR) | payer MEDICARE, MEDICAID, SELFPAY ==
[2019-10-25 12:36] LABS: Basophils % 1.6 %; Hematocrit 25.4 % (37.0-47.0); Hemoglobin 8.2 g/dL (11.5-15.3); Lymphocytes # 0.3 10^3/uL (0.8-4.8); Lymphocytes % 54.8 %; Mean Corpuscular HGB Conc 32.3 g/dL (30.0-36.0); Mean Corpuscular Hemoglobin 29.4 pg (28.0-34.0); Monocytes % 6.5 %; Neutrophils % 35.5 %; Nucleated Red Blood Cells % 0 %; Platelet Count 38 10^3/cmm (130-400); Red Blood Count 2.79 10^6/uL (4.1-5.3); Red Cell Distribution Width 13.6 % (12.1-15.1)
[2019-10-25 13:16] LABS: Neutrophils # 0.2 10^3/uL (1.8-7.7); Slide Review Slide Review Perform; White Blood Count 0.6 10^3/uL (4.0-10.0)
[2019-11-01] VITALS (10 sets, daily range): BP systolic 118–136; BP diastolic 57–69; PULSE 72–80; RESP 18; TEMP 36.9–37.3; O2SAT 96–98
[2019-11-01 08:59] LABS: Basophils % 1.1 %; Hematocrit 21.2 % (37.0-47.0); Hemoglobin 6.6 g/dL (11.5-15.3); Lymphocytes # 0.5 10^3/uL (0.8-4.8); Lymphocytes % 57.3 %; Mean Corpuscular HGB Conc 31.1 g/dL (30.0-36.0); Mean Corpuscular Hemoglobin 29.7 pg (28.0-34.0); Mean Corpuscular Volume 95.5 fL (81-99); Monocytes # 0.1 10^3/uL (0.2-0.9); Monocytes % 5.6 %; Neutrophils % 30.4 %; Nucleated Red Blood Cells % 0 %; Red Blood Count 2.22 10^6/uL (4.1-5.3); Red Cell Distribution Width 14.4 % (12.1-15.1)
[2019-11-01 09:12] LABS: Alanine Aminotransferase 21 U/L (0-33); Albumin Level 3.2 g/dL (3.5-5.2); Alkaline Phosphatase 124 IU/L (35-105); Anion Gap 14.7 (5-19); Aspartate Amino Transferase 22 U/L (0-32); Blood Urea Nitrogen 33 mg/dL (8-23); Calcium 9.1 mg/dL (8.5-10.5); Carbon Dioxide 27 mmol/L (22-29); Chloride 98 mmol/L (98-107); Globulin 3.5 g/dL (1.3-4.6); Glucose 91 mg/dL (65-115); Osmolality Calculated 277 mOsm/kg (285-295); Potassium 4.7 mmol/L (3.5-5.1); Sodium 135 mmol/L (136-145); Total Bilirubin 1.3 mg/dL (0.15-1.2); Total Protein 6.7 g/dL (6.6-8.7)
[2019-11-01 09:16] LABS: Neutrophils # 0.3 10^3/uL (1.8-7.7); Platelet Count 29 10^3/cmm (130-400); White Blood Count 0.9 10^3/uL (4.0-10.0)
[2019-11-01] MEDS: acetaminophen 325 mg Tablet 650 MG PO (11:50)
[2019-11-01] MEDS: sodium chloride 0.9% 250 ML 999 ML IV (11:50)
[2019-11-01] MEDS: FUROsemide 10 mg/mL SDV 2mL 20 MG IV (16:52)
[2019-11-01] MEDS: diphenhydrAMINE 25 mg Capsule PO (16:52)
--- NOTE | 2019-11-05 12:28 | ONC FU_ITS ---
Dr. Chavez Patient Follow-Up Note Patient: Radha Boyd Unit #: [id number]: [id number] Dicatated By: Martin Chavez M.D.Date of Visit:Nov 01, 2019 Onc Med Follow-up/Prog Note Chief Complaint: Myelodysplasia/anemia. History of Present Illness: This is an 79 year-old woman with myelodysplasia, IPSS-R score 2.5, low risk. She has associated transfusion dependent anemia and associated iron overload. She had initially presented in 2010 with a mild anemia, hemoglobin at that time in the range of 10 g. Her white blood cell count was borderline low at 4800, but her platelet count was mildly elevated at 459,000. Bone marrow aspiration/biopsy in February 2011 showed mildly increased cellularity, estimated at 60-70%. There were increased megakaryocytes with associated dyspoiesis in the megakaryocytes and in the red cells. Iron stores were 1+. Blasts were estimated at 1%. The chromosome analysis was normal, and the FISH panel for myelodysplasia was negative. The findings were felt to be nonspecific, but suggestive of myeloproliferative/myelodysplastic disease. She did complete a course of parenteral iron replacement with Venofer in October 2012, but there was no improvement in the anemia. She also was given the option of trying an erythropoietin stimulating agent, but as she was not overtly symptomatic, she preferred to just monitor it with observation. Over a period of several years, her hemoglobin/hematocrit levels had declined very gradually, but remaining in the range of 8 to 9 g. She had developed some fatigue with it, but not significant enough in her opinion to warrant any treatment. In 2014 she had some further elevation of the platelet count and an increasing LDH level, though hemoglobin/hematocrit levels had remained stable. She was, though, showing some decline in performance status. She also complained of persistent pain in the right leg, from the groin to the knee. Her laboratory studies in January 2015 included a JAK2 gene mutation study, which was positive for the JAK2 V617F mutation. An MRI of the right hip in February showed abnormal signal with enhancement involving the right acetabulum, lateral femoral head, and joint capsule, which appeared to be on the basis of degenerative arthritis and acute superimposed inflammatory response. She underwent repeat bone marrow aspiration/biopsy on 04/05/2015. The marrow was hypercellular, with overall cellularity 75%, but focally packed in some areas up to 100%. There was significant megakaryocytic hyperplasia and megakaryocyte dyspoiesis. There was also evidence of dyserythropoiesis and granulocytes were noted to be hypogranular. Blasts were estimated at 2%. The chromosome analysis was normal and the FISH panel for MDS was negative. 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 Her calculated IPSS-R score was still in the low risk category at 2.5. With the worsening anemia, she definitely needed to start treatment. As her IPSS-R score was still in the low risk category, I opted to give her a trial of therapy with Revlimid and to then proceed to a demethylating agent, as necessary. We had some difficulty getting insurance approval for the Revlimid, but she eventually did start treatment on 06/07/2015 at a dose of 10 mg daily. Unfortunately, within a week she developed a bad rash and itching, severe enough that she did have to stop the medication on 06/16/2015. She subsequently started a trial of therapy with decitabine, with cycle 1 day 1 on 06/26/2015. She was able to tolerate it without any significant acute toxicity. Following her 1st cycle of decitabine she had developed persistent, severe granulocytopenia, which was not unexpected. She remained afebrile on antibiotic prophylaxis with Levaquin. She continued to require transfusions of PRBC at least every week, and she also did require a platelet pheresis. At day 29 her her granulocyte count was still only 100, and I did opt to give her a treatment delay. However, she did start cycle 2 as of 07/31/2015, with a CBC at that point showing hemoglobin at 8.1 g, white blood cell count 1300 with ANC 400, and platelet count 66,000. During subsequent follow-up, her ANC again dropped to 100, though she remained afebrile on antibiotic prophylaxis. She continued to require transfusions of packed red blood cells. Her platelet counts remained moderately decreased, but adequate. At cycle 2 day 29, there was no indication of improvement in her blood counts. She underwent bone marrow aspiration/biopsy on 09/06/2015. Interpretation was somewhat limited, as it was a dry tap. Cellularity was 30%. Megakaryocytes were noted to be increased with dyspoietic changes. The most significant change was the development of significant fibrosis, with strongly positive reticulin stain and strongly positive trichrome stain. With those findings, I recommended stopping the decitabine. She did consent to going to [facility] for a second opinion evaluation. She was seen at [facility] yesterday by Dr. Jennifer Quinn. Unfortunately, with her low blood counts, her further treatment options appear to be very limited. In particular, with the low platelet count she was not eligible for treatment with ruxolitinib. She did recommend that we consider repeating bone marrow aspiration/biopsy to reassess for possible leukemic transformation. During subsequent follow-up she was admitted several times with symptoms of diverticulitis. The episodes all resolved with antibiotic therapy and other conservative measures. A repeat MRI of the right hip on 06/06/2016 showed significant improvement in the marrow fatty replacement of the proximal femurs compared to the previous study in September 2015. There was significant abnormal marrow signal in the right femoral head. There was progression in the mild destructive and degenerative changes involving the right hip joint and there was mild progression of enhancement involving the acetabulum and synovium of the right hip, possibly related to progression of myelodysplastic disease. For a period of time she had shown some evidence of spontaneous recovery of her blood counts. She had still been requiring transfusion, but less frequently. There was significant improvement in her platelet count and in her granulocyte count. Following her visit in December 2016 she was given a prescription to start treatment with Exjade for the iron overload. After some delay she eventually did start taking it, but she stopped it within a short time because she felt she was getting too many phone calls about it. I had seen her for a follow-up visit on 12/26/2017. At that point she appeared significantly weaker and more short of breath. She had jugular venous distention. Clinically I had suspected that she was in heart failure, presumably from the iron overload, and I did have her start diuretic therapy. Echocardiogram showed adequate left ventricular ejection fraction of 55%, there was grade 2 diastolic dysfunction with moderately elevated filling pressures and there was moderately increased left atrial size. There was just mild mitral valve regurgitation and mild aortic valve stenosis. Her CT abdomen/pelvis showed increased cardiomegaly compared to previous study in February 2017, consistent with progressive cardiomyopathy. There was decreased attenuation of the periportal soft tissues suggestive of mild periportal fibrosis. There was evidence of axial skeletal osteosclerosis. She required admission to the hospital on 04/11/2018 for acute diastolic heart failure. She was discharged the following day, but on 04/13/2018 she returned to the emergency room for syncope in association with profound bradycardia. She was then admitted to [facility] in [place] where she underwent placement of permanent pacemaker. Following that admission she had [facility] [place] [facility] for physical therapy/rehabilitation, and she eventually was able to get placed in [facility] for assisted living. During this time, she remained transfusion dependent. Her other medical illnesses include hypertension, hypercholesterolemia, and GERD. She has stage III chronic kidney disease. She also has a history of hyperthyroidism and history of depression. She underwent laparoscopic cholecystectomy in August 2012. She had upper GI endoscopy and colonoscopy prior to that procedure. In January 2013 she underwent repair of a ventral hernia which developed following the cholecystectomy. Prior surgeries have been limited to partial thyroidectomy for goiter in 1990 and removal of a skin cancer from the nose in 1999. She does not smoke or drink alcohol. Family history significant in that a brother was treated for renal cell cancer. INTERIM HISTORY: Following admission to [facility], she had continued decline in her performance status, in part due to her anemia and cardiac issues and in part due to progressive worsening of her right hip joint pain. The pain became severe enough that eventually did have her evaluated by Dr. Pian for possible palliative surgery/hip replacement. CT of the right hip on 02/09/2019 did confirm progressive severe degenerative arthritic changes of the right hip joint. Ultimately she was offered the option of undergoing hip replacement, but she then opted against surgery. During followup she continued symptomatic/supporitve care. She remained transfusion dependent. On 09/19/2019 she was admitted to the hospital with increased weakness and confusion. Her hemoglobin was a little lower at 7.3 g, but not dramatically worse. Her neutrophil count had declined to 100, but she was not febrile. Her platelet count also had declined, to 30,000. She had no active bleeding. It was presumed that at least some component of the confusion was related to her opiate pain medication, which was problematic, as she continued to have significant pain in the right hip area. At discharge she was transferred to [facility]. She is seen for a followup visit. She continues to have very limited activity, mainly due to pain in her right hip. She also is having pain in her neck, and she complains that both places pop and crack. Her pain is being controlled pretty well with medication. She is still able to ambulate short distances. Her ECOG score is 3. Her appetite is OK, and her nausea is better now. She has no fever or night sweats. She has shortness of breath when her blood count is low, and she has tightness in her chest. Bowel function has been OK. She has bladder incontinence. She has no focal neurologic symptoms. Medications: Acetaminophen Extra Strength 2 Tablet (of 325 mg) Oral q 6 hours PRN, Bisacodyl 1 Suppository (of 10 mg) Rectal PRN, Bumex 1 (1 mg) Tablet Oral daily, Calcium Carbonate 1 Tablet (of 500 mg) Oral b.i.d., Duragesic-25 1 Patch(es) (of 50 mcg/hr) Patch 72 Hr Transdermal q 72 hours, Durezol 1 Drop(s) (of 0.05 %) Emulsion Ophthalmic, Escitalopram Oxalate 1 Tablet (of 20 mg) Oral daily, Fleet Enema Enema Rectal PRN, Folic Acid 1 Tablet (of 1 mg) Oral daily, HYDROmorphone HCl 2 Tablet (of 2 mg) Oral four times a day, Milk of Magnesia 1 (400 mg/5mL) Suspension Oral PRN, Ondansetron 1 Tablet (of 4 mg) Oral q 8 hours, Pantoprazole Sodium 1 Tablet (of 40 mg) Tablet, enteric coated Oral daily, Reglan 1 Tablet (of 5 mg) Oral t.i.d. PRN, Requip 1 Tablet (of 0.5 mg) Oral b.i.d. Allergies: Amoxicillin, Codeine Sulfate, contrast dye, Lenalidoide , and Revlimid. Review of Systems: Constitutional - She still has limited actvity, but she is able to ambulate short distances. Appetite is OK. No fever, night sweats, or hot flashes. ECOG score is 3, ENMT - No sinus congestion/drainage. No mouth sores. No sore throat or difficulty swallowing, Hematologic/Lymphatic - She has easy bruising, Respiratory - She has shortness of breath when her blood count is low. No cough. No pleuritic pain or hemoptysis, Cardiovascular - She has some tightness in her chest. No palpitations, Gastrointestinal - Her nausea is better. No heartburn or acid reflux. Her bowels have been OK. No blood in the stool or black stools, Genitourinary (F) - No dysuria or hematuria. She has bladder incontinence, Musculoskeletal - She has pain in her right hip and in her neck. She pops and cracks in both places, Integumentary - No skin rash, Neurologic - No headache or dizziness. No numbness or tingling. No other focal neurologic symptoms, Psychiatric - No anxiety or depression. No insomnia. Vital Signs: Blood pressure 121/56, pulse 74, respirations 18, temp 98.7 degrees, oxygen saturation 96%. Physical Examination: Constitutional - She looks a little better generally, Eyes - Sclerae nonicteric. Conjunctivae clear, ENMT - There are no lesions noted in the oral cavity, Hematologic/Lymphatic - No cervical, clavicular, or axillary adenopathy, Respiratory - Lungs sound clear, Cardiovascular - Heart rhythm is regular. There is a III/ systolic murmur. There is no gallop or rub noted, Abdomen - Mildly distended. Liver is enlarged. Spleen is not palpable. There is no abdominal mass or ascites noted and there is no inguinal adenopathy, Extremities - Mild edema. She has scattered ecchymoses, Integumentary - No skin eruption, Neurologic - No focal neurologic deficits noted. Lab/Imaging: Test performed on Oct 25, 2019 11:15 WBC 0.6 10 3/uL RBC 2.79 10 6/uL HGB 8.2 g/dL HCT 25.4 % MCV 91.0 fL MCH 29.4 pg MCHC 32.3 g/dL RDW 13.6 % Platelet Count 38 10 3/cmm Neutrophils 0.2 10 3/uL Lymphocytes 0.3 10 3/uL Monocytes 0.0 10 3/uL Eosinophils 0.0 10 3/uL Basophils 0.0 10 3/uL Neutrophil % 35.5 % Lymphocyte % 54.8 % Monocyte % 6.5 % Eosinophil % 0.0 % Basophils % 1.6 % CBC Slide Review Slide Review Perform Impression: 1. Patient with moderately severe anemia along with a mildly decreased white blood cell count and a mildly increased platelet count. The initial bone marrow findings in February 2011 were consistent with myelodysplasia. She opted not to attempt any treatment, as she really had not been all that symptomatic. 2. In December 2014 she had a significant increase in her platelet count and her LDH level also increased significantly. She then had a drop in her hemoglobin/hematocrit levels. A JAK2 gene mutation study was positive for the JAK2 V617F mutation. Along with the changes in her blood count, she had a significant decline in her performance status, and she also became transfusion dependent. 3. Repeat bone marrow aspiration/biopsy on 04/05/2015 continued to show findings consistent with myeloproliferative disease/myelodysplasia, though with no identifiable cytogenetic changes. Her calculated IPSS-R score was 2.5, low risk category. 4. A trial of Revlimid at 10 mg daily was initiated on 06/07/2015. Treatment was stopped as of 06/16/2015 due to multiple side effects, most significantly a skin eruption. 5. She then started treatment with decitabine, cycle 1 day 1 on 06/26/2015. She subsequently developed severe, persistent granulocytopenia, and she also remained transfusion dependent. 6. She received a second cycle of decitabine starting 07/31/2015. During subsequent follow-up she has had no evidence of response, as she has continued to have severe granulocytopenia and moderately severe thrombocytopenia, and she remained transfusion dependent. 7. She had repeat bone marrow aspiration/biopsy on 09/06/2015. Interpretation was somewhat limited, as it was a dry tap. Cellularity was 30%. Megakaryocytes were noted to be increased with dyspoietic changes. The most significant change was the development of significant fibrosis, with strongly positive reticulin stain and strongly positive trichrome stain. 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 Due to her low platelet count it was felt that she was not appropriate for treatment with ruxolitinib. 8. She had ongoing complaint of fairly severe pain in the right leg, from the groin down to the knee. MRI of the right hip showed findings which appeared most consistent with severe degenerative arthritis. 9. She has had several hospital admissions for symptoms of diverticulitis. These have resolved with conservative management. 10. She had evidence of transfusion associated iron overload, but she declined to treatment for it. 11. She has CT evidence of gradually enlarging goiter with extension into the mediastinum. In November 2017 she had presented to the emergency room with fullness in her throat and difficulty swallowing. She was also having shortness of breath and cough. In addition, during the preceding month she had developed increasing lower extremity edema. By clinical evaluation she appeared to be in heart failure, and a subsequent echocardiogram did show evidence of grade [address] abdomen/pelvis showed increasing cardiomegaly since February 2017, consistent with progressive cardiomyopathy. There were also findings in the liver suggestive of periportal fibrosis. 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 In March 2018 she required admission to the hospital for acute diastolic congestive heart failure, and she then required placement of permanent pacemaker for syncope in association with profound bradycardia. During subsequent follow-up she continued to require transfusion on a regular basis, and there was a continued gradual decline in her performance status. She eventually was admitted to [facility] for assisted living. Initially she did show some improvement in her quality of life. However, it has since then been declining, in large part due to the worsening pain in the right hip. She was evaluated by Dr. Pina, and she was offered the option of undergoing palliative hip replacement, but she ultimately opted against surgery. During followup she has continued on symptomatic/supportive care. She has remained transfusion dependent. She continues to have limited activity due to pain in her right hip. She also now is having more pain in her neck. Her symptoms are pretty well controlled with medication, but her overall condition and prognosis are poor. Plan: She is being transfused PRBC again today. Her blood count will be monitored weekly and she will be transfused again as needed. Her Lexapro dosage is being decreased because of potential interaction with metoclopramide. Her medications otherwise remain the same. Signed By: Martin Chavez M.D. <<Signature on File>>
[2019-11-09] VITALS (10 sets, daily range): BP systolic 124–168; BP diastolic 56–71; PULSE 71–91; RESP 16–18; TEMP 35.6–36.6; O2SAT 97–99
[2019-11-09 09:54] LABS: Basophils % 1.9 %; Hemoglobin 6.7 g/dL (11.5-15.3); Lymphocytes # 0.3 10^3/uL (0.8-4.8); Lymphocytes % 59.3 %; Mean Corpuscular HGB Conc 32.7 g/dL (30.0-36.0); Mean Corpuscular Hemoglobin 30.7 pg (28.0-34.0); Monocytes % 5.6 %; Neutrophils % 33.2 %; Nucleated Red Blood Cells % 0 %; Platelet Count 31 10^3/cmm (130-400); Red Blood Count 2.18 10^6/uL (4.1-5.3); Red Cell Distribution Width 13.9 % (12.1-15.1)
[2019-11-09 10:27] LABS: Hematocrit 20.5 % (37.0-47.0); Neutrophils # 0.2 10^3/uL (1.8-7.7); White Blood Count 0.5 10^3/uL (4.0-10.0)
[2019-11-09] MEDS: acetaminophen 325 mg Tablet 650 MG PO (11:25)
[2019-11-09] MEDS: diphenhydrAMINE 25 mg Capsule PO (11:25)
[2019-11-09] MEDS: sodium chloride 0.9% 250 ML 999 ML IV (11:28)
[2019-11-09] MEDS: FUROsemide 10 mg/mL SDV 2mL 20 MG IV (13:11)
[2019-11-15] VITALS (8 sets, daily range): BP systolic 133–158; BP diastolic 55–64; PULSE 70–78; RESP 16–18; TEMP 37.1–37.2; O2SAT 97–99
[2019-11-15 09:44] LABS: Basophils % 2.5 %; Hematocrit 21.5 % (37.0-47.0); Hemoglobin 6.8 g/dL (11.5-15.3); Lymphocytes # 0.2 10^3/uL (0.8-4.8); Lymphocytes % 47.5 %; Mean Corpuscular HGB Conc 31.6 g/dL (30.0-36.0); Mean Corpuscular Hemoglobin 28.9 pg (28.0-34.0); Mean Corpuscular Volume 91.5 fL (81-99); Neutrophils % 37.5 %; Nucleated Red Blood Cells % 0 %; Platelet Count 34 10^3/cmm (130-400); Red Blood Count 2.35 10^6/uL (4.1-5.3); Red Cell Distribution Width 15.8 % (12.1-15.1)
[2019-11-15 09:58] LABS: Neutrophils # 0.2 10^3/uL (1.8-7.7); White Blood Count 0.4 10^3/uL (4.0-10.0)
[2019-11-15] MEDS: sodium chloride 0.9% 250 ML 45 ML IV (12:15)
[2019-11-15] MEDS: diphenhydrAMINE 25 mg Capsule PO (12:20)
[2019-11-15] MEDS: acetaminophen 325 mg Tablet 650 MG PO (12:20)
[2019-11-15] MEDS: FUROsemide 10 mg/mL SDV 2mL 20 MG IV (14:05)
[2019-11-22 11:09] LABS: Hematocrit 25.9 % (37.0-47.0); Hemoglobin 8.1 g/dL (11.5-15.3); Lymphocytes # 0.3 10^3/uL (0.8-4.8); Lymphocytes % 55.3 %; Mean Corpuscular HGB Conc 31.3 g/dL (30.0-36.0); Mean Corpuscular Hemoglobin 28.3 pg (28.0-34.0); Mean Corpuscular Volume 90.6 fL (81-99); Monocytes % 6.4 %; Neutrophils % 36.2 %; Nucleated Red Blood Cells % 0 %; Red Blood Count 2.86 10^6/uL (4.1-5.3); Red Cell Distribution Width 15.4 % (12.1-15.1)
[2019-11-22 11:52] LABS: Neutrophils # 0.2 10^3/uL (1.8-7.7); Platelet Count 20 10^3/cmm (130-400); Slide Review Slide Review Perform; White Blood Count 0.5 10^3/uL (4.0-10.0)
== END 2019-11-23 23:59 | disposition home or self-care (01) ==
LOC: ONCMED 06:55
PROVIDERS: PCP Family Medicine; Visit Provider Internal Medicine Medical Oncology
DX: D46.Z Other myelodysplastic syndromes (principal); E83.111 Hemochromatosis due to repeated red blood cell transfusions; M25.551 Pain in right hip; M54.2 Cervicalgia; E04.9 Nontoxic goiter, unspecified; Z92.21 Personal history of antineoplastic chemotherapy; Z95.0 Presence of cardiac pacemaker
CPT/HCPCS: 36415; 36430; 80053; 85025; 86850; 86900; 86920; 99214; J1940; J7050; P9040

== ENCOUNTER 2019-12-23 09:13 | Outpatient (RCR) | payer MEDICARE, MEDICAID, SELFPAY ==
[2019-11-24 10:53] LABS: Hematocrit 22.8 % (37.0-47.0); Hemoglobin 7.1 g/dL (11.5-15.3); Lymphocytes # 0.3 10^3/uL (0.8-4.8); Lymphocytes % 52.7 %; Mean Corpuscular HGB Conc 31.1 g/dL (30.0-36.0); Mean Corpuscular Hemoglobin 28.1 pg (28.0-34.0); Mean Corpuscular Volume 90.1 fL (81-99); Monocytes % 5.5 %; Nucleated Red Blood Cells % 0 %; Platelet Count 30 10^3/cmm (130-400); Red Blood Count 2.53 10^6/uL (4.1-5.3); Red Cell Distribution Width 15.5 % (12.1-15.1)
[2019-11-24 12:23] LABS: Neutrophils # 0.2 10^3/uL (1.8-7.7); White Blood Count 0.6 10^3/uL (4.0-10.0)
[2019-11-24 12:24] LABS: Slide Review Slide Review Perform
[2019-11-25] VITALS (9 sets, daily range): BP systolic 129–166; BP diastolic 55–72; PULSE 67–80; RESP 18; TEMP 36.8–37.2; O2SAT 97
[2019-11-25] MEDS: sodium chloride 0.9% 250 ML 999 ML IV (08:40)
[2019-11-25] MEDS: acetaminophen 325 mg Tablet 650 MG PO (08:40)
[2019-11-25] MEDS: diphenhydrAMINE 25 mg Capsule PO (09:33)
[2019-11-25] MEDS: FUROsemide 10 mg/mL SDV 2mL 20 MG IV (14:36)
[2019-11-29 13:16] LABS: Hematocrit 25.4 % (37.0-47.0); Hemoglobin 8.1 g/dL (11.5-15.3); Lymphocytes # 0.3 10^3/uL (0.8-4.8); Mean Corpuscular HGB Conc 31.9 g/dL (30.0-36.0); Mean Corpuscular Hemoglobin 28.7 pg (28.0-34.0); Mean Corpuscular Volume 90.1 fL (81-99); Nucleated Red Blood Cells % 0 %; Platelet Count 33 10^3/cmm (130-400); Red Blood Count 2.82 10^6/uL (4.1-5.3); Red Cell Distribution Width 14.9 % (12.1-15.1)
[2019-11-29 13:30] LABS: Neutrophils # 0.2 10^3/uL (1.8-7.7); White Blood Count 0.5 10^3/uL (4.0-10.0)
[2019-12-01] VITALS (8 sets, daily range): BP systolic 126–149; BP diastolic 57–68; PULSE 62–68; RESP 18; TEMP 35.9–37.2; O2SAT 18–98
[2019-12-01] MEDS: acetaminophen 325 mg Tablet 650 MG PO (09:25)
[2019-12-01] MEDS: sodium chloride 0.9% 250 ML 999 ML IV (09:25)
[2019-12-01] MEDS: diphenhydrAMINE 25 mg Capsule PO (09:39)
[2019-12-01] MEDS: FUROsemide 10 mg/mL SDV 2mL 20 MG IV (17:02)
[2019-12-06 09:44] LABS: Basophils % 1.3 %; Hematocrit 30.6 % (37.0-47.0); Hemoglobin 9.7 g/dL (11.5-15.3); Lymphocytes # 0.4 10^3/uL (0.8-4.8); Lymphocytes % 47.4 %; Mean Corpuscular HGB Conc 31.7 g/dL (30.0-36.0); Mean Corpuscular Hemoglobin 28.1 pg (28.0-34.0); Mean Corpuscular Volume 88.7 fL (81-99); Monocytes % 5.3 %; Neutrophils % 42.1 %; Nucleated Red Blood Cells % 0 %; Platelet Count 38 10^3/cmm (130-400); Red Blood Count 3.45 10^6/uL (4.1-5.3); Red Cell Distribution Width 14.6 % (12.1-15.1)
[2019-12-06 09:59] LABS: Neutrophils # 0.32 10^3/uL (1.8-7.7); White Blood Count 0.8 10^3/uL (4.0-10.0)
[2019-12-13 08:42] LABS: Basophils % 1.5 %; Hematocrit 23.2 % (37.0-47.0); Hemoglobin 7.2 g/dL (11.5-15.3); Lymphocytes # 0.3 10^3/uL (0.8-4.8); Lymphocytes % 45.5 %; Mean Corpuscular Hemoglobin 27.4 pg (28.0-34.0); Mean Corpuscular Volume 88.2 fL (81-99); Monocytes % 6.1 %; Neutrophils % 45.4 %; Nucleated Red Blood Cells % 0 %; Red Blood Count 2.63 10^6/uL (4.1-5.3); Red Cell Distribution Width 14.6 % (12.1-15.1)
[2019-12-13 09:25] LABS: Platelet Count 38 10^3/cmm (130-400)
[2019-12-13 09:26] LABS: Slide Review Slide Review Perform
[2019-12-13 09:29] LABS: White Blood Count 0.7 10^3/uL (4.0-10.0)
[2019-12-13] MEDS: acetaminophen 325 mg Tablet 650 MG PO (11:30)
[2019-12-13] MEDS: sodium chloride 0.9% 250 ML 999 ML IV (11:30)
[2019-12-13 12:00] VITALS: BP 149/64; PULSE 67; RESP 18; TEMP 37.4; O2SAT 99
[2019-12-13 12:15] VITALS: BP 138/67; PULSE 72; RESP 18; TEMP 37.1; O2SAT 99
[2019-12-13] MEDS: diphenhydrAMINE 25 mg Capsule PO (12:30)
[2019-12-13] MEDS: FUROsemide 10 mg/mL SDV 2mL 20 MG IV (17:27)
[2019-12-20 09:17] LABS: Basophils % 1.1 %; Hematocrit 27.5 % (37.0-47.0); Hemoglobin 8.4 g/dL (11.5-15.3); Lymphocytes # 0.4 10^3/uL (0.8-4.8); Lymphocytes % 39.6 %; Mean Corpuscular HGB Conc 30.5 g/dL (30.0-36.0); Mean Corpuscular Hemoglobin 27.3 pg (28.0-34.0); Mean Corpuscular Volume 89.3 fL (81-99); Monocytes # 0.1 10^3/uL (0.2-0.9); Monocytes % 5.5 %; Neutrophils % 51.6 %; Nucleated Red Blood Cells % 0 %; Platelet Count 39 10^3/cmm (130-400); Red Blood Count 3.08 10^6/uL (4.1-5.3); Red Cell Distribution Width 14.6 % (12.1-15.1)
[2019-12-20 09:22] LABS: Neutrophils # 0.47 10^3/uL (1.8-7.7); White Blood Count 0.9 10^3/uL (4.0-10.0)
[2019-12-23 08:09] LABS: Basophils % 1.1 %; Hemoglobin 7.3 g/dL (11.5-15.3); Lymphocytes # 0.3 10^3/uL (0.8-4.8); Mean Corpuscular HGB Conc 31.7 g/dL (30.0-36.0); Mean Corpuscular Hemoglobin 28.4 pg (28.0-34.0); Mean Corpuscular Volume 89.5 fL (81-99); Monocytes % 4.5 %; Neutrophils % 56.9 %; Nucleated Red Blood Cells % 0 %; Platelet Count 39 10^3/cmm (130-400); Red Blood Count 2.57 10^6/uL (4.1-5.3); Red Cell Distribution Width 14.6 % (12.1-15.1)
[2019-12-23 08:33] LABS: White Blood Count 0.9 10^3/uL (4.0-10.0)
== END 2019-12-24 23:59 | disposition home or self-care (01) ==
LOC: ONCMED 09:13
PROVIDERS: Internal Medicine; Nurse Practitioner; PCP Family Medicine; Visit Provider Internal Medicine Medical Oncology
DX: D46.Z Other myelodysplastic syndromes (principal)
CPT/HCPCS: 36415; 36430; 85025; 86850; 86900; 86920; J1940; J7050; P9040

== ENCOUNTER 2020-01-24 07:00 | Outpatient (RCR) | payer MEDICARE, MEDICAID, SELFPAY ==
[2019-12-27 08:18] LABS: Basophils % 0.9 %; Hematocrit 28.2 % (37.0-47.0); Lymphocytes # 0.4 10^3/uL (0.8-4.8); Lymphocytes % 38.4 %; Mean Corpuscular HGB Conc 31.9 g/dL (30.0-36.0); Mean Corpuscular Hemoglobin 28.8 pg (28.0-34.0); Mean Corpuscular Volume 90.4 fL (81-99); Monocytes # 0.1 10^3/uL (0.2-0.9); Monocytes % 5.4 %; Neutrophils % 50.8 %; Nucleated Red Blood Cells % 0 %; Platelet Count 38 10^3/cmm (130-400); Red Blood Count 3.12 10^6/uL (4.1-5.3); Red Cell Distribution Width 14.6 % (12.1-15.1); White Blood Count 1.1 10^3/uL (4.0-10.0)
[2019-12-27 08:21] LABS: Mean Platelet Volume 13.8 fL (7.4-10.4)
[2019-12-27 08:24] LABS: Neutrophils # 0.57 10^3/uL (1.8-7.7)
[2020-01-04] MEDS: sodium chloride 0.9% 250 ML 999 ML IV (11:30)
[2020-01-04] MEDS: acetaminophen 325 mg Tablet 650 MG PO (12:30)
[2020-01-04] MEDS: diphenhydrAMINE 25 mg Capsule PO (12:30)
[2020-01-04] MEDS: sodium chloride 0.9% (100 ml) 100 ML (14:30)
[2020-01-10 08:23] LABS: Basophils % 1.4 %; Hematocrit 28.5 % (37.0-47.0); Hemoglobin 9.1 g/dL (11.5-15.3); Lymphocytes # 0.6 10^3/uL (0.8-4.8); Lymphocytes % 39.2 %; Mean Corpuscular HGB Conc 31.9 g/dL (30.0-36.0); Mean Corpuscular Hemoglobin 28.7 pg (28.0-34.0); Mean Corpuscular Volume 89.9 fL (81-99); Monocytes % 2.8 %; Neutrophils % 53.8 %; Nucleated Red Blood Cells % 0 %; Platelet Count 43 10^3/cmm (130-400); Red Blood Count 3.17 10^6/uL (4.1-5.3); Red Cell Distribution Width 13.9 % (12.1-15.1); White Blood Count 1.4 10^3/uL (4.0-10.0)
[2020-01-10 08:32] LABS: Neutrophils # 0.77 10^3/uL (1.8-7.7)
[2020-01-17 13:51] LABS: Basophils % 1.8 %; Hematocrit 24.2 % (37.0-47.0); Hemoglobin 7.5 g/dL (11.5-15.3); Lymphocytes # 0.6 10^3/uL (0.8-4.8); Lymphocytes % 37.4 %; Mean Corpuscular Hemoglobin 28.3 pg (28.0-34.0); Mean Corpuscular Volume 91.3 fL (81-99); Monocytes # 0.1 10^3/uL (0.2-0.9); Monocytes % 3.1 %; Neutrophils % 54.6 %; Nucleated Red Blood Cells % 0 %; Platelet Count 47 10^3/cmm (130-400); Red Blood Count 2.65 10^6/uL (4.1-5.3); Red Cell Distribution Width 14.3 % (12.1-15.1); White Blood Count 1.6 10^3/uL (4.0-10.0)
[2020-01-17 15:14] LABS: Neutrophils # 0.89 10^3/uL (1.8-7.7); Slide Review Slide Review Perform
[2020-01-18] VITALS (10 sets, daily range): BP systolic 117–155; BP diastolic 56–69; PULSE 68–84; RESP 16–18; TEMP 36.6–37.2; O2SAT 97–99
[2020-01-18] MEDS: acetaminophen 325 mg Tablet 650 MG PO (10:06)
[2020-01-18] MEDS: sodium chloride 0.9% 250 ML 999 ML IV (10:06)
[2020-01-18] MEDS: diphenhydrAMINE 25 mg Capsule PO (10:06)
[2020-01-18] MEDS: FUROsemide 10 mg/mL SDV 2mL 20 MG IV (11:23)
[2020-01-24 13:56] LABS: Basophils % 0.7 %; Hematocrit 24.9 % (37.0-47.0); Hemoglobin 7.8 g/dL (11.5-15.3); Lymphocytes # 0.5 10^3/uL (0.8-4.8); Lymphocytes % 37.8 %; Mean Corpuscular HGB Conc 31.3 g/dL (30.0-36.0); Mean Corpuscular Hemoglobin 28.4 pg (28.0-34.0); Mean Corpuscular Volume 90.5 fL (81-99); Monocytes # 0.1 10^3/uL (0.2-0.9); Monocytes % 5.2 %; Neutrophils % 54.8 %; Nucleated Red Blood Cells % 0 %; Platelet Count 37 10^3/cmm (130-400); Red Blood Count 2.75 10^6/uL (4.1-5.3); Red Cell Distribution Width 14.1 % (12.1-15.1); White Blood Count 1.4 10^3/uL (4.0-10.0)
[2020-01-24 14:07] LABS: Neutrophils # 0.74 10^3/uL (1.8-7.7)
== END 2020-01-24 23:59 | disposition home or self-care (01) ==
LOC: ONCMED 07:00
PROVIDERS: Nurse Practitioner; PCP Family Medicine; Visit Provider Internal Medicine Medical Oncology
DX: D46.Z Other myelodysplastic syndromes (principal)
CPT/HCPCS: 36415; 36430; 85025; 86850; 86900; 86920; J1940; J7050; P9040

== ENCOUNTER 2020-01-25 09:12 | Emergency (ER) | payer MEDICARE, MEDICAID, SELFPAY ==
[2020-01-25 09:18] VITALS: BP 103/49; PULSE 82; RESP 15; TEMP 36.4; O2SAT 100; BMI 24.1
--- NOTE | 2020-01-25 09:27 | CT_ITS ---
WS: [id number] CT HEAD NONCONTRAST HISTORY: fall, head injury TECHNIQUE: Contiguous axial imaging performed through the brain in 2.5 mm imaging. Bone and soft tiss ue windows. Sagittal and coronal reformats reviewed. All CT scans at [facility] use at le ast one of these dose optimization techniques: automated exposure control; mA and/or kV adjustment pe r patient size (includes targeted exams where dose is matched to clinical indication); or iterative r econstruction. DLP: 973.97 mGy.cm COMPARISON: 06/26/2018 No acute intracranial hemorrhage, midline shift or mass effect. Mild atrophy and mild chronic ischemic disease. No prior infarcts. Posterior fossa is limited by cherry on. Ventricles: Mildly prominent ventricles. Paranasal sinuses: As visualized are clear. Mastoid air cells: Well pneumatized. Calvarium and scalp: Skull is intact with no soft tissue edema or swelling. CT/CT head wo con* [id number] IMPRESSION: 1. No acute intracranial hemorrhage or edema. 2. Mild ventriculomegaly and atrophy. No interval change.
--- NOTE | 2020-01-25 09:28 | W.ED.FALL ---
HPI - Fall General: Chief Complaint: Fall Stated Complaint: FALL Time Seen by Provider: 01/25/20 09:16 History of Present Illness: HPI Narrative: Patient fell at the alf this morning and hit left side of the head. Patient now complains about headache and blurry vision. She did go to for cancer treatment oncology this morning they sent her over here. Patient said she slipped and fell striking her head on the floor complaint: fall Onset (ago): hour(s) Fall from: standing Fall witnessed: yes, by living facility staff Place fall occurred: alf/SNF Loss of consciousness: None Prolonged down time: no Symptoms prior to fall: none Severity: mild Associated symptoms-after fall: Reports headache(s) and other (Blurry vision and nausea); Denies abdominal pain or chest pain Review of Systems Const: Denies: fever(s), chills or body aches Eyes: Reports: blurry vision; Denies: change in vision ENMT: Denies: throat pain or nasal congestion Card: Denies: chest pain or dyspnea on exertion Resp: Denies: dyspnea, productive cough or non-productive cough GI: Reports: nausea; Denies: abdominal pain or vomiting Musc: Denies: extremity pain Skin/Breast: Denies: rash Neuro: Reports: headache(s) Psych: Denies: anxiety or depression Kavon/Lymph: Denies: easy bruising PFSH ED PFSH: Medical History (Updated 01/25/20 @ 10:18 by UBALDO Angulo) Chronic kidney disease, stage III (moderate) GERD (gastroesophageal reflux disease) Hyperlipidemia Hypertension Hyperthyroidism Myelodysplastic syndrome Transfusion dependent, 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, associated with neutropenia and thrombocytopenia Skin cancer of nose Removed Surgical History History of cholecystectomy History of partial thyroidectomy History of ventral hernia repair Family History Brother Cancer Social History Smoking and tobacco status: former smoker Physical Exam Const: COMMON NORMALS: no acute distress, average body habitus and alert ORIENTATION/CONSCIOUSNESS: Yes oriented to person, Yes oriented to place and Yes oriented to time HENMT: COMMON NORMALS: normocephalic HEAD & SCALP: normal to inspection and normocephalic FACE & SINUS: normal facial exam Eye: COMMON NORMALS: conjunctivae normal GENERAL EYE: appearance normal, both eyes and all related structures CONJUNCTIVA: Yes conjunctivae normal Neck/C-Spine: COMMON NORMALS: no JVD Chest: COMMONS NORMALS: normal inspection of the chest Resp: COMMON NORMALS: normal respiratory effort and clear to auscultation bilaterally AUSCULTATION: clear to auscultation bilaterally Cardio: COMMON NORMALS: no JVD, regular rate and regular rhythm RATE: regular rate RHYTHM: regular rhythm GI: COMMON NORMALS: Normal to inspection, nondistended, normoactive bowel sounds present Extremity: COMMON NORMALS: normal to inspection and full ROM Neuro: COMMON NORMALS: CN's II-XII intact bilaterally, moves all extremities and no focal motor deficits SENSORIUM/ORIENTATION: Yes alert, Yes oriented to person, Yes oriented to place and Yes oriented to time SPEECH: speech normal Course Vital Signs: Vital signs: Vital Signs Temperature 97.5 F L 01/25/20 09:18 Pulse Rate 82 01/25/20 09:18 Respiratory Rate 15 01/25/20 09:18 Blood Pressure 103/49 01/25/20 09:18 Pulse Oximetry 100 01/25/20 09:18 Discharge Plan Discharge Patient Disposition: Home Clinical Impression: Contusion Qualifiers: Encounter type: initial encounter Contusion area: head Contusion of head detail: scalp Qualified Code(s): S00.03XA - Contusion of scalp, initial encounter Condition: Stable Prescriptions: No Action bumetanide 1 mg tablet 1 mg PO DAILY RF: 0 metoclopramide HCl [Reglan] 5 mg tablet 5 mg PO TID RF: 0 ropinirole 0.5 mg tablet 0.5 mg PO BID RF: 0 ondansetron 4 mg tablet,disintegrating 4 mg PO Q8H PRN (Reason: Nausea) RF: 0 magnesium hydroxide [Milk of Magnesia] 400 mg/5 mL Suspension 30 ml PO DAILY PRN (Reason: Constipation) RF: 0 escitalopram oxalate 20 mg tablet 20 mg PO DAILY RF: 0 calcium carbonate 500 mg calcium (1,250 mg) Tablet,Chewable 500 mg PO BID RF: 0 pantoprazole 40 mg Tablet,Delayed Release (Dr/Ec) 40 mg PO DAILY Qty: 30 RF: 0 folic acid 1 mg Tablet 1 mg PO DAILY Qty: 30 RF: 0 fentanyl 50 mcg/hr patch 72 hour 50 mcg topical Q72H RF: 0 Discharge Orders: Discharge Order (Routine); Ordered 01/25/20 Ordered By: Enmanuel Shane Referrals: Tiff Lafleur MD [Primary Care Provider] - Discharge Diet: Usual diet Discharge Activity: Resume usual activity Patient Instructions: Contusion in Adults (ED) Activity Restrictions/Additional Instructions: Consult alf doctor for further care or any prescriptions. Can take medication as already prescribed. Apply ice to area for discomfort. Coding Level of Care Code ED Gamma Ray Operator for Chg Fwd Exam Comprehensive
[2020-01-25] MEDS: ondansetron 4 MG Tablet 2 MG PO (09:33)
--- NOTE | 2020-01-25 09:37 | PC.NURSE ---
Patient in CT at this time
--- NOTE | 2020-01-25 09:42 | PC.NURSE ---
Patient back from CT
[2020-01-25] MEDS: TRAMadol 50 mg Tablet PO (10:21)
[2020-01-25 10:26] VITALS: BP 134/49; PULSE 87; RESP 18; O2SAT 100
== END 2020-01-25 11:24 | disposition home or self-care (01) ==
PROVIDERS: Emergency Provider Nurse Practitioner Family; PCP Family Medicine
DX: S00.03XA Contusion of scalp, initial encounter (principal); E78.5 Hyperlipidemia, unspecified; I12.9 Hypertensive chronic kidney disease with stage 1 through stage 4 chronic kidney disease, or unspecified chronic kidney disease; N18.3 Chronic kidney disease, stage 3 (moderate); Z87.891 Personal history of nicotine dependence; W19.XXXA Unspecified fall, initial encounter; Y92.129 Unspecified place in nursing home as the place of occurrence of the external cause
CPT/HCPCS: 12345; 70450; 99281; 99283; Q0162

== ENCOUNTER 2020-02-23 07:00 | Outpatient (RCR) | payer MEDICARE, MEDICAID, SELFPAY ==
[2020-01-25] MEDS: acetaminophen 325 mg Tablet 650 MG PO (13:21)
[2020-01-25] MEDS: sodium chloride 0.9% 250 ML 999 ML IV (13:22)
[2020-01-25] MEDS: diphenhydrAMINE 25 mg Capsule PO (16:21)
[2020-01-25] MEDS: FUROsemide 10 mg/mL SDV 2mL 20 MG IV (16:23)
[2020-02-01 11:02] LABS: Basophils % 1.2 %; Hemoglobin 6.6 g/dL (11.5-15.3); Lymphocytes # 0.5 10^3/uL (0.8-4.8); Lymphocytes % 29.9 %; Mean Corpuscular HGB Conc 31.4 g/dL (30.0-36.0); Mean Corpuscular Hemoglobin 28.8 pg (28.0-34.0); Mean Corpuscular Volume 91.7 fL (81-99); Monocytes # 0.1 10^3/uL (0.2-0.9); Monocytes % 3.6 %; Neutrophils # 1.05 10^3/uL (1.8-7.7); Neutrophils % 62.9 %; Nucleated Red Blood Cells % 0 %; Platelet Count 40 10^3/cmm (130-400); Red Blood Count 2.29 10^6/uL (4.1-5.3); Red Cell Distribution Width 14.6 % (12.1-15.1); White Blood Count 1.7 10^3/uL (4.0-10.0)
[2020-02-01 11:39] LABS: Slide Review Slide Review Perform
[2020-02-02] VITALS (10 sets, daily range): BP systolic 128–158; BP diastolic 64–74; PULSE 67–75; RESP 18; TEMP 36.6–37.1; O2SAT 97–98
[2020-02-02] MEDS: acetaminophen 325 mg Tablet 650 MG PO (09:00)
[2020-02-02] MEDS: sodium chloride 0.9% 250 ML 999 ML IV (09:00)
[2020-02-02] MEDS: diphenhydrAMINE 25 mg Capsule PO (10:16)
[2020-02-07 12:21] LABS: Basophils % 0.8 %; Hemoglobin 6.7 g/dL (11.5-15.3); Lymphocytes # 0.3 10^3/uL (0.8-4.8); Lymphocytes % 26.8 %; Mean Corpuscular HGB Conc 31.9 g/dL (30.0-36.0); Mean Corpuscular Hemoglobin 28.9 pg (28.0-34.0); Mean Corpuscular Volume 90.5 fL (81-99); Monocytes # 0.1 10^3/uL (0.2-0.9); Monocytes % 6.5 %; Nucleated Red Blood Cells % 0 %; Red Blood Count 2.32 10^6/uL (4.1-5.3); Red Cell Distribution Width 14.6 % (12.1-15.1); White Blood Count 1.2 10^3/uL (4.0-10.0)
[2020-02-07 13:38] LABS: Platelet Count 22 10^3/cmm (130-400)
[2020-02-07 13:39] LABS: Neutrophils # 0.75 10^3/uL (1.8-7.7); Slide Review Slide Review Perform
[2020-02-08] VITALS (9 sets, daily range): BP systolic 130–160; BP diastolic 62–74; PULSE 60–156; RESP 17–18; TEMP 36.4–36.7; O2SAT 97–99
[2020-02-08] MEDS: sodium chloride 0.9% 250 ML 999 ML IV (08:40)
[2020-02-08] MEDS: diphenhydrAMINE 25 mg Capsule PO (08:40)
[2020-02-08] MEDS: acetaminophen 325 mg Tablet 650 MG PO (08:40)
[2020-02-08] MEDS: FUROsemide 10 mg/mL SDV 2mL 20 MG IV (10:30)
[2020-02-14 14:45] LABS: Basophils % 0.7 %; Hematocrit 24.5 % (37.0-47.0); Hemoglobin 7.8 g/dL (11.5-15.3); Lymphocytes # 0.4 10^3/uL (0.8-4.8); Lymphocytes % 25.7 %; Mean Corpuscular HGB Conc 31.8 g/dL (30.0-36.0); Mean Corpuscular Hemoglobin 28.1 pg (28.0-34.0); Mean Corpuscular Volume 88.1 fL (81-99); Monocytes # 0.1 10^3/uL (0.2-0.9); Monocytes % 5.7 %; Neutrophils % 64.3 %; Nucleated Red Blood Cells % 0 %; Platelet Count 29 10^3/cmm (130-400); Red Blood Count 2.78 10^6/uL (4.1-5.3); Red Cell Distribution Width 13.8 % (12.1-15.1); White Blood Count 1.4 10^3/uL (4.0-10.0)
[2020-02-14 15:28] LABS: Slide Review Slide Review Perform
[2020-02-15] VITALS (10 sets, daily range): BP systolic 125–147; BP diastolic 61–67; PULSE 67–72; RESP 18; TEMP 36.6–37.1; O2SAT 18–96
[2020-02-15] MEDS: acetaminophen 325 mg Tablet 650 MG PO (08:25)
[2020-02-15] MEDS: sodium chloride 0.9% 250 ML 999 ML IV (08:25)
[2020-02-15] MEDS: FUROsemide 10 mg/mL SDV 2mL 20 MG IV (10:30)
[2020-02-15] MEDS: diphenhydrAMINE 25 mg Capsule PO (16:30)
[2020-02-21 15:42] LABS: Basophils % 1.5 %; Hematocrit 27.8 % (37.0-47.0); Hemoglobin 8.8 g/dL (11.5-15.3); Lymphocytes # 0.4 10^3/uL (0.8-4.8); Lymphocytes % 18.8 %; Mean Corpuscular HGB Conc 31.7 g/dL (30.0-36.0); Mean Corpuscular Hemoglobin 27.9 pg (28.0-34.0); Mean Corpuscular Volume 88.3 fL (81-99); Monocytes # 0.1 10^3/uL (0.2-0.9); Neutrophils # 1.43 10^3/uL (1.8-7.7); Neutrophils % 70.7 %; Nucleated Red Blood Cells % 0 %; Platelet Count 35 10^3/cmm (130-400); Red Blood Count 3.15 10^6/uL (4.1-5.3); Red Cell Distribution Width 14.2 % (12.1-15.1)
[2020-02-21 16:48] LABS: Slide Review Slide Review Perform
[2020-02-23] VITALS (10 sets, daily range): BP systolic 123–156; BP diastolic 62–75; PULSE 71–77; RESP 17–18; TEMP 36.9–37.4; O2SAT 96–98
[2020-02-23 07:38] LABS: Basophils % 1.2 %; Hematocrit 24.5 % (37.0-47.0); Hemoglobin 7.9 g/dL (11.5-15.3); Lymphocytes # 0.5 10^3/uL (0.8-4.8); Lymphocytes % 26.6 %; Mean Corpuscular HGB Conc 32.2 g/dL (30.0-36.0); Mean Corpuscular Hemoglobin 28.3 pg (28.0-34.0); Mean Corpuscular Volume 87.8 fL (81-99); Monocytes # 0.1 10^3/uL (0.2-0.9); Monocytes % 5.3 %; Neutrophils # 1.06 10^3/uL (1.8-7.7); Neutrophils % 62.8 %; Nucleated Red Blood Cells % 0 %; Platelet Count 30 10^3/cmm (130-400); Red Blood Count 2.79 10^6/uL (4.1-5.3); White Blood Count 1.7 10^3/uL (4.0-10.0)
[2020-02-23] MEDS: sodium chloride 0.9% 250 ML 999 ML IV (10:00)
[2020-02-23] MEDS: diphenhydrAMINE 25 mg Capsule PO (10:00)
[2020-02-23] MEDS: acetaminophen 325 mg Tablet 650 MG PO (10:00)
[2020-02-23] MEDS: FUROsemide 10 mg/mL SDV 2mL 20 MG IV (11:50)
== END 2020-02-23 23:59 | disposition home or self-care (01) ==
LOC: ONCMED 07:00
PROVIDERS: Nurse Practitioner; PCP Family Medicine; Visit Provider Internal Medicine Medical Oncology
DX: E83.111 Hemochromatosis due to repeated red blood cell transfusions (principal); D46.Z Other myelodysplastic syndromes; M25.551 Pain in right hip
CPT/HCPCS: 36415; 36430; 85025; 86850; 86900; 86920; J1940; J7050; P9040

== ENCOUNTER 2020-03-21 06:40 | Outpatient (RCR) | payer MEDICARE, MEDICAID, SELFPAY ==
[2020-02-28 13:29] LABS: Basophils % 1.5 %; Hematocrit 30.5 % (37.0-47.0); Hemoglobin 9.5 g/dL (11.5-15.3); Lymphocytes # 0.4 10^3/uL (0.8-4.8); Lymphocytes % 19.3 %; Mean Corpuscular HGB Conc 31.1 g/dL (30.0-36.0); Mean Corpuscular Hemoglobin 27.9 pg (28.0-34.0); Mean Corpuscular Volume 89.4 fL (81-99); Monocytes # 0.1 10^3/uL (0.2-0.9); Neutrophils # 1.44 10^3/uL (1.8-7.7); Neutrophils % 71.2 %; Nucleated Red Blood Cells % 0 %; Red Blood Count 3.41 10^6/uL (4.1-5.3); Red Cell Distribution Width 14.2 % (12.1-15.1)
[2020-02-28 13:58] LABS: Platelet Count 24 10^3/cmm (130-400)
[2020-02-28 13:59] LABS: Slide Review Slide Review Perform
[2020-03-06 09:16] LABS: Basophils % 1.1 %; Hemoglobin 7.5 g/dL (11.5-15.3); Lymphocytes # 0.5 10^3/uL (0.8-4.8); Lymphocytes % 18.5 %; Mean Corpuscular HGB Conc 31.3 g/dL (30.0-36.0); Mean Corpuscular Hemoglobin 27.6 pg (28.0-34.0); Mean Corpuscular Volume 88.2 fL (81-99); Monocytes # 0.2 10^3/uL (0.2-0.9); Monocytes % 8.1 %; Neutrophils % 66.7 %; Nucleated Red Blood Cells % 0 %; Platelet Count 34 10^3/cmm (130-400); Red Blood Count 2.72 10^6/uL (4.1-5.3); Red Cell Distribution Width 14.7 % (12.1-15.1); White Blood Count 2.7 10^3/uL (4.0-10.0)
[2020-03-07 09:00] VITALS: BP 149/67; PULSE 69; RESP 18; TEMP 36.9; O2SAT 99
[2020-03-07] MEDS: acetaminophen 325 mg Tablet 650 MG PO (09:00)
[2020-03-07] MEDS: sodium chloride 0.9% 250 ML 999 ML IV (09:00)
[2020-03-07] MEDS: diphenhydrAMINE 25 mg Capsule PO (09:00)
[2020-03-07 09:20] VITALS: BP 151/64; PULSE 69; RESP 18; TEMP 36.9; O2SAT 98
[2020-03-07 09:35] VITALS: BP 150/66; PULSE 64; RESP 18; TEMP 36.9; O2SAT 98
[2020-03-07 10:35] VITALS: BP 152/61; PULSE 66; RESP 18; TEMP 36.9; O2SAT 98
[2020-03-07 10:55] VITALS: BP 155/62; PULSE 66; RESP 18; TEMP 37.1; O2SAT 98
[2020-03-07] MEDS: FUROsemide 10 mg/mL SDV 2mL 20 MG IV (10:56)
[2020-03-07 13:30] LABS: Urine Appearance Clear (CLEAR); Urine Color Yellow (Yellow)
[2020-03-07 13:31] LABS: Bilirubin Urine Neg (Negative); Blood Urine Neg (Negative); Glucose Urine UA Norm (Normal); Ketones Urine Negative (Negative); Leukocyte Esterase Urine Negative (Negative); Nitrate Urine Negative (Negative); Protein Urine Neg (Negative); Specific Gravity, Urine 1.005 (1.005-1.030); Urobilinogen Urine Norm (Negative)
[2020-03-07 13:41] LABS: Add Urine Culture? No
[2020-03-13 08:57] LABS: Basophils % 1.3 %; Hematocrit 26.9 % (37.0-47.0); Hemoglobin 8.4 g/dL (11.5-15.3); Lymphocytes # 0.4 10^3/uL (0.8-4.8); Lymphocytes % 22.3 %; Mean Corpuscular HGB Conc 31.2 g/dL (30.0-36.0); Mean Corpuscular Volume 89.7 fL (81-99); Monocytes # 0.1 10^3/uL (0.2-0.9); Monocytes % 8.3 %; Neutrophils # 0.99 10^3/uL (1.8-7.7); Nucleated Red Blood Cells % 0 %; Red Cell Distribution Width 14.4 % (12.1-15.1); White Blood Count 1.6 10^3/uL (4.0-10.0)
[2020-03-13 09:38] LABS: Platelet Count 28 10^3/cmm (130-400)
[2020-03-13 09:39] LABS: Neutrophils % 68.1 %; Slide Review Slide Review Perform
[2020-03-20 08:55] LABS: Basophils % 0.8 %; Hematocrit 21.3 % (37.0-47.0); Hemoglobin 6.8 g/dL (11.5-15.3); Lymphocytes # 0.3 10^3/uL (0.8-4.8); Lymphocytes % 22.7 %; Mean Corpuscular HGB Conc 31.9 g/dL (30.0-36.0); Mean Corpuscular Hemoglobin 28.2 pg (28.0-34.0); Mean Corpuscular Volume 88.4 fL (81-99); Monocytes # 0.1 10^3/uL (0.2-0.9); Monocytes % 8.6 %; Nucleated Red Blood Cells % 2.3 %; Red Blood Count 2.41 10^6/uL (4.1-5.3); Red Cell Distribution Width 14.2 % (12.1-15.1); White Blood Count 1.3 10^3/uL (4.0-10.0)
[2020-03-20 09:02] LABS: Neutrophils % 68.1 %
[2020-03-20 09:03] LABS: Platelet Count 23 10^3/cmm (130-400)
[2020-03-20 09:04] LABS: Neutrophils # 0.79 10^3/uL (1.8-7.7)
[2020-03-21] MEDS: FUROsemide 10 mg/mL SDV 2mL 20 MG IV (08:10)
[2020-03-21] MEDS: sodium chloride 0.9% 250 ML 999 ML IV (08:10)
[2020-03-21] MEDS: diphenhydrAMINE 25 mg Capsule PO (08:15)
[2020-03-21 08:55] VITALS: BP 97/61; PULSE 114; RESP 18; TEMP 36.6; O2SAT 100
[2020-03-21] MEDS: acetaminophen 325 mg Tablet 650 MG PO (08:58)
[2020-03-21 09:44] LABS: Basophils % 0.8 %; Hematocrit 21.8 % (37.0-47.0); Hemoglobin 6.8 g/dL (11.5-15.3); Lymphocytes # 0.3 10^3/uL (0.8-4.8); Lymphocytes % 25.8 %; Mean Corpuscular HGB Conc 31.2 g/dL (30.0-36.0); Mean Corpuscular Hemoglobin 27.9 pg (28.0-34.0); Mean Corpuscular Volume 89.3 fL (81-99); Monocytes # 0.1 10^3/uL (0.2-0.9); Monocytes % 7.8 %; Neutrophils % 57.8 %; Nucleated Red Blood Cells % 1.6 %; Red Blood Count 2.44 10^6/uL (4.1-5.3); Red Cell Distribution Width 14.4 % (12.1-15.1); White Blood Count 1.3 10^3/uL (4.0-10.0)
[2020-03-21 11:00] VITALS: BP 98/56; PULSE 116; RESP 18; TEMP 36.6; O2SAT 98
[2020-03-21 11:04] LABS: Add RBC Morph Yes; Slide Review Slide Review Perform
[2020-03-21 11:05] LABS: Neutrophils # 0.74 10^3/uL (1.8-7.7); Platelet Count 22 10^3/cmm (130-400)
[2020-03-21 11:06] LABS: Anisocytosis 1+; Microcytosis 1+; Ovalocytes 1+; Poikilocytosis 1+; RBC Morph Comp Yes; Schistocytes Trace
[2020-03-21 11:15] VITALS: BP 102/58; PULSE 114; RESP 18; TEMP 36.6; O2SAT 97
[2020-03-21 11:30] VITALS: BP 100/59; PULSE 112; RESP 18; TEMP 36.6; O2SAT 98
[2020-03-21 12:00] VITALS: BP 102/61; PULSE 108; RESP 17; TEMP 36.6; O2SAT 99
[2020-03-21 12:45] VITALS: BP 112/64; PULSE 114; RESP 18; TEMP 36.6; O2SAT 99
== END 2020-03-25 23:59 | disposition home or self-care (01) ==
LOC: ONCMED 06:40
PROVIDERS: Nurse Practitioner; PCP Family Medicine; Visit Provider Internal Medicine Medical Oncology
DX: D46.Z Other myelodysplastic syndromes (principal); R30.0 Dysuria; R41.0 Disorientation, unspecified; E83.111 Hemochromatosis due to repeated red blood cell transfusions; E78.5 Hyperlipidemia, unspecified; F41.9 Anxiety disorder, unspecified; F32.9 Major depressive disorder, single episode, unspecified; K21.9 Gastro-esophageal reflux disease without esophagitis; M25.551 Pain in right hip
CPT/HCPCS: 36415; 36430; 81001; 85025; 86850; 86900; 86920; J1940; J7050; P9040

== ENCOUNTER 2020-04-24 07:10 | Outpatient (RCR) | payer MEDICARE, MEDICAID, SELFPAY ==
[2020-03-27 07:06] LABS: Basophils % 1.6 %; Hemoglobin 7.4 g/dL (11.5-15.3); Lymphocytes # 0.4 10^3/uL (0.8-4.8); Lymphocytes % 28.5 %; Mean Corpuscular HGB Conc 32.2 g/dL (30.0-36.0); Mean Corpuscular Hemoglobin 28.5 pg (28.0-34.0); Mean Corpuscular Volume 88.5 fL (81-99); Monocytes # 0.1 10^3/uL (0.2-0.9); Monocytes % 11.4 %; Nucleated Red Blood Cells % 0 %; Red Cell Distribution Width 14.4 % (12.1-15.1); White Blood Count 1.2 10^3/uL (4.0-10.0)
[2020-03-27 07:42] LABS: Neutrophils % 58.5 %; Slide Review Slide Review Perform
[2020-03-27 08:26] LABS: Platelet Count 21 10^3/cmm (130-400)
[2020-03-27] MEDS: sodium chloride 0.9% 250 ML 999 ML IV (11:20)
[2020-03-27] MEDS: acetaminophen 325 mg Tablet 650 MG PO (11:25)
[2020-03-27 12:15] VITALS: BP 151/76; PULSE 18; RESP 18; TEMP 36.9; O2SAT 98
[2020-03-27] MEDS: diphenhydrAMINE 25 mg Capsule PO (12:23)
[2020-03-27 12:30] VITALS: BP 125/70; PULSE 71; RESP 18; TEMP 37.1; O2SAT 96
[2020-03-27 12:45] VITALS: BP 128/72; PULSE 72; RESP 18; TEMP 37.1; O2SAT 96
[2020-03-27 13:15] VITALS: BP 150/73; PULSE 71; RESP 18; TEMP 36.9; O2SAT 96
[2020-03-27] MEDS: FUROsemide 10 mg/mL SDV 2mL 20 MG IV (13:45)
[2020-04-03 07:41] LABS: Basophils % 1.7 %; Hematocrit 24.7 % (37.0-47.0); Hemoglobin 8.2 g/dL (11.5-15.3); Lymphocytes # 0.3 10^3/uL (0.8-4.8); Mean Corpuscular HGB Conc 33.2 g/dL (30.0-36.0); Mean Corpuscular Hemoglobin 30.3 pg (28.0-34.0); Mean Corpuscular Volume 91.1 fL (81-99); Monocytes # 0.1 10^3/uL (0.2-0.9); Monocytes % 9.3 %; Neutrophils % 49.1 %; Nucleated Red Blood Cells % 0 %; Red Blood Count 2.71 10^6/uL (4.1-5.3); Red Cell Distribution Width 14.4 % (12.1-15.1); White Blood Count 1.2 10^3/uL (4.0-10.0)
[2020-04-03 09:02] LABS: Platelet Count 20 10^3/cmm (130-400)
[2020-04-03 09:03] LABS: Neutrophils # 0.58 10^3/uL (1.8-7.7)
[2020-04-04] VITALS (10 sets, daily range): BP systolic 120–145; BP diastolic 46–63; PULSE 71–79; RESP 17–18; TEMP 37.1–37.3; O2SAT 96–97
[2020-04-04] MEDS: diphenhydrAMINE 25 mg Capsule PO (08:45)
[2020-04-04] MEDS: sodium chloride 0.9% 250 ML 999 ML IV (08:45)
[2020-04-04] MEDS: acetaminophen 325 mg Tablet 650 MG PO (08:45)
[2020-04-04] MEDS: FUROsemide 10 mg/mL SDV 2mL 20 MG IV (11:20)
[2020-04-10 07:31] LABS: Basophils % 1.2 %; Hematocrit 26.6 % (37.0-47.0); Hemoglobin 8.7 g/dL (11.5-15.3); Lymphocytes # 0.6 10^3/uL (0.8-4.8); Lymphocytes % 33.7 %; Mean Corpuscular HGB Conc 32.7 g/dL (30.0-36.0); Mean Corpuscular Hemoglobin 29.1 pg (28.0-34.0); Monocytes # 0.2 10^3/uL (0.2-0.9); Monocytes % 13.3 %; Nucleated Red Blood Cells % 0 %; Red Blood Count 2.99 10^6/uL (4.1-5.3); Red Cell Distribution Width 14.3 % (12.1-15.1); White Blood Count 1.7 10^3/uL (4.0-10.0)
[2020-04-10 08:23] LABS: Neutrophils % 51.4 %; Slide Review Slide Review Perform
[2020-04-10 08:25] LABS: Neutrophils # 0.67 10^3/uL (1.8-7.7); Platelet Count 22 10^3/cmm (130-400)
[2020-04-17] VITALS (10 sets, daily range): BP systolic 102–146; BP diastolic 51–78; PULSE 73–94; RESP 18; TEMP 36.6–37.2; O2SAT 93–97
[2020-04-17 08:57] LABS: Basophils % 0.7 %; Hemoglobin 6.7 g/dL (11.5-15.3); Lymphocytes # 0.4 10^3/uL (0.8-4.8); Lymphocytes % 24.8 %; Mean Corpuscular HGB Conc 32.5 g/dL (30.0-36.0); Mean Corpuscular Hemoglobin 28.9 pg (28.0-34.0); Mean Corpuscular Volume 88.8 fL (81-99); Monocytes # 0.2 10^3/uL (0.2-0.9); Monocytes % 11.7 %; Nucleated Red Blood Cells % 1.4 %; Red Blood Count 2.32 10^6/uL (4.1-5.3); Red Cell Distribution Width 14.6 % (12.1-15.1); White Blood Count 1.5 10^3/uL (4.0-10.0)
[2020-04-17 10:03] LABS: Slide Review Slide Review Perform
[2020-04-17 10:12] LABS: Hematocrit 20.6 % (37.0-47.0)
[2020-04-17 10:14] LABS: Neutrophils # 0.67 10^3/uL (1.8-7.7); Platelet Count 20 10^3/cmm (130-400)
[2020-04-17] MEDS: sodium chloride 0.9% 250 ML 999 ML IV (11:45)
[2020-04-17] MEDS: acetaminophen 325 mg Tablet 650 MG PO (11:45)
[2020-04-17] MEDS: diphenhydrAMINE 25 mg Capsule PO (11:45)
[2020-04-17] MEDS: FUROsemide 10 mg/mL SDV 2mL 20 MG IV (14:10)
[2020-04-24 15:44] LABS: Basophils % 1.2 %; Hematocrit 23.3 % (37.0-47.0); Hemoglobin 7.6 g/dL (11.5-15.3); Lymphocytes # 0.4 10^3/uL (0.8-4.8); Lymphocytes % 22.3 %; Mean Corpuscular HGB Conc 32.6 g/dL (30.0-36.0); Mean Corpuscular Hemoglobin 29.6 pg (28.0-34.0); Mean Corpuscular Volume 90.7 fL (81-99); Monocytes # 0.2 10^3/uL (0.2-0.9); Monocytes % 12.7 %; Nucleated Red Blood Cells % 1.2 %; Red Blood Count 2.57 10^6/uL (4.1-5.3); Red Cell Distribution Width 15.2 % (12.1-15.1); White Blood Count 1.7 10^3/uL (4.0-10.0)
[2020-04-24 16:35] LABS: Neutrophils % 63.8 %; Slide Review Slide Review Perform
[2020-04-24 16:37] LABS: Neutrophils # 0.86 10^3/uL (1.8-7.7); Platelet Count 16 10^3/cmm (130-400)
[2020-04-25] VITALS (9 sets, daily range): BP systolic 110–164; BP diastolic 61–81; PULSE 79–88; RESP 18; TEMP 37–37.3; O2SAT 97–98
== END 2020-04-24 23:59 | disposition home or self-care (01) ==
LOC: ONCMED 07:10
PROVIDERS: PCP Family Medicine; Visit Provider Internal Medicine Medical Oncology
DX: E83.111 Hemochromatosis due to repeated red blood cell transfusions (principal); D46.Z Other myelodysplastic syndromes; E78.5 Hyperlipidemia, unspecified; F41.9 Anxiety disorder, unspecified; F32.9 Major depressive disorder, single episode, unspecified; K21.9 Gastro-esophageal reflux disease without esophagitis
CPT/HCPCS: 36415; 36430; 85025; 86850; 86900; 86920; 96374; J1940; J7050; P9040; P9058

== ENCOUNTER 2020-05-23 05:24 | Outpatient (RCR) | payer MEDICARE, MEDICAID, SELFPAY ==
[2020-04-25] MEDS: acetaminophen 325 mg Tablet 650 MG PO (09:40)
[2020-04-25] MEDS: sodium chloride 0.9% 250 ML 75 ML IV (09:40)
[2020-04-25] MEDS: diphenhydrAMINE 25 mg Capsule PO (09:40)
[2020-04-25] MEDS: FUROsemide 10 mg/mL SDV 2mL 20 MG IVP (12:40)
[2020-05-01 08:56] LABS: Basophils # 0.1 10^3/uL (0.0-0.1); Basophils % 2.4 %; Hematocrit 27.8 % (37.0-47.0); Hemoglobin 9.4 g/dL (11.5-15.3); Lymphocytes # 0.7 10^3/uL (0.8-4.8); Lymphocytes % 26.3 %; Mean Corpuscular HGB Conc 33.8 g/dL (30.0-36.0); Mean Corpuscular Hemoglobin 29.6 pg (28.0-34.0); Mean Corpuscular Volume 87.4 fL (81-99); Monocytes # 0.2 10^3/uL (0.2-0.9); Monocytes % 8.2 %; Neutrophils # 1.25 10^3/uL (1.8-7.7); Nucleated Red Blood Cells % 1.2 %; Red Blood Count 3.18 10^6/uL (4.1-5.3); Red Cell Distribution Width 14.7 % (12.1-15.1); White Blood Count 2.6 10^3/uL (4.0-10.0)
[2020-05-01 09:20] LABS: Slide Review Slide Review Perform
[2020-05-01 09:21] LABS: Platelet Count 20 10^3/cmm (130-400)
[2020-05-08] VITALS (11 sets, daily range): BP systolic 108–160; BP diastolic 53–71; PULSE 68–82; RESP 16–18; TEMP 36.4–36.8; O2SAT 97–100
[2020-05-08 09:15] LABS: Alanine Aminotransferase 8 U/L (0-33); Albumin Level 2.8 g/dL (3.5-5.2); Alkaline Phosphatase 107 IU/L (35-105); Anion Gap 11.2 (5-19); Aspartate Amino Transferase 16 U/L (0-32); Blood Urea Nitrogen 26 mg/dL (8-23); Carbon Dioxide 24 mmol/L (22-29); Chloride 101 mmol/L (98-107); Globulin 3.2 g/dL (1.3-4.6); Glucose 119 mg/dL (65-115); Osmolality Calculated 280 mOsm/kg (285-295); Potassium 4.2 mmol/L (3.5-5.1); Sodium 132 mmol/L (136-145)
[2020-05-08 09:17] LABS: Mean Corpuscular HGB Conc 33.5 g/dL (30.0-36.0); Mean Corpuscular Hemoglobin 30.2 pg (28.0-34.0); Mean Corpuscular Volume 90.2 fL (81-99); Red Blood Count 2.15 10^6/uL (4.1-5.3); Red Cell Distribution Width 15.3 % (12.1-15.1); White Blood Count 1.6 10^3/uL (4.0-10.0)
[2020-05-08 09:45] LABS: Slide Review Slide Review Perform
[2020-05-08 09:46] LABS: Hematocrit 19.4 % (37.0-47.0); Hemoglobin 6.5 g/dL (11.5-15.3)
[2020-05-08 09:47] LABS: Platelet Count 20 10^3/cmm (130-400)
[2020-05-08 09:58] LABS: Absolute Segmented Neutrophil 0.9 10/cmm (1.6-7.1); Band Neutrophils Absolute 0.1 10^3/cmm (0.0-1.2); Lymphocytes 27 %; Segmented Neutrophils 57 %; Total Cells Counted 100 (0-100)
[2020-05-08 09:59] LABS: Anisocytosis 2+; Giant Platelets 1+; Poikilocytosis 2+; Tear Drop Cells 1+
[2020-05-08 10:00] LABS: Platelet Estimate Decreased (Normal)
[2020-05-08 10:12] LABS: Eosinophils 0 %
[2020-05-08] MEDS: acetaminophen 325 mg Tablet 650 MG PO (11:20)
[2020-05-08] MEDS: diphenhydrAMINE 25 mg Capsule PO (11:20)
[2020-05-08] MEDS: sodium chloride 0.9% 250 ML 75 ML IV (11:20)
[2020-05-15 09:45] LABS: Basophils % 1.3 %; Lymphocytes # 0.4 10^3/uL (0.8-4.8); Lymphocytes % 22.6 %; Mean Corpuscular HGB Conc 32.8 g/dL (30.0-36.0); Mean Corpuscular Hemoglobin 29.3 pg (28.0-34.0); Mean Corpuscular Volume 89.2 fL (81-99); Monocytes # 0.2 10^3/uL (0.2-0.9); Monocytes % 10.1 %; Neutrophils % 50.3 %; Nucleated Red Blood Cells % 1.3 %; Red Blood Count 2.22 10^6/uL (4.1-5.3); Red Cell Distribution Width 15.4 % (12.1-15.1); White Blood Count 1.6 10^3/uL (4.0-10.0)
[2020-05-15 11:16] LABS: Hemoglobin 6.5 g/dL (11.5-15.3)
[2020-05-15 11:17] LABS: Hematocrit 19.8 % (37.0-47.0); Platelet Count 14 10^3/cmm (130-400)
[2020-05-15 11:18] LABS: Slide Review Slide Review Perform
[2020-05-16] VITALS (10 sets, daily range): BP systolic 116–133; BP diastolic 57–69; PULSE 75–86; RESP 18; TEMP 36.7–37.2; O2SAT 93–96
[2020-05-16] MEDS: acetaminophen 325 mg Tablet 650 MG PO (08:35)
[2020-05-16] MEDS: sodium chloride 0.9% 250 ML 999 ML IV (08:35)
[2020-05-16] MEDS: diphenhydrAMINE 25 mg Capsule PO (08:35)
[2020-05-16] MEDS: FUROsemide 10 mg/mL SDV 2mL 20 MG IV (10:35)
[2020-05-22 08:45] LABS: Basophils % 1.9 %; Hematocrit 23.9 % (37.0-47.0); Hemoglobin 7.9 g/dL (11.5-15.3); Lymphocytes # 0.5 10^3/uL (0.8-4.8); Lymphocytes % 23.1 %; Mean Corpuscular HGB Conc 33.1 g/dL (30.0-36.0); Mean Corpuscular Hemoglobin 30.3 pg (28.0-34.0); Mean Corpuscular Volume 91.6 fL (81-99); Monocytes # 0.2 10^3/uL (0.2-0.9); Monocytes % 11.5 %; Neutrophils # 1.06 10^3/uL (1.8-7.7); Nucleated Red Blood Cells % 0 %; Red Blood Count 2.61 10^6/uL (4.1-5.3); Red Cell Distribution Width 15.5 % (12.1-15.1); White Blood Count 2.1 10^3/uL (4.0-10.0)
[2020-05-22 09:52] LABS: Platelet Count 16 10^3/cmm (130-400)
[2020-05-22 09:53] LABS: Slide Review Slide Review Perform
[2020-05-23] VITALS (9 sets, daily range): BP systolic 114–132; BP diastolic 60–71; PULSE 77–89; RESP 18; TEMP 36.4–37.3; O2SAT 96–98
[2020-05-23] MEDS: acetaminophen 325 mg Tablet 650 MG PO (09:17)
[2020-05-23] MEDS: diphenhydrAMINE 25 mg Capsule PO (09:18)
[2020-05-23] MEDS: sodium chloride 0.9% 250 ML 999 ML IV (09:18)
[2020-05-23] MEDS: FUROsemide 10 mg/mL SDV 2mL 20 MG IV (11:45)
== END 2020-05-25 23:59 | disposition home or self-care (01) ==
LOC: ONCMED 05:24
PROVIDERS: Internal Medicine Medical Oncology; PCP Family Medicine; Visit Provider Nurse Practitioner
DX: D46.Z Other myelodysplastic syndromes (principal)
CPT/HCPCS: 36430; 80053; 85007; 85025; 86850; 86900; 86920; J1940; J7050; P9040

== ENCOUNTER 2020-06-05 09:55 | Outpatient (RCR) | payer MEDICARE, MEDICAID, SELFPAY ==
[2020-05-29 10:04] LABS: Hemoglobin 9.3 g/dL (11.5-15.3); Mean Corpuscular HGB Conc 33.2 g/dL (30.0-36.0); Mean Corpuscular Hemoglobin 29.6 pg (28.0-34.0); Mean Corpuscular Volume 89.2 fL (81-99); Red Blood Count 3.14 10^6/uL (4.1-5.3); Red Cell Distribution Width 14.7 % (12.1-15.1); White Blood Count 2.1 10^3/uL (4.0-10.0)
[2020-05-29 10:35] LABS: Mean Platelet Volume 11.5 fL (7.4-10.4)
[2020-05-29 10:36] LABS: Platelet Count 24 10^3/cmm (130-400); Slide Review Slide Review Perform
[2020-05-29 10:44] LABS: Absolute Segmented Neutrophil 1.2 10/cmm (1.6-7.1); Band Neutrophils Absolute 0.1 10^3/cmm (0.0-1.2); Eosinophils 0 %; Lymphocytes 26 %; Segmented Neutrophils 58 %; Total Cells Counted 100 (0-100)
[2020-05-29 10:45] LABS: Absolute Neutrophil 1.3 10^3/cmm (1.4-6.5); Anisocytosis 1+; Platelet Estimate Decreased (Normal); Poikilocytosis 2+; Tear Drop Cells 1+
[2020-06-05 09:17] LABS: Hematocrit 22.9 % (37.0-47.0); Hemoglobin 7.7 g/dL (11.5-15.3); Mean Corpuscular HGB Conc 33.6 g/dL (30.0-36.0); Mean Corpuscular Hemoglobin 32.1 pg (28.0-34.0); Mean Corpuscular Volume 95.4 fL (81-99); Red Cell Distribution Width 16.5 % (12.1-15.1); White Blood Count 2.4 10^3/uL (4.0-10.0)
[2020-06-05 09:48] LABS: Platelet Count 21 10^3/cmm (130-400); Slide Review Slide Review Perform
[2020-06-05 09:49] LABS: Absolute Segmented Neutrophil 1.4 10/cmm (1.6-7.1); Band Neutrophils Absolute 0.1 10^3/cmm (0.0-1.2); Eosinophils 0 %; Lymphocytes 25 %; Monocytes Absolute 0.1 10^3/cmm (0.1-0.6); Segmented Neutrophils 59 %; Total Cells Counted 100 (0-100)
[2020-06-05 09:50] LABS: Absolute Neutrophil 1.5 10^3/cmm (1.4-6.5); Platelet Estimate Decreased (Normal); Poikilocytosis 1+; Tear Drop Cells 1+
[2020-06-05] MEDS: sodium chloride 0.9% 250 ML 999 ML IV (10:30)
[2020-06-05] MEDS: acetaminophen 325 mg Tablet 650 MG PO (10:30)
[2020-06-05] MEDS: diphenhydrAMINE 25 mg Capsule PO (10:30)
[2020-06-05 11:55] VITALS: BP 142/75; PULSE 102; RESP 17; TEMP 37.1; O2SAT 92
[2020-06-05 12:10] VITALS: BP 133/77; PULSE 103; RESP 17; TEMP 36.9; O2SAT 92
[2020-06-05 14:00] VITALS: BP 128/76; PULSE 95; RESP 18; TEMP 37.1; O2SAT 92
[2020-06-05 16:05] VITALS: BP 128/58; PULSE 95; RESP 17; TEMP 37.3; O2SAT 92
== END 2020-06-25 23:59 | disposition home or self-care (01) ==
LOC: ONCMED 09:55
PROVIDERS: Nurse Practitioner; PCP Family Medicine; Visit Provider Internal Medicine Medical Oncology
DX: E83.111 Hemochromatosis due to repeated red blood cell transfusions (principal); D46.Z Other myelodysplastic syndromes
CPT/HCPCS: 36430; 85007; 85025; 86850; 86900; 86920; J7050; P9040